=== PATIENT | female | born 1940 | race Caucasian/White ===

== ENCOUNTER 2017-07-14 18:50 | Inpatient (IN) | payer MEDICARE, OTHER, SELFPAY ==
[2017-07-14] MEDS ORDERED: Diphtheria,Pertussis(Acell),Tetanus Vaccine 0.5 ML SDV IM ONE (20:05)
[2017-07-14] MEDS ORDERED: cloNIDine 0.1 MG Tab PO ONE (20:05)
--- NOTE | 2017-07-14 22:38 | EDM.PDOC ---
ED HPI GENERAL MEDICAL PROBLEM - General Chief Complaint: General Stated Complaint: AYESHA LT ARM Time Seen by Provider: 07/14/17 18:55 Source of Information: Reports: Patient, Family History Limitations: Reports: No Limitations - History of Present Illness INITIAL COMMENTS - FREE TEXT/NARRATIVE: 76 y.o.w.f wit h/o CVA, HTN and H/O Sz came to the ed with "shaking of R arm", odynophagia and aphasis. Last time being nl s not known. However, she thinks it started at between 4-5. Lat time being observed being "nl" was yesterday. BP was 220/120 on arrival. Initial screening exam for CVSA was nl. No Gaze Nl FF and FN test. Tongue midline, Speach was nl. 220/120 HR 66 Pulse ox 97 Temp 36.8 Onset Date: 07/14/17 Onset Time: 16:00 (last seen nl yesterday) Duration: Hour(s): ((?)), Intermittent Location: Reports: Face Quality: Reports: Other (off and on r arm shaking, aphasia dysphagia) Improves with: Reports: None Worsens with: Reports: None Context: Reports: Other (H/O CVA) Associated Symptoms: Reports: No Other Symptoms - Related Data Allergies Allergy/AdvReac Type Severity Reaction Status Date / Time No Known Allergies Allergy Verified 08/11/15 19:05 Home Meds: Home Meds Levothyroxine 75 mcg PO DAILY 12/03/14 [History] carBAMazepine [carBAMazepine ER] 200 mg PO DAILY 12/03/14 [History] Metoprolol Tartrate 25 mg PO DAILY 07/14/17 [History] atorvaSTATin [Lipitor] 40 mg PO BEDTIME 07/14/17 [History] carBAMazepine [carBAMazepine ER] 400 mg PO BEDTIME 07/15/17 [History] Past Medical History HEENT History: Reports: Impaired Vision Other HEENT History: wears eyeglasses Cardiovascular History: Reports: High Cholesterol, Hypertension, Other (See Below) Other Cardiovascular History: old pacemaker scar, says it eas removed, can still feel it Neurological History: Reports: CVA, Seizure Other Neuro History: heat stroke, 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, hx seizure disorder, last one in [id number] Social & Family History - Family History Family Medical History: Noncontributory - Tobacco Use Smoking Status *Q: Never Smoker Second Hand Smoke Exposure: No - Caffeine Use Caffeine Use: Reports: None - Recreational Drug Use Recreational Drug Use: No ED ROS GENERAL - Review of Systems Review Of Systems: See Below Constitutional: Reports: No Symptoms HEENT: Reports: No Symptoms Respiratory: Reports: No Symptoms Cardiovascular: Reports: No Symptoms Endocrine: Reports: No Symptoms GI/Abdominal: Reports: No Symptoms : Reports: No Symptoms Musculoskeletal: Reports: No Symptoms Skin: Reports: No Symptoms Neurological: Reports: Tremors (off onn r arm, not since arrival) Psychiatric: Reports: No Symptoms Hematologic/Lymphatic: Reports: No Symptoms Immunologic: Reports: No Symptoms ED EXAM, GENERAL - Physical Exam Exam: See Below Exam Limited By: No Limitations General Appearance: Alert, WD/WN, No Apparent Distress Eye Exam: Bilateral Eye: Normal Inspection Ears: Normal External Exam Ear Exam: Bilateral Ear: Auricle Normal Nose: Normal Inspection, Normal Mucosa Throat/Mouth: Normal Inspection, Normal Lips Head: Atraumatic, Normocephalic Respiratory/Chest: No Respiratory Distress, Lungs Clear, Normal Breath Sounds, No Accessory Muscle Use Cardiovascular: Normal Peripheral Pulses, Regular Rate, Rhythm, No Edema, No Gallop, No Murmur, No Rub Peripheral Pulses: 1+: Carotid (R) GI/Abdominal: Normal Bowel Sounds, Soft, Non-Tender, No Organomegaly (Female) Exam: Deferred Rectal (Female) Exam: Deferred Back Exam: Normal Inspection, Full Range of Motion Extremities: Normal Inspection, Normal Range of Motion, Non-Tender, No Pedal Edema Neurological: Alert, Oriented, CN II-XII Intact, Normal Cognition, Normal Gait, Other (minor weakness right upper and right lower ext, not new.) Psychiatric: Normal Affect, Normal Mood Skin Exam: Warm, Dry, Intact, Normal Color, No Rash Lymphatic: No Adenopathy EKG INTERPRETATION EKG Date: 07/15/17 Time: 00:10 Rhythm: NSR Rate (Beats/Min): 57 [place]: Normal P-Wave: Present QRS: Normal ST-T: Normal QT: Normal Comparison: NA - No Prior EKG Course - Vital Signs Text/Narrative:: 76 y.o.w.f wit h/o CVA, HTN and H/O Sz came to the ed with "shaking of R arm", odynophagia and aphasis. Last time being nl s not known. However, she thinks it started at between 4-5. Lat time being observed being "nl" was yesterday. BP was 220/120 on arrival. Initial screening exam for CVSA was nl. No Gaze Nl FF and FN test. Tongue midline, Speach was nl. 220/120 HR 66 Pulse ox 97 Temp 36.8 , no urinary symptoms PE: WNWD WF with intermittent minor dysphagia and aphasia, minor r sided upper/ lower ext. weakness Imaging: CT head was NAD. Labs: CBC nl Na 141 K 4.1 BUN 17 Cr. 1.1 GFR 48 Impression: H/O CVA, CVA vs TIA vs Myasthenia gravis, HTN encephalopathy Tx: Clonidine 0.1 mg po. Reexam: Pt's BP impoved to 169/76 and she was feeling better. While she was observed in the ED a little longer, she C/O dysphagia abd aphasia, which subsided after 5-6 min. Pt was able to take her night meds. BP was 169/67 on admission 10.28 pm Consultation: Dr. Whaley, Neurologist, [place]: Transfer not indicated at this time, stoke unlikely, Stroke window passed, ASA OK Plan: Admit for obs with tele, MRI brain at 11 am. Last Recorded V/S: Last Vital Signs Temp 36.6 C 07/17/17 08:00 Pulse 61 07/17/17 09:04 Resp 16 07/17/17 08:00 BP 160/79 H 07/17/17 09:04 Pulse Ox 99 07/17/17 08:00 - Orders/Labs/Meds Orders: Medication Orders Aspirin (Ecotrin) 325 mg PO DAILY [facility] Last Admin: 07/17/17 09:05 Dose: 325 mg Admin: 07/16/17 08:20 Dose: 325 mg Admin: 07/15/17 13:15 Dose: 325 mg Atorvastatin Calcium (Lipitor) 40 mg PO BEDTIME [facility] Last Admin: 07/16/17 20:00 Dose: 40 mg Admin: 07/15/17 20:41 Dose: 40 mg Carbamazepine (Tegretol Er) 400 mg PO BEDTIME [facility] Last Admin: 07/16/17 20:00 Dose: 400 mg Admin: 07/15/17 20:42 Dose: 400 mg Carbamazepine (Tegretol Er) 200 mg PO DAILY [facility] Last Admin: 07/17/17 09:04 Dose: 200 mg Admin: 07/16/17 08:20 Dose: 200 mg Admin: 07/15/17 12:55 Dose: Dextrose/Lactated Ringer's (Dextrose 5%-Lactated Ringers) 1,000 mls @ 150 mls/ hr IV ASDIRECTED [facility] Last Admin: 07/16/17 01:27 Dose: 150 mls/hr Infusion: 07/16/17 01:27 Dose: 150 mls/hr Admin: 07/15/17 18:51 Dose: 150 mls/hr Infusion: 07/15/17 18:51 Dose: 150 mls/hr Admin: 07/15/17 12:17 Dose: 150 mls/hr Levothyroxine Sodium (Levothyroxine) 75 mcg PO DAILY [facility] Last Admin: 07/17/17 09:04 Dose: 75 mcg Admin: 07/16/17 08:19 Dose: 75 mcg Metoprolol Tartrate (Lopressor) 25 mg PO DAILY [facility] Last Admin: 07/17/17 09:04 Dose: 25 mg Admin: 07/16/17 08:20 Dose: 25 mg Admin: 07/15/17 12:56 Dose: Sodium Chloride (Saline Flush) 10 ml FLUSH ASDIRECTED PRN PRN Reason: Keep Vein Open Last Admin: 07/14/17 23:13 Dose: 10 ml Labs: Laboratory Tests 07/14/17 07/14/17 07/14/17 Range/Units 21:55 21:55 21:55 WBC 6.3 (4.5-12.0) X10-3/uL RBC 4.03 (3.23-5.20) x10(6)uL Hgb 13.1 (11.5-15.5) g/dL Hct 38.4 (30.0-51.3) % MCV 95.4 (80-96) fL MCH 32.4 (27.7-33.6) pg MCHC 34.0 (32.2-35.4) g/dL RDW 12.2 (11.5-15.5) % Plt Count 151 (125-369) X10(3)uL MPV 7.6 (7.4-10.4) fL Neut % (Auto) 75.8 (46-82) % Lymph % (Auto) 12.9 L (13-37) % [place] % (Auto) 6.3 (4-12) % Eos % (Auto) 3 (1.0-5.0) % Baso % (Auto) 2 (0-2) % Neut # (Auto) 4.8 (1.6-8.3) # Lymph # (Auto) 0.8 (0.6-5.0) # [place] # (Auto) 0.4 (0.0-1.3) # Eos # (Auto) 0.2 (0.0-0.8) # Baso # (Auto) 0.1 (0.0-0.2) # PT 11.4 H (8.7-11.1) INR 1.13 (0.89-1.13) Sodium 145 (135-145) mmol/L Potassium 4.1 (3.5-5.3) mmol/L Chloride 108 (100-110) mmol/L Carbon Dioxide 30 (21-32) mmol/L BUN 17 (7-18) mg/dL Creatinine 1.1 H (0.55-1.02) mg/dL Est Cr Clr Drug Dosing 33.34 mL/min Estimated GFR (MDRD) 48 L (>60) BUN/Creatinine Ratio 15.5 (9-20) Glucose 109 (80-116) mg/dL Calcium 8.7 (8.6-10.2) mg/dL Triglycerides (15-150) mg/dL Cholesterol (50-200) mg/dL LDL Cholesterol Direct (60-130) mg/dL HDL Cholesterol (40-75) mg/dL Cholesterol/HDL Ratio (0-5) Urine Color (YELLOW) Urine Appearance (CLEAR) Urine pH (5.0-6.5) Ur Specific [place] (1.010-1.025) Urine Protein (NEGATIVE) mg/dL Urine Glucose (UA) (NEGATIVE) mg/dL Urine Ketones (NEGATIVE) mg/dL Urine Occult Blood (NEGATIVE) Urine Nitrite (NEGATIVE) Urine Bilirubin (NEGATIVE) Urine Urobilinogen (NEGATIVE) mg/dL Ur Leukocyte Esterase (NEGATIVE) Urine RBC (0) Urine WBC (0) Ur Epithelial Cells Urine Bacteria (NS) Carbamazepine (4.0-12.0) ug/mL 07/14/17 07/15/17 07/15/17 Range/Units 22:35 09:35 09:35 WBC (4.5-12.0) X10-3/uL RBC (3.23-5.20) x10(6)uL Hgb (11.5-15.5) g/dL Hct (30.0-51.3) % MCV (80-96) fL MCH (27.7-33.6) pg MCHC (32.2-35.4) g/dL RDW (11.5-15.5) % Plt Count (125-369) X10(3)uL MPV (7.4-10.4) fL Neut % (Auto) (46-82) % Lymph % (Auto) (13-37) % [place] % (Auto) (4-12) % Eos % (Auto) (1.0-5.0) % Baso % (Auto) (0-2) % Neut # (Auto) (1.6-8.3) # Lymph # (Auto) (0.6-5.0) # [place] # (Auto) (0.0-1.3) # Eos # (Auto) (0.0-0.8) # Baso # (Auto) (0.0-0.2) # PT (8.7-11.1) INR (0.89-1.13) Sodium (135-145) mmol/L Potassium (3.5-5.3) mmol/L Chloride (100-110) mmol/L Carbon Dioxide (21-32) mmol/L BUN (7-18) mg/dL Creatinine (0.55-1.02) mg/dL Est Cr Clr Drug Dosing mL/min Estimated GFR (MDRD) (>60) BUN/Creatinine Ratio (9-20) Glucose (80-116) mg/dL Calcium (8.6-10.2) mg/dL Triglycerides 48 (15-150) mg/dL Cholesterol 156 (50-200) mg/dL LDL Cholesterol Direct 81 (60-130) mg/dL HDL Cholesterol 67 (40-75) mg/dL Cholesterol/HDL Ratio 2.3 (0-5) Urine Color Yellow (YELLOW) Urine Appearance Clear (CLEAR) Urine pH 8.0 H (5.0-6.5) Ur Specific [place] 1.010 (1.010-1.025) Urine Protein Negative (NEGATIVE) mg/dL Urine Glucose (UA) Normal (NEGATIVE) mg/dL Urine Ketones Negative (NEGATIVE) mg/dL Urine Occult Blood Negative (NEGATIVE) Urine Nitrite Negative (NEGATIVE) Urine Bilirubin Negative (NEGATIVE) Urine Urobilinogen Normal (NEGATIVE) mg/dL Ur Leukocyte Esterase Moderate H (NEGATIVE) Urine RBC 0-5 (0) Urine WBC 0-5 (0) Ur Epithelial Cells Occasional Urine Bacteria Rare H (NS) Carbamazepine 7.6 (4.0-12.0) ug/mL Meds: Medications Generic Name Dose Route Start Last Admin Trade Name Abby PRN Reason Stop Dose Admin Aspirin 325 mg 07/15/17 11:15 07/17/17 09:05 Ecotrin PO 325 mg DAILY RENE Administration Atorvastatin Calcium 40 mg 07/15/17 21:00 07/16/17 20:00 Lipitor PO 40 mg BEDTIME RENE Administration Carbamazepine 400 mg 07/15/17 21:00 07/16/17 20:00 Tegretol Er PO 400 mg BEDTIME RENE Administration Carbamazepine 200 mg 07/15/17 11:15 07/17/17 09:04 Tegretol Er PO 200 mg DAILY RENE Administration Dextrose/Lactated Ringer's 1,000 mls @ 150 mls/hr 07/15/17 11:15 07/16/17 01: 27 Dextrose 5%-Lactated Ringers IV 150 mls/hr ASDIRECTED RENE Administration Levothyroxine Sodium 75 mcg 07/16/17 09:00 07/17/17 09:04 Levothyroxine PO 75 mcg DAILY RENE Administration Metoprolol Tartrate 25 mg 07/15/17 11:15 07/17/17 09:04 Lopressor PO 25 mg DAILY RENE Administration Sodium Chloride 10 ml 07/14/17 23:12 07/14/17 23:13 Saline Flush FLUSH 10 ml ASDIRECTED PRN Administration Keep Vein Open Discontinued Medications Generic Name Dose Route Start Last Admin Trade Name Abby PRN Reason Stop Dose Admin Aspirin 324 mg 07/14/17 23:07 07/15/17 00:26 Aspirin PO 07/14/17 23:08 324 mg ONETIME ONE Administration Clonidine HCl 0.1 mg 07/14/17 20:05 07/14/17 20:27 Catapres PO 07/14/17 20:06 0.1 mg ONETIME ONE Administration Diphtheria/Tetanus/Acell Pertussis 0.5 ml 07/14/17 20:05 07/14/17 21:00 Adacel IM 07/14/17 20:06 0.5 ml .ONCE ONE Administration Labetalol HCl 20 mg 07/15/17 12:50 07/15/17 13:55 Normodyne IVPUSH 07/15/17 12:51 20 mg ONETIME ONE Administration Protocol Departure - Departure Time of Disposition: 18:00 Disposition: Refer to Observation Condition: Fair Clinical Impression: CVA (cerebral vascular accident) - Discharge Information
[2017-07-14] MEDS ORDERED: Aspirin 81 MG Tab.Chew PO ONE (23:07)
[2017-07-14] MEDS ORDERED: Sodium Chloride 0.9% 10 ML Syringe FLUSH PRN (23:12)
--- NOTE | 2017-07-15 10:54 | PCM.HP ---
H&P History of Present Illness - General Date of Service: 07/15/17 Admit Problem/Dx: Admission Diagnosis/Problem Admission Diagnosis/Problem CVA, Cerebrovascular accident Source of Information: Patient, Old Records - History of Present Illness Initial Comments - Free Text/Narative: 76-year-old female who came in because of possible stroke. She was knitting when she developed weakness and shaking clumsiness of the right upper extremity. In addition she complained of some difficulty swallowing and dysarthria. All these symptoms have improved in the last 12 hours since she was admitted. However she still lightheaded and dizzy on feet. She has no chest pain or shortness of breath. 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 Kenzie lives alone in an apartment. - Related Data Allergies/Adverse Reactions: Allergies Allergy/AdvReac Type Severity Reaction Status Date / Time No Known Allergies Allergy Verified 08/11/15 19:05 Home Medications: Home Meds Levothyroxine 75 mcg PO DAILY 12/03/14 [History] carBAMazepine [carBAMazepine ER] 200 mg PO DAILY 12/03/14 [History] Metoprolol Tartrate 25 mg PO DAILY 07/14/17 [History] atorvaSTATin [Lipitor] 40 mg PO BEDTIME 07/14/17 [History] carBAMazepine [Carbamazepine ER] 400 mg PO BEDTIME 07/15/17 [History] Past Medical History HEENT History: Reports: Impaired Vision Other HEENT History: wears eyeglasses Cardiovascular History: Reports: High Cholesterol, Hypertension, Other (See Below) Other Cardiovascular History: 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 Exam - Exam Exam: See Below - Vital Signs Vital Signs: Last Vital Signs Temp 97.9 F 07/15/17 08:00 Pulse 64 07/15/17 08:00 Resp 16 07/15/17 08:00 BP 182/79 H 07/15/17 08:00 Pulse Ox 98 07/15/17 08:00 Weight: 67.903 kg - Exam General: Alert, Oriented, 4 HEENT: PERRLA, Hearing Intact, Mucosa Moist & [place], Nares Patent, Normal Nasal Septum, Posterior Pharynx Clear, Conjunctiva Clear, EOMI, EACs Clear, TMs Clear Neck: Supple, Trachea Midline, 2 Lungs: Clear to Auscultation, Normal Respiratory Effort Cardiovascular: Regular Rate, Regular Rhythm GI/Abdominal Exam: Normal Bowel Sounds, Soft, Non-Tender, No Organomegaly, No Distention, No Abnormal Bruit, No Mass, Pelvis Stable (Female) Exam: Deferred Rectal (Female) Exam: Deferred Back Exam: Normal Inspection, Full Range of Motion, NT Extremities: Normal Inspection, Normal Range of Motion, Non-Tender, No Pedal Edema, Normal Capillary Refill Skin: Warm, Dry, Intact Neurological: Cranial Nerves Intact, Focal Deficit (Rt weakness 4+/5) Neuro Extensive - Mental Status: Oriented x3, Normal Cognition Neuro Extensive - Motor, Sensory, Reflexes: Dysarthria Psychiatric: Alert, Normal Affect, Normal Mood - Patient Data Lab Results Last 24 hrs: Laboratory Results - last 24 hr 07/15/17 Range/Units 09:35 Triglycerides 48 (15-150) mg/dL Cholesterol 156 (50-200) mg/dL LDL Cholesterol Direct 81 (60-130) mg/dL HDL Cholesterol 67 (40-75) mg/dL Cholesterol/HDL Ratio 2.3 (0-5) Result Diagrams: 07/14/17 21:55 07/14/17 21:55 EKG INTERPRETATION Rhythm: NSR *Q Meaningful Use (ADM) - VTE *Q VTE Criteria *Q: - Stroke *Q Stroke Criteria *Q: - AMI *Q AMI Criteria *Q: - Problem List (1) Cerebrovascular accident (CVA) determined by clinical assessment SNOMED Code(s): 405781238 ICD Code: I63.9 - CEREBRAL INFARCTION, UNSPECIFIED Status: Acute Current Visit: No (2) HTN (hypertension) SNOMED Code(s): 47860421 ICD Code: I10 - ESSENTIAL (PRIMARY) HYPERTENSION Status: Acute Current Visit: Yes Qualifiers: Hypertension type: essential hypertension Qualified Code(s): I10 - Essential (primary) hypertension (3) HLD (hyperlipidemia) SNOMED Code(s): 77706053 ICD Code: E78.5 - HYPERLIPIDEMIA, UNSPECIFIED Status: Acute Current Visit : Yes Qualifiers: Hyperlipidemia type: unspecified Qualified Code(s): E78.5 - Hyperlipidemia , unspecified (4) Seizure disorder SNOMED Code(s): 706856436 ICD Code: G40.909 - EPILEPSY, UNSP, NOT INTRACTABLE, WITHOUT STATUS EPILEPTICUS Status: Acute Current Visit: Yes Problem List Initiated/Reviewed/Updated: Yes Orders Last 24hrs: Active Orders 24 hr Category Date Time Status Nursing Bedside Swallow Screen [RC] ASDIRECTED Care 07/15/17 09:17 Active OT Evaluation and Treatment [CONS] Routine Cons 07/15/17 09:17 Active PT Evaluation and Treatment [CONS] Routine Cons 07/15/17 09:17 Active Nothing Per Oral Diet [DIET] Diet 07/15/17 Lunch Active CXR [Chest 1V Frontal] [CR] Routine Exams 07/15/17 09:16 Taken BASIC METABOLIC PANEL,BMP [CHEM] AM Lab 07/16/17 05:11 Ordered CBC WITH AUTO DIFF [HEME] AM Lab 07/16/17 05:11 Ordered KEPPRA [REF] Routine Lab 07/15/17 09:35 Received Sodium Chloride 0.9% [Saline Flush] Med 07/14/17 23:12 Active 10 ml FLUSH ASDIRECTED PRN Saline Lock Insert [OM.PC] Routine Oth 07/14/17 23:12 Ordered Medication Orders Sodium Chloride (Saline Flush) 10 ml FLUSH ASDIRECTED PRN PRN Reason: Keep Vein Open Last Admin: 07/14/17 23:13 Dose: 10 ml Assessment/Plan Comment:: I reviewed the [place] chart. I also reviewed the admission notes from 2016 , including an echocardiogram which was found to be normal and an ultrasound of the carotids was negative. I have recommended speech therapy and bedside nursing evaluation for swallowing, thereafter advance the diet. I've also recommended to continue aspirin, a statin, and antihypertensive she was previously taking. We will consult physical and occupational therapy.we are unable to obtain an MRI because of a previous pacemaker pot she has some the left upper chest area
[2017-07-15] MEDS ORDERED: CARBAMAZEPINE 200 MG PO SCH (11:15)
--- NOTE | 2017-07-15 11:26 | CR ---
INDICATION: Pacemaker/stroke. CHEST: AP portable upright view of the chest, 07/15/2017, was compared with . Poor inspiration is noted. Rotation of the chest to the left is noted. The heart did not appear grossly enlarged, but is prominent, compared with the previous study, at least partly due to change in positioning and poor inspiration. It may be within normal limits or somewhat enlarged. PA and lateral views of the chest may be helpful for further evaluation of the heart size, as felt to be clinically necessary. Pacemaker leads are noted, remaining in place, although the pacemaker has apparently been removed. Overlying EKG leads are noted. An active infiltrate or effusion was not seen. IMPRESSION: No acute process. MTDD
[2017-07-15] MEDS: Dextrose 5%-Lactated Ringers 1,000 ML IV SCH ×2 (12:17→18:51)
[2017-07-15] MEDS ORDERED: Labetalol 20 MG/4 ML Syringe IVPUSH ONE (12:50)
[2017-07-15] MEDS: carBAMazepine 200 MG TAB.ER PO SCH ×2 (12:55→20:42)
[2017-07-15] MEDS: Metoprolol Tartrate 25 MG Tab PO SCH (12:56)
[2017-07-15] MEDS: Aspirin 325 MG Tab.EC PO SCH (13:15)
[2017-07-15] MEDS: atorvaSTATin 40 MG Tab PO SCH (20:41)
[2017-07-16] MEDS: Dextrose 5%-Lactated Ringers 1,000 ML IV SCH (01:27)
[2017-07-16] MEDS: Levothyroxine 75 MCG Tab PO SCH (08:19)
[2017-07-16] MEDS: Metoprolol Tartrate 25 MG Tab PO SCH (08:20)
[2017-07-16] MEDS: carBAMazepine 200 MG TAB.ER PO SCH ×2 (08:20→20:00)
[2017-07-16] MEDS: Aspirin 325 MG Tab.EC PO SCH (08:20)
--- NOTE | 2017-07-16 10:21 | PCM.PN ---
- General Info Date of Service: 07/16/17 Subjective Update: Kenzie complains of clumsiness, weakness of the right arm. She still has speech disturbance and is unsteady on her feet.She has no chest pain or shortness of breath, slept well otherwise. Functional Status: Reports: Pain Controlled, Tolerating Diet - Review of Systems General: Reports: No Symptoms HEENT: Reports: No Symptoms Pulmonary: Reports: No Symptoms Cardiovascular: Reports: No Symptoms - Patient Data Vitals - Most Recent: Last Vital Signs Temp 98.0 F 07/16/17 08:00 Pulse 65 07/16/17 08:20 Resp 16 07/16/17 08:00 BP 168/88 H 07/16/17 08:20 Pulse Ox 98 07/16/17 08:00 Weight - Most Recent: 68.629 kg I&O - Last 24 Hours: Intake & Output 07/15/17 07/16/17 07/16/17 22:59 06:59 14:59 Intake Total 1536 1376 Output Total 500 Balance 1036 1376 Lab Results Last 24 Hours: Laboratory Results - last 24 hr 07/16/17 07/16/17 Range/Units 06:55 06:55 WBC 4.5 (4.5-12.0) X10-3/uL RBC 3.76 (3.23-5.20) x10(6)uL Hgb 12.3 (11.5-15.5) g/dL Hct 36.0 (30.0-51.3) % MCV 95.7 (80-96) fL MCH 32.7 (27.7-33.6) pg MCHC 34.2 (32.2-35.4) g/dL RDW 11.9 (11.5-15.5) % Plt Count 130 (125-369) X10(3)uL MPV 7.4 (7.4-10.4) fL Neut % (Auto) 73.9 (46-82) % Lymph % (Auto) 12.0 L (13-37) % [place] % (Auto) 10.2 (4-12) % Eos % (Auto) 3 (1.0-5.0) % Baso % (Auto) 1 (0-2) % Neut # (Auto) 3.4 (1.6-8.3) # Lymph # (Auto) 0.5 L (0.6-5.0) # [place] # (Auto) 0.5 (0.0-1.3) # Eos # (Auto) 0.1 (0.0-0.8) # Baso # (Auto) 0.0 (0.0-0.2) # Sodium 148 H (135-145) mmol/L Potassium 3.8 (3.5-5.3) mmol/L Chloride 110 (100-110) mmol/L Carbon Dioxide 31 (21-32) mmol/L BUN 7 D (7-18) mg/dL Creatinine 1.0 (0.55-1.02) mg/dL Est Cr Clr Drug Dosing 36.68 mL/min Estimated GFR (MDRD) 54 L (>60) BUN/Creatinine Ratio 7.0 L (9-20) Glucose 112 (80-116) mg/dL Calcium 8.9 (8.6-10.2) mg/dL Med Orders - Current: Current Medications Aspirin (Ecotrin) 325 mg PO DAILY [facility] Last Admin: 07/16/17 08:20 Dose: 325 mg Atorvastatin Calcium (Lipitor) 40 mg PO BEDTIME [facility] Last Admin: 07/15/17 20:41 Dose: 40 mg Carbamazepine (Tegretol Er) 400 mg PO BEDTIME [facility] Last Admin: 07/15/17 20:42 Dose: 400 mg Carbamazepine (Tegretol Er) 200 mg PO DAILY [facility] Last Admin: 07/16/17 08:20 Dose: 200 mg Dextrose/Lactated Ringer's (Dextrose 5%-Lactated Ringers) 1,000 mls @ 150 mls/ hr IV ASDIRECTED [facility] Last Admin: 07/16/17 01:27 Dose: 150 mls/hr Levothyroxine Sodium (Levothyroxine) 75 mcg PO DAILY [facility] Last Admin: 07/16/17 08:19 Dose: 75 mcg Metoprolol Tartrate (Lopressor) 25 mg PO DAILY [facility] Last Admin: 07/16/17 08:20 Dose: 25 mg Sodium Chloride (Saline Flush) 10 ml FLUSH ASDIRECTED PRN PRN Reason: Keep Vein Open Last Admin: 07/14/17 23:13 Dose: 10 ml Discontinued Medications Aspirin (Aspirin) 324 mg PO ONETIME ONE Stop: 07/14/17 23:08 Last Admin: 07/15/17 00:26 Dose: 324 mg Clonidine HCl (Catapres) 0.1 mg PO ONETIME ONE Stop: 07/14/17 20:06 Last Admin: 07/14/17 20:27 Dose: 0.1 mg Diphtheria/Tetanus/Acell Pertussis (Adacel) 0.5 ml IM .ONCE ONE Stop: 07/14/17 20:06 Last Admin: 07/14/17 21:00 Dose: 0.5 ml Labetalol HCl (Normodyne) 20 mg IVPUSH ONETIME ONE PRN Reason: Protocol Stop: 07/15/17 12:51 Last Admin: 07/15/17 13:55 Dose: 20 mg - Exam Quality Assessment: No: Supplemental Oxygen General: Alert, Oriented HEENT: Pupils Equal, Pupils Reactive, EOMI, Mucous Membr. Moist/[place] Neck: Supple Lungs: Clear to Auscultation, Normal Respiratory Effort Cardiovascular: Regular Rate, Regular Rhythm Psy/Mental Status: Alert, Normal Affect, Normal Mood - Problem List & Annotations (1) Cerebrovascular accident (CVA) determined by clinical assessment SNOMED Code(s): 206430555 Code(s): I63.9 - CEREBRAL INFARCTION, UNSPECIFIED Status: Acute Current Visit: No (2) HTN (hypertension) SNOMED Code(s): 02153055 Code(s): I10 - ESSENTIAL (PRIMARY) HYPERTENSION Status: Acute Current Visit: Yes Qualifiers: Hypertension type: essential hypertension Qualified Code(s): I10 - Essential (primary) hypertension (3) HLD (hyperlipidemia) SNOMED Code(s): 81753952 Code(s): E78.5 - HYPERLIPIDEMIA, UNSPECIFIED Status: Acute Current Visit : Yes Qualifiers: Hyperlipidemia type: unspecified Qualified Code(s): E78.5 - Hyperlipidemia , unspecified (4) Seizure disorder SNOMED Code(s): 820703509 Code(s): G40.909 - EPILEPSY, UNSP, NOT INTRACTABLE, WITHOUT STATUS EPILEPTICUS Status: Acute Current Visit: Yes - Problem List Review Problem List Initiated/Reviewed/Updated: Yes - My Orders Last 24 Hours: My Active Orders 07/15/17 11:15 carBAMazepine [TEGretol ER] 200 mg PO DAILY 07/15/17 Dinner Full Liquid Diet [DIET] 07/16/17 10:18 Discontinue Telemetry Monitoring [Cardiac Monitoring Discontinue] [RC] Click to Edit Peripheral IV Discontinue [OM.PC] Routine 07/17/17 05:11 BASIC METABOLIC PANEL,BMP [CHEM] AM - Plan Plan:: we'll resume her blood pressure medications this morning -metoprolol. I'll also continue the aspirin and antiplatelet therapy. I appreciate the consultations from physical & occupational therapy,which we'll continue. Speech therapy has appt for swalowing eval this evening. I have discontinued IV line and remote telemetry.I believe she probably go to swing bed for rehabilitation before discharge to home
[2017-07-16] MEDS: atorvaSTATin 40 MG Tab PO SCH (20:00)
[2017-07-17] MEDS: Metoprolol Tartrate 25 MG Tab PO SCH (09:04)
[2017-07-17] MEDS: Levothyroxine 75 MCG Tab PO SCH (09:04)
[2017-07-17] MEDS: carBAMazepine 200 MG TAB.ER PO SCH ×2 (09:04→20:33)
[2017-07-17] MEDS: Aspirin 325 MG Tab.EC PO SCH (09:05)
--- NOTE | 2017-07-17 10:36 | CR ---
INDICATION: Rule out aspiration, currently on nectar thickened liquids. SWALLOWING FUNCTION WITH VIDEO: 3 minutes 21 seconds videofluoroscopy time with DVD recording was obtained 07/16/2017, utilizing various barium-tinged meals. No evidence of penetration or aspiration occurred during the examination. There was retention in the valleculae which was resolved by additional swallows. One to two additional swallows were necessary. The study was otherwise unremarkable. [facility]
--- NOTE | 2017-07-17 14:57 | PN ---
DATE SEEN: 07/17/2017 HISTORY OF PRESENT ILLNESS: Kenzie Luna is a 76-year-old female admitted for possible stroke. Was knitting, developed weakness and shakiness of her right upper extremity, some difficulty swallowing and some difficulty with word finding. Was admitted for observation and treatment. CT scan revealed no evidence of an acute infarct, hemorrhage, or mass-like effect. PT was actively involved. Response was satisfactory, improvement in speech was noted. Swallowing study revealed no evidence of difficulties. Soft foods encouraged. LABORATORY STUDIES: Of significance; CBC is unremarkable. Electrolytes; mildly elevated sodium 145 and 148, GFR 54 and 48, and urine free of concerns. PHYSICAL EXAMINATION: VITAL SIGNS: Stable. Blood pressure 160/79, respirations 16, O2 saturation 99%, temperature 36.6. HEENT: Speech was fluent. NECK: Benign. Thyroid small. CHEST: Decreased breath sounds both lung bases. HEART: Regular without ectopy or murmur. Pacemaker, left upper chest wall. ABDOMEN: Benign. Strength was reduced to about 20%, right upper extremity. ASSESSMENT: Cerebrovascular accident, improving. PLAN: PT happy with outcome, swing bed under consideration, home services noted. [facility], cregivers of similar age available. /[id number] CHARLENE/DEVAN
[2017-07-17] MEDS ORDERED: cloNIDine 0.1 MG Tab PO ONE (18:02)
[2017-07-17] MEDS ORDERED: Labetalol 20 MG/4 ML Syringe IVPUSH ONE (19:55)
[2017-07-17] MEDS: atorvaSTATin 40 MG Tab PO SCH (20:33)
[2017-07-18] MEDS: Levothyroxine 75 MCG Tab PO SCH (08:16)
[2017-07-18] MEDS: Metoprolol Tartrate 25 MG Tab PO SCH (08:17)
[2017-07-18] MEDS: carBAMazepine 200 MG TAB.ER PO SCH ×2 (08:18→20:31)
[2017-07-18] MEDS: Aspirin 325 MG Tab.EC PO SCH (08:18)
[2017-07-18] MEDS: atorvaSTATin 40 MG Tab PO SCH (20:30)
--- NOTE | 2017-07-18 23:17 | PN ---
DATE SEEN: 07/18/2017 SUBJECTIVE: Kenzie Luna is a 76-year-old female, admitted with CVA. CT without contrast, normal. No MRI performed. Her right upper extremity strength is improved, writing with great success. Laboratory studies of significance, unremarkable; 07/17/2016, sodium 148, GFR 54. PHYSICAL EXAMINATION: VITAL SIGNS: 36.6, 59 is the pulse, 140/80, 18 are the respirations, 99%. GENERAL: Cooperative, conversant. NECK: Benign. Thyroid small. CHEST: Clear in all lung scott. HEART: Regular without ectopy, S3, or murmur. EXTREMITIES: Personal Caregiver strength about 10% reduced, compared to left. CVA, right upper extremity weakness improving. PLAN: Medications, care and treatment appropriate. Antiplatelet therapy, 325 mg aspirin on board. Complementary care and well being. Plan to discharge Thursday. /[id number] CHARLENE/DEVAN
[2017-07-19] MEDS: Aspirin 325 MG Tab.EC PO SCH (08:25)
[2017-07-19] MEDS: Levothyroxine 75 MCG Tab PO SCH (08:25)
[2017-07-19] MEDS: Metoprolol Tartrate 25 MG Tab PO SCH (08:25)
[2017-07-19] MEDS: carBAMazepine 200 MG TAB.ER PO SCH ×2 (08:25→20:27)
--- NOTE | 2017-07-19 10:19 | PN ---
DATE SEEN: 07/19/2017 SUBJECTIVE: Italia Luna is a 76-year-old female admitted with acute stroke symptoms, particular of right upper extremity. Progress has been made. PT's ongoing care revealed little need for swing bed care. Strength has improved markedly. LABORATORY STUDIES: None new. OBJECTIVE: VITAL SIGNS: Stable. 36.8, 56, 153/78, 18, and 95% on room air. GENERAL: Speech is fluent. Conduct appropriate. NECK: Benign. Thyroid small. No carotid bruits. CHEST: Clear in all lung scott. HEART: Regular without ectopy or murmur. ABDOMEN: Benign. 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 IMPRESSION: Cerebrovascular accident with right upper extremity weakness. PLAN: Antiplatelet therapy in place. Complementary care and well being. Plan discharge tomorrow. /[id number] CHARLENE/DEVAN
[2017-07-19] MEDS ORDERED: carBAMazepine 200 MG Cap.ER PO ONE (10:56)
[2017-07-19] MEDS: atorvaSTATin 40 MG Tab PO SCH (20:26)
[2017-07-20 08:54] VITALS: BP 153/78
[2017-07-20] MEDS: Aspirin 325 MG Tab.EC PO SCH (08:54)
[2017-07-20] MEDS: Levothyroxine 75 MCG Tab PO SCH (08:54)
[2017-07-20] MEDS: Metoprolol Tartrate 25 MG Tab PO SCH (08:54)
[2017-07-20] MEDS ORDERED: carBAMazepine 200 MG TAB.ER PO SCH (09:00)
--- NOTE | 2017-07-21 01:10 | DISCH ---
DISCHARGE DATE: 07/20/2017 HOSPITAL COURSE: Kenzie Luna is a 76-year-old female, admitted by Dr. Gorman. Presented with suspicion for stroke. Developed weakness, shakiness, and clumsiness, right upper extremity; difficulty swallowing and dysarthric speech. CT scan revealed nothing informative. She has had a previous left CVA with bladder consequences. In-hospital course was uncomplicated. Laboratory studies were performed. Diagnostic interventions, medications reviewed and appropriate, and response was satisfactory. At the time of discharge, PT had reported good gains in the right upper extremity strength, difficulty gait, station was appropriate, use of walker was limited. Discharged in good condition. DISCHARGE MEDICATIONS: Please see med recon list. SURGICAL PROCEDURES: None. CONSULTATION: None. ADDENDUM: A 30 minutes of visit time involved in discharge planning for this patient. /[id number] CHARLENE/DEVAN
[2017-07-21] MEDS ORDERED: carBAMazepine 200 MG Cap.ER PO SCH (09:00)
== END 2017-07-20 11:15 | disposition home or self-care (01) | DRG 66 ==
LOC: FB.ED 18:50 → FB.MS 22:57 → OBSVTOIN 07-15 11:11
PROVIDERS: ADMIT Family Medicine; ATTEND Family Medicine
DX: I63.9 Cerebral infarction, unspecified (principal); G83.21 Monoplegia of upper limb affecting right dominant side; I10 Essential (primary) hypertension; G40.909 Epilepsy, unspecified, not intractable, without status epilepticus; R13.10 Dysphagia, unspecified; R47.01 Aphasia; R53.1 Weakness; Z86.73 Personal history of transient ischemic attack (TIA), and cerebral infarction without residual deficits; E78.5 Hyperlipidemia, unspecified; H54.7 Unspecified visual loss; Z79.82 Long term (current) use of aspirin
CPT/HCPCS: 36415 ×2; 70450; 71045; 80048; 80061; 80156; 81001; 85025; 85610; 90715; 93005 ×2; 99285; A9270 ×2; J7050; 74230; 90471; 92610-GN; 92611-GN; 93010; 97110-GO; 97112-GP; 97116-GP; 97162-GP; 97166-GO; 97530-GO-KX; 97530-GP; 97535-GO; G0378; J7042

== ENCOUNTER 2017-12-09 16:27 | Observation (INO) | payer MEDICARE, OTHER, MEDICAID ==
--- NOTE | 2017-12-09 17:11 | EDM.PDOC ---
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 well last night, ate bfast and lunch, drove to [place] to visit a friend, as she was walking out the director staffing noticed that she took a step backwards, seemed disoriented, did not fall, no incontinence of B or B, no shaking was disoriented on arrival here, seemed postictal does not remember when she was last in hospital (07/09 for 5d for similar sxs) taking all meds, sets them up 2m in advance, on carbamazepin has had seizures since a heat stroke 1996, cannot describe a typical sxs to me, does not remember last szs (05/08 as per [employer]) PCP was Dr Macedo who is retiring, now is Dr Gorman does not know what happened today, no specific c/o now has h/o CVA no f/c/d, no sob, no n/v - Related Data Allergies Allergy/AdvReac Type Severity Reaction Status Date / Time No Known Allergies Allergy Verified 12/09/17 18:27 Home Meds: Home Meds . [Unable to Verify Home Med List] 12/09/17 [History] Past Medical History HEENT History: Reports: Impaired Vision Other HEENT History: wears eyeglasses Cardiovascular History: Reports: High Cholesterol, Hypertension, Other (See Below) Other Cardiovascular History: old pacemaker scar, says it was removed, can still feel it Neurological History: Reports: CVA, Seizure Other Neuro History: heat stroke, 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, hx seizure disorder, last one in mar-2017 Social & Family History - Family History Family Medical History: Noncontributory - Tobacco Use Smoking Status *Q: Never Smoker Second Hand Smoke Exposure: No - Caffeine Use Caffeine Use: Reports: Soda Caffeine Use Comment: 1 can per day. - Recreational Drug Use Recreational Drug Use: No ED ROS GENERAL - Review of Systems Review Of Systems: See Below Constitutional: Reports: Weakness. Denies: Fever, Chills, Diaphoresis, Decreased Appetite HEENT: Reports: No Symptoms Respiratory: Reports: No Symptoms. Denies: Shortness of Breath Cardiovascular: Reports: No Symptoms. Denies: Chest Pain Endocrine: Reports: No Symptoms GI/Abdominal: Reports: No Symptoms. Denies: Abdominal Pain, Nausea, Vomiting : Reports: No Symptoms Musculoskeletal: Reports: No Symptoms Skin: Reports: No Symptoms Neurological: Reports: Confusion, Difficulty Walking, Weakness, Gait Disturbance. Denies: Dizziness, Headache, Numbness Psychiatric: Reports: No Symptoms Hematologic/Lymphatic: Reports: No Symptoms Immunologic: Reports: No Symptoms ED EXAM, NEURO - Physical Exam Exam: See Below Exam Limited By: Altered Mental Status General Appearance: Alert, WD/WN, Other (pleasant, very vague re sxs, poor memory c/w postictal) Eye Exam: Bilateral Eye: Normal Inspection Ears: Normal External Exam, Hearing Grossly Normal Nose: Normal Inspection, Normal Mucosa, No Blood Throat/Mouth: Normal Inspection, Normal Lips, Normal Teeth, Normal Gums, Normal Oropharynx, Normal Voice, No Airway Compromise Head Exam: Atraumatic, Normocephalic Neck: Normal Inspection, Supple, Non-Tender, Full Range of Motion Respiratory/Chest: No Respiratory Distress, Lungs Clear, Normal Breath Sounds, No Accessory Muscle Use, Chest Non-Tender Cardiovascular: Regular Rate, Rhythm, No Edema, No Gallop, No JVD, No Rub, Systolic Murmur GI/Abdominal: Soft, Non-Tender, No Distention Neurological: Alert, CN II-XII Intact, Normal Reflexes, No Motor/Sensory Deficits, Other (DTRs 2+ x 8, somewhat flat affect, vague manner, poor memory, says "that is a good question" often without answering the quesiton) Back Exam: Normal Inspection, Full Range of Motion. No: CVA Tenderness (R), CVA Tenderness (L) Extremities: Normal Inspection, Normal Range of Motion Psychiatric: Depressed Mood, Flat Affect Skin Exam: Warm Course - Vital Signs Last Recorded V/S: Last Vital Signs Temp 36.5 C 12/09/17 16:30 Pulse 65 12/09/17 16:30 Resp 16 12/09/17 16:30 BP 160/81 H 12/09/17 16:30 Pulse Ox 100 12/09/17 16:30 Orthostatic Blood Pressure [ 165/91 Standing] Orthostatic Blood Pressure [ 185/84 Sitting] Orthostatic Blood Pressure [ 176/88 Supine] - Orders/Labs/Meds Orders: Active Orders 24 hr Category Date Time Status Admission Status [Patient Status] [ADT] Routine ADT 12/09/17 18:35 Ordered EKG Documentation Completion [RC] ASDIRECTED Care 12/09/17 17:02 Active Orthostatic Vital Signs [RC] ASDIRECTED Care 12/09/17 17:02 Active Chest 2V [CR] Stat Exams 12/09/17 17:02 Taken Head wo Cont [CT] Stat Exams 12/09/17 17:08 Taken UA W/MICROSCOPIC [URIN] Stat Lab 12/09/17 18:30 Ordered Sodium Chloride 0.9% [Normal Saline] 1,000 ml Med 12/09/17 17:15 Active IV ASDIRECTED EKG 12 Lead [EK] Routine Ther 12/09/17 17:01 Ordered Medication Orders Sodium Chloride (Normal Saline) 1,000 mls @ 999 mls/hr IV ASDIRECTED [facility] Labs: Laboratory Tests 12/09/17 12/09/17 12/09/17 Range/Units 17:10 17:10 17:10 WBC 5.1 (4.5-12.0) X10-3/uL RBC 4.19 (3.23-5.20) x10(6)uL Hgb 14.0 (11.5-15.5) g/dL Hct 40.2 (30.0-51.3) % MCV 95.8 (80-96) fL MCH 33.4 (27.7-33.6) pg MCHC 34.9 (32.2-35.4) g/dL RDW 12.3 (11.5-15.5) % Plt Count 203 (125-369) X10(3)uL MPV 7.1 L (7.4-10.4) fL Neut % (Auto) 70.9 (46-82) % Lymph % (Auto) 15.5 (13-37) % [place] % (Auto) 8.3 (4-12) % Eos % (Auto) 3 (1.0-5.0) % Baso % (Auto) 2 (0-2) % Neut # (Auto) 3.6 (1.6-8.3) # Lymph # (Auto) 0.8 (0.6-5.0) # [place] # (Auto) 0.4 (0.0-1.3) # Eos # (Auto) 0.2 (0.0-0.8) # Baso # (Auto) 0.1 (0.0-0.2) # Sodium 133 L D (135-145) mmol/L Potassium 4.2 (3.5-5.3) mmol/L Chloride 96 L D (100-110) mmol/L Carbon Dioxide 31 (21-32) mmol/L BUN 23 H D (7-18) mg/dL Creatinine 1.2 H (0.55-1.02) mg/dL Est Cr Clr Drug Dosing 34.98 mL/min Estimated GFR (MDRD) 44 L (>60) BUN/Creatinine Ratio 19.2 (9-20) Glucose 106 (80-116) mg/dL Calcium 8.9 (8.6-10.2) mg/dL Total Bilirubin 0.3 (0.1-1.3) mg/dL AST 30 H (5-25) IU/L ALT 20 (12-36) U/L Alkaline Phosphatase 129 H (56-112) IU/L Troponin I < 0.017 L (<0.017-0.056) ng/mL C-Reactive Protein < 0.2 L (0.5-0.9) mg/dL NT-Pro-B Natriuret Pep 334 (<=450) pg/mL Total Protein 7.4 (6.0-8.0) g/dL Albumin 3.9 (3.2-4.6) g/dL Globulin 3.5 g/dL Albumin/Globulin Ratio 1.1 Urine Color (YELLOW) Urine Appearance (CLEAR) Urine pH (5.0-6.5) Ur Specific [place] (1.010-1.025) Urine Protein (NEGATIVE) mg/dL Urine Glucose (UA) (NEGATIVE) mg/dL Urine Ketones (NEGATIVE) mg/dL Urine Occult Blood (NEGATIVE) Urine Nitrite (NEGATIVE) Urine Bilirubin (NEGATIVE) Urine Urobilinogen (NEGATIVE) mg/dL Ur Leukocyte Esterase (NEGATIVE) Urine RBC (0) Urine WBC (0) Ur Squamous Epith Cells (NS,R,O) Urine Bacteria (NS) Carbamazepine 11.0 (4.0-12.0) ug/mL 12/09/17 Range/Units 18:30 WBC (4.5-12.0) X10-3/uL RBC (3.23-5.20) x10(6)uL Hgb (11.5-15.5) g/dL Hct (30.0-51.3) % MCV (80-96) fL MCH (27.7-33.6) pg MCHC (32.2-35.4) g/dL RDW (11.5-15.5) % Plt Count (125-369) X10(3)uL MPV (7.4-10.4) fL Neut % (Auto) (46-82) % Lymph % (Auto) (13-37) % [place] % (Auto) (4-12) % Eos % (Auto) (1.0-5.0) % Baso % (Auto) (0-2) % Neut # (Auto) (1.6-8.3) # Lymph # (Auto) (0.6-5.0) # [place] # (Auto) (0.0-1.3) # Eos # (Auto) (0.0-0.8) # Baso # (Auto) (0.0-0.2) # Sodium (135-145) mmol/L Potassium (3.5-5.3) mmol/L Chloride (100-110) mmol/L Carbon Dioxide (21-32) mmol/L BUN (7-18) mg/dL Creatinine (0.55-1.02) mg/dL Est Cr Clr Drug Dosing mL/min Estimated GFR (MDRD) (>60) BUN/Creatinine Ratio (9-20) Glucose (80-116) mg/dL Calcium (8.6-10.2) mg/dL Total Bilirubin (0.1-1.3) mg/dL AST (5-25) IU/L ALT (12-36) U/L Alkaline Phosphatase (56-112) IU/L Troponin I (<0.017-0.056) ng/mL C-Reactive Protein (0.5-0.9) mg/dL NT-Pro-B Natriuret Pep (<=450) pg/mL Total Protein (6.0-8.0) g/dL Albumin (3.2-4.6) g/dL Globulin g/dL Albumin/Globulin Ratio Urine Color Yellow (YELLOW) Urine Appearance Clear (CLEAR) Urine pH 6.0 (5.0-6.5) Ur Specific [place] 1.015 (1.010-1.025) Urine Protein Negative (NEGATIVE) mg/dL Urine Glucose (UA) Normal (NEGATIVE) mg/dL Urine Ketones Negative (NEGATIVE) mg/dL Urine Occult Blood Negative (NEGATIVE) Urine Nitrite Negative (NEGATIVE) Urine Bilirubin Negative (NEGATIVE) Urine Urobilinogen Normal (NEGATIVE) mg/dL Ur Leukocyte Esterase Large H (NEGATIVE) Urine RBC 0-5 (0) Urine WBC 30-40 H (0) Ur Squamous Epith Cells Few H (NS,R,O) Urine Bacteria Moderate H (NS) Carbamazepine (4.0-12.0) ug/mL Meds: Medications Generic Name Dose Route Start Last Admin Trade Name Freq PRN Reason Stop Dose Admin Sodium Chloride 1,000 mls @ 999 mls/hr 12/09/17 17:15 Normal Saline IV ASDIRECTED RENE - Re-Assessments/Exams Free Text/Narrative Re-Assessment/Exam: 12/09/17 18:[address] without shows a new 1.1 cm hypodense L occipital lesion age indeterminate as per neuroradiologist, no visual changes, on reexamination of eyes: PERRLA, EOMI, nl vessels and disc on L, nl vessels and disc not seen on L pt continues to very vague and appears to have chronic neuro deficiencies altho is O x 3, however she has serious short and detention impaired memory, she may be postictal as one consideration pt refused IV altho has had little to drink, no urine for u/a yet BUN/creat elevated neuroradiologist recommended MRI rather than CTA, will schedule for AM pt very reluctant to be admitted altho ultimately agreed to do so may need formal neuropsych testing alk phos elevated, new, may need bone scan Departure - Departure Time of Disposition: 18:45 Disposition: Refer to Observation Condition: Good Clinical Impression: Near syncope, Confusion, Postictal state, Poor short term memory, Poor long- term memory, Acute prerenal azotemia, Moderate dehydration, Insufficient intake of food and water due to self neglect, Occipital stroke, Elevated serum alkaline phosphatase level - Discharge Information Referrals: Shantanu Gorman MD [Primary Care Provider] - Forms: ED Department Discharge - My Orders Last 24 Hours: My Active Orders 12/09/17 17:01 EKG 12 Lead [EK] Routine 12/09/17 17:02 EKG Documentation Completion [RC] ASDIRECTED Orthostatic Vital Signs [RC] ASDIRECTED Chest 2V [CR] Stat 12/09/17 17:08 Head wo Cont [CT] Stat 12/09/17 17:15 Sodium Chloride 0.9% [Normal Saline] 1,000 ml IV ASDIRECTED 12/09/17 18:30 UA W/MICROSCOPIC [URIN] Stat 12/09/17 18:35 Admission Status [Patient Status] [ADT] Routine - Assessment/Plan Last 24 Hours: My Active Orders 12/09/17 17:01 EKG 12 Lead [EK] Routine 12/09/17 17:02 EKG Documentation Completion [RC] ASDIRECTED Orthostatic Vital Signs [RC] ASDIRECTED Chest 2V [CR] Stat 12/09/17 17:08 Head wo Cont [CT] Stat 12/09/17 17:15 Sodium Chloride 0.9% [Normal Saline] 1,000 ml IV ASDIRECTED 12/09/17 18:30 UA W/MICROSCOPIC [URIN] Stat 12/09/17 18:35 Admission Status [Patient Status] [ADT] Routine
[2017-12-09] MEDS ORDERED: Sodium Chloride 0.9% 1,000 ML IV SCH ×2 (17:15→19:00)
[2017-12-09] MEDS ORDERED: Magnesium Hydroxide 400 MG/5 ML Susp 30 ML Cup PO PRN (18:58)
[2017-12-09] MEDS ORDERED: Zolpidem 5 MG Tab PO PRN (18:58)
[2017-12-09] MEDS ORDERED: Ondansetron 4 MG/2 ML SDV IV PRN (18:58)
[2017-12-09] MEDS ORDERED: Acetaminophen 325 MG Tab PO PRN (18:58)
[2017-12-09] MEDS ORDERED: Enoxaparin 40 MG/0.4 ML Syringe SUBCUT SCH (19:00)
[2017-12-09] MEDS ORDERED: cefTRIAXone 1,000 MG in Sodium Chloride 0.9% 50 ML IV SCH (19:00)
[2017-12-09] MEDS ORDERED: cefTRIAXone 1,000 MG VIAL IV SCH (20:00)
[2017-12-09] MEDS ORDERED: CARBAMAZEPINE 200 MG PO ONE (21:00)
[2017-12-10 08:01] VITALS: BP 138/82
--- NOTE | 2017-12-10 09:00 | PCM.HP ---
H&P History of Present Illness - General Date of Service: 12/10/17 Admit Problem/Dx: Admission Diagnosis/Problem Admission Diagnosis/Problem Occipital cerebral infarction Source of Information: Patient History Limitations: Reports: No Limitations - History of Present Illness Initial Comments - Free Text/Narative: 76-year-old female that was admitted because of a possible seizure or CVA. She was visiting a friend in shelter, where leaving she was noted to almost ' blackout'. She is said to have took a step back and was going to fall. No seizure was witnessed.She has a history of seizures, but has not had one for several years. She also has a history of a stroke, occipital/parietal 2 years ago,and another one this year at the beginning, but she has no resultant deficits from either events. She has hypertension and hypothyroidism previously stable. Kenzie lives alone denies when asked Pain Score (Numeric/FACES): 0 - Related Data Allergies/Adverse Reactions: Allergies Allergy/AdvReac Type Severity Reaction Status Date / Time No Known Allergies Allergy Verified 12/09/17 19:08 Home Medications: Home Meds Levothyroxine 75 mcg PO DAILY 12/09/17 [History] Lisinopril/Hydrochlorothiazide [Lisinopril-Hctz 10-12.5 mg Tab] 1 tab PO DAILY 12/09/17 [History] atorvaSTATin [Lipitor] 40 mg PO DAILY 12/09/17 [History] carBAMazepine [carBAMazepine ER] 200 mg PO Q48H 12/09/17 [History] carBAMazepine [carBAMazepine ER] 400 mg PO BEDTIME 12/09/17 [History] carBAMazepine [carBAMazepine ER] 400 mg PO Q48H 12/09/17 [History] Past Medical History HEENT History: Reports: Impaired Vision Other HEENT History: wears eyeglasses Cardiovascular History: Reports: High Cholesterol, Hypertension, Other (See Below) Other Cardiovascular History: 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 - Recreational Drug Use Recreational Drug Use: No H&P Review of Systems - Review of Systems: Review Of Systems: ROS reveals no pertinent complaints other than HPI. Exam - Exam Exam: See Below - Vital Signs Vital Signs: Last Vital Signs Temp 98.4 F 12/10/17 07:15 Pulse 65 12/10/17 07:15 Resp 18 12/10/17 07:15 BP 138/82 12/10/17 07:15 Pulse Ox 96 12/10/17 07:15 Orthostatic Blood Pressure [ 127/81 Standing] Orthostatic Blood Pressure [ 185/84 Sitting] Orthostatic Blood Pressure [ 118/80 Supine] Weight: 70.42 kg - Exam General: Alert, Oriented, 4 HEENT: PERRLA, Hearing Intact, Mucosa Moist & Hoyt, Nares Patent, Normal Nasal Septum, Posterior Pharynx Clear, Conjunctiva Clear, EOMI, EACs Clear, TMs Clear Neck: Supple, Trachea Midline, 2 Lungs: Clear to Auscultation, Normal Respiratory Effort Cardiovascular: Regular Rate, Regular Rhythm GI/Abdominal Exam: Normal Bowel Sounds, Soft, Non-Tender, No Organomegaly, No Distention, No Abnormal Bruit, No Mass, Pelvis Stable (Female) Exam: Deferred Rectal (Female) Exam: Deferred Back Exam: Normal Inspection, Full Range of Motion, NT Extremities: Normal Inspection, Normal Range of Motion, Non-Tender, No Pedal Edema, Normal Capillary Refill Skin: Warm, Dry, Intact Neurological: Cranial Nerves Intact, Reflexes Equal Bilateral Neuro Extensive - Mental Status: Alert, Oriented x3, Normal Mood/Affect, Normal Cognition Neuro Extensive - Motor, Sensory, Reflexes: CN II-XII Intact, Normal Gait, Normal Reflexes Psychiatric: Alert, Normal Affect, Normal Mood - Patient Data Lab Results Last 24 hrs: Laboratory Results - last 24 hr 12/09/17 12/09/17 12/09/17 Range/Units 17:10 17:10 17:10 WBC 5.1 (4.5-12.0) X10-3/uL RBC 4.19 (3.23-5.20) x10(6)uL Hgb 14.0 (11.5-15.5) g/dL Hct 40.2 (30.0-51.3) % MCV 95.8 (80-96) fL MCH 33.4 (27.7-33.6) pg MCHC 34.9 (32.2-35.4) g/dL RDW 12.3 (11.5-15.5) % Plt Count 203 (125-369) X10(3)uL MPV 7.1 L (7.4-10.4) fL Neut % (Auto) 70.9 (46-82) % Lymph % (Auto) 15.5 (13-37) % Benzie % (Auto) 8.3 (4-12) % Eos % (Auto) 3 (1.0-5.0) % Baso % (Auto) 2 (0-2) % Neut # (Auto) 3.6 (1.6-8.3) # Lymph # (Auto) 0.8 (0.6-5.0) # Benzie # (Auto) 0.4 (0.0-1.3) # Eos # (Auto) 0.2 (0.0-0.8) # Baso # (Auto) 0.1 (0.0-0.2) # Sodium 133 L D (135-145) mmol/L Potassium 4.2 (3.5-5.3) mmol/L Chloride 96 L D (100-110) mmol/L Carbon Dioxide 31 (21-32) mmol/L BUN 23 H D (7-18) mg/dL Creatinine 1.2 H (0.55-1.02) mg/dL Est Cr Clr Drug Dosing 34.98 mL/min Estimated GFR (MDRD) 44 L (>60) BUN/Creatinine Ratio 19.2 (9-20) Glucose 106 (80-116) mg/dL Calcium 8.9 (8.6-10.2) mg/dL Total Bilirubin 0.3 (0.1-1.3) mg/dL AST 30 H (5-25) IU/L ALT 20 (12-36) U/L Alkaline Phosphatase 129 H (56-112) IU/L Troponin I < 0.017 L (<0.017-0.056) ng/mL C-Reactive Protein < 0.2 L (0.5-0.9) mg/dL NT-Pro-B Natriuret Pep 334 (<=450) pg/mL Total Protein 7.4 (6.0-8.0) g/dL Albumin 3.9 (3.2-4.6) g/dL Globulin 3.5 g/dL Albumin/Globulin Ratio 1.1 Urine Color (YELLOW) Urine Appearance (CLEAR) Urine pH (5.0-6.5) Ur Specific [place] (1.010-1.025) Urine Protein (NEGATIVE) mg/dL Urine Glucose (UA) (NEGATIVE) mg/dL Urine Ketones (NEGATIVE) mg/dL Urine Occult Blood (NEGATIVE) Urine Nitrite (NEGATIVE) Urine Bilirubin (NEGATIVE) Urine Urobilinogen (NEGATIVE) mg/dL Ur Leukocyte Esterase (NEGATIVE) Urine RBC (0) Urine WBC (0) Ur Squamous Epith Cells (NS,R,O) Urine Bacteria (NS) Carbamazepine 11.0 (4.0-12.0) ug/mL 12/09/17 12/10/17 12/10/17 Range/Units 18:30 06:10 06:10 WBC 4.4 L (4.5-12.0) X10-3/uL RBC 3.73 (3.23-5.20) x10(6)uL Hgb 12.5 (11.5-15.5) g/dL Hct 35.6 (30.0-51.3) % MCV 95.3 (80-96) fL MCH 33.5 (27.7-33.6) pg MCHC 35.2 (32.2-35.4) g/dL RDW 12.1 (11.5-15.5) % Plt Count 160 (125-369) X10(3)uL MPV 7.0 L (7.4-10.4) fL Neut % (Auto) 68.3 (46-82) % Lymph % (Auto) 18.7 (13-37) % Benzie % (Auto) 8.2 (4-12) % Eos % (Auto) 4 (1.0-5.0) % Baso % (Auto) 1 (0-2) % Neut # (Auto) 3.0 (1.6-8.3) # Lymph # (Auto) 0.8 (0.6-5.0) # Benzie # (Auto) 0.4 (0.0-1.3) # Eos # (Auto) 0.2 (0.0-0.8) # Baso # (Auto) 0.0 (0.0-0.2) # Sodium 135 (135-145) mmol/L Potassium 4.7 (3.5-5.3) mmol/L Chloride 100 (100-110) mmol/L Carbon Dioxide 30 (21-32) mmol/L BUN 18 (7-18) mg/dL Creatinine 1.1 H (0.55-1.02) mg/dL Est Cr Clr Drug Dosing 38.16 mL/min Estimated GFR (MDRD) 48 L (>60) BUN/Creatinine Ratio 16.4 (9-20) Glucose 91 (80-116) mg/dL Calcium 8.1 L (8.6-10.2) mg/dL Total Bilirubin (0.1-1.3) mg/dL AST (5-25) IU/L ALT (12-36) U/L Alkaline Phosphatase (56-112) IU/L Troponin I (<0.017-0.056) ng/mL C-Reactive Protein (0.5-0.9) mg/dL NT-Pro-B Natriuret Pep (<=450) pg/mL Total Protein (6.0-8.0) g/dL Albumin (3.2-4.6) g/dL Globulin g/dL Albumin/Globulin Ratio Urine Color Yellow (YELLOW) Urine Appearance Clear (CLEAR) Urine pH 6.0 (5.0-6.5) Ur Specific [place] 1.015 (1.010-1.025) Urine Protein Negative (NEGATIVE) mg/dL Urine Glucose (UA) Normal (NEGATIVE) mg/dL Urine Ketones Negative (NEGATIVE) mg/dL Urine Occult Blood Negative (NEGATIVE) Urine Nitrite Negative (NEGATIVE) Urine Bilirubin Negative (NEGATIVE) Urine Urobilinogen Normal (NEGATIVE) mg/dL Ur Leukocyte Esterase Large H (NEGATIVE) Urine RBC 0-5 (0) Urine WBC 30-40 H (0) Ur Squamous Epith Cells Few H (NS,R,O) Urine Bacteria Moderate H (NS) Carbamazepine (4.0-12.0) ug/mL Result Diagrams: 12/10/17 06:10 12/10/17 06:10 EKG INTERPRETATION Rhythm: NSR - Problem List (1) Near syncope SNOMED Code(s): 390196483 ICD Code: R55 - SYNCOPE AND COLLAPSE Status: Acute Current Visit: Yes (2) H/O stroke within last year SNOMED Code(s): 173035063 ICD Code: Z86.73 - PRSNL HX OF TIA (TIA), AND CEREB INFRC W/O RESID DEFICITS Status: Chronic Current Visit: Yes (3) Seizure disorder SNOMED Code(s): 579953392 ICD Code: G40.909 - EPILEPSY, UNSP, NOT INTRACTABLE, WITHOUT STATUS EPILEPTICUS Status: Chronic Current Visit: Yes (4) HTN (hypertension) SNOMED Code(s): 79374100 ICD Code: I10 - ESSENTIAL (PRIMARY) HYPERTENSION Status: Chronic Current Visit: Yes Qualifiers: Hypertension type: essential hypertension Qualified Code(s): I10 - Essential (primary) hypertension (5) Hypothyroid SNOMED Code(s): 52563974 ICD Code: E03.9 - HYPOTHYROIDISM, UNSPECIFIED Status: Chronic Current Visit: Yes Qualifiers: Hypothyroidism type: unspecified Qualified Code(s): E03.9 - Hypothyroidism , unspecified Problem List Initiated/Reviewed/Updated: Yes Orders Last 24hrs: Active Orders 24 hr Category Date Time Status Admission Status [Patient Status] [ADT] Routine ADT 12/09/17 18:35 Active Orthostatic Vital Signs [RC] ASDIRECTED Care 12/09/17 17:02 Active Oxygen Therapy [RC] PRN Care 12/09/17 18:58 Active Vital Signs [RC] 08,12,16,20,00,04 Care 12/09/17 18:58 Active Heart Healthy Diet [DIET] Diet 12/10/17 Breakfast Active Chest 2V [CR] Stat Exams 12/09/17 17:02 Taken Head wo Cont [CT] Stat Exams 12/09/17 17:08 Taken BASIC METABOLIC PANEL,BMP [CHEM] DAILY Lab 12/11/17 19:00 Ordered BASIC METABOLIC PANEL,BMP [CHEM] DAILY Lab 12/12/17 19:00 Ordered CBC WITH AUTO DIFF [HEME] AM Lab 12/11/17 05:11 Ordered CBC WITH AUTO DIFF [HEME] AM Lab 12/12/17 05:11 Ordered CULTURE URINE [RM] Routine Lab 12/09/17 18:30 Ordered UA W/MICROSCOPIC [URIN] Stat Lab 12/09/17 18:30 Ordered Acetaminophen [Tylenol] Med 12/09/17 18:58 Active 650 mg PO Q4H PRN Enoxaparin [Lovenox] Med 12/09/17 19:00 Active 40 mg SUBCUT Q24H Magnesium Hydroxide [Milk of Magnesia] Med 12/09/17 18:58 Active 30 ml PO Q12H PRN Ondansetron [Zofran] Med 12/09/17 18:58 Active 4 mg IV Q4H PRN Sodium Chloride 0.9% [Normal Saline] 1,000 ml Med 12/09/17 19:00 Active IV ASDIRECTED Zolpidem [Ambien] Med 12/09/17 18:58 Active 5 mg PO BEDTIME PRN cefTRIAXone [Rocephin] Med 12/09/17 20:00 Active 1,000 mg IV Q24H Resuscitation Status Routine Resus Stat 12/09/17 18:58 Ordered EKG 12 Lead [EK] Routine Ther 12/09/17 17:01 Ordered Medication Orders Acetaminophen (Tylenol) 650 mg PO Q4H PRN PRN Reason: Pain (Mild 1-3)/fever Ceftriaxone Sodium (Rocephin) 1,000 mg IV Q24H [facility] Last Admin: 12/09/17 20:37 Dose: 1,000 mg Enoxaparin Sodium (Lovenox) 40 mg SUBCUT Q24H [facility] Last Admin: 12/09/17 20:37 Dose: 40 mg Sodium Chloride (Normal Saline) 1,000 mls @ 75 mls/hr IV ASDIRECTED [facility] Last Admin: 12/09/17 20:15 Dose: 75 mls/hr Magnesium Hydroxide (Milk Of Magnesia) 30 ml PO Q12H PRN PRN Reason: Constipation Ondansetron HCl (Zofran) 4 mg IV Q4H PRN PRN Reason: Nausea/Vomiting Zolpidem Tartrate (Ambien) 5 mg PO BEDTIME PRN PRN Reason: Sleep Assessment/Plan Comment:: Christian feels fine this morning. She's got fluids, her vital signs have remained stable and she has no new deficits. I feel that she is ready to go back home on a regular medications. Carbamazepine level was normal him a and she'll go home on the same dose.
--- NOTE | 2017-12-10 11:50 | CR ---
INDICATION: Near syncope. CHEST: PA and two lateral views of the chest were obtained 12/09/2017 and compared with 07/15/2017 and 05/04/2010. The heart appeared normal in size and shape with a unipolar pacemaker lead in place. It is unchanged in position. An active infiltrate or effusion was not identified. A moderate dextroconvex scoliosis of the thoracic spine is again noted. The aorta is somewhat tortuous with calcification in the arch. A compression fracture is again noted in the upper middle thoracic spine and appears unchanged from 2009. IMPRESSION: No acute process. MTDD
== END 2017-12-10 10:40 | disposition home or self-care (01) ==
LOC: FB.ED 16:27 → FB.MS 18:35
PROVIDERS: ADMIT Emergency Medicine; ATTEND Family Medicine
DX: R55 Syncope and collapse (principal); I10 Essential (primary) hypertension; E03.9 Hypothyroidism, unspecified; G40.909 Epilepsy, unspecified, not intractable, without status epilepticus; Z79.899 Other long term (current) drug therapy; Z86.73 Personal history of transient ischemic attack (TIA), and cerebral infarction without residual deficits
CPT/HCPCS: 36415; 70450; 71046; 80048; 80053; 80156; 81001; 83880; 84484; 85025; 86140; 87086; 93005; 93010; 96372; 96374; 99284; 99285; A9270; G0378; J0696; J1650; J7030

== ENCOUNTER → 2018-08-17 | Day surgery (SDC) | payer MEDICARE, OTHER ==
[~2018-08-17] MED LIST: Lidocaine 1% 20 ML MDV INJECT ONE; Midazolam 1 MG/ML 2 ML SDV IV ONE; Sodium Chloride 0.9% 10 ML Syringe FLUSH PRN
[2018-08-17 11:11] VITALS: BP 127/79
--- NOTE | 2018-08-18 08:24 | OR ---
DATE OF OPERATION: 08/17/2018 SURGEON: My Barney MD PREOPERATIVE DIAGNOSIS: Visually significant cataract, left eye. POSTOPERATIVE DIAGNOSIS: Visually significant cataract, left eye. PROCEDURES PERFORMED: Phacoemulsification with intraocular lens placement, left eye. ASSISTANTS: None. ANESTHESIA: Local with sedation. COMPLICATIONS: None. BLOOD LOSS: None. IMPLANTS: An Abe [id number] 20.5 diopter lens implanted. CDE: 7.03. DESCRIPTION OF PROCEDURE: After risks and benefits were reviewed with the patient, consent was obtained in the preoperative area, and the left eye was marked with a surgical pen. The patient received dilating drops and moxifloxacin, along with ketorolac in the preoperative area. The patient was taken to the operating room, where a time-out was performed, and the patient was placed under monitored anesthesia care. Topical tetracaine was used for anesthesia. The left eye was prepped and draped for ophthalmic surgery, and the microscope was brought into position and focussed. A paracentesis incision was made, followed by injection of preservative-free 1% lidocaine into the anterior chamber, followed by injection of Viscoat into the anterior chamber. A microkeratome blade was used to make a corneal limbal incision temporarily. A cystotome was used to make the beginning of the capsulorrhexis, which was carried around 360 degrees in a curvilinear fashion using Utrata forceps. A Milian cannula with BSS was used to hydrodissect and hydrodelineate the nucleus. The nucleus was removed in a divide and conquer manner using phacoemulsification. Irrigation and aspiration were used to remove the remaining cortical material. Provisc was used to inflate the capsular bag, and a pre-loaded Abe [id number] 20.5 diopter lens, serial number [id number] was injected into the capsular bag. A Sinskey hook was used to position and center the lens. Next, irrigation and aspiration was used to remove any remaining viscoelastic and cortical material from the anterior chamber. BSS on a cannula was used to inflate the anterior chamber and hydrate the wound. The wound was checked and found to be watertight. 1 mg of vancomycin was injected into the anterior chamber. Drapes were removed and the eye was cleaned. A drop of brimonidine 0.15% and a drop of TobraDex was placed. The eye was shielded, and the patient was taken to the recovery room in stable condition. /[id number] JOSELYN/DEVAN CC: MARCELINO Pepper MD MTDD
== END ==
LOC: FB.SDS 07:42
PROVIDERS: ATTEND Ophthalmology
DX: H25.9 Unspecified age-related cataract (principal); I10 Essential (primary) hypertension; E03.9 Hypothyroidism, unspecified; Z79.899 Other long term (current) drug therapy; Z79.82 Long term (current) use of aspirin; Z79.890 Hormone replacement therapy
CPT/HCPCS: 00142-QZ; J2001; J2250

== ENCOUNTER 2018-09-14 08:08 | Day surgery (SDC) | payer MEDICARE, OTHER ==
[2018-09-14] MEDS ORDERED: Midazolam 1 MG/ML 2 ML SDV IV ONE (08:09)
[2018-09-14] MEDS ORDERED: fentaNYL 100 MCG/2 ML SDV IV ONE (08:09)
[2018-09-14 13:55] VITALS: BP 126/76
--- NOTE | 2018-09-15 12:21 | OR ---
DATE OF OPERATION: 09/14/2018 SURGEON: My Barney MD PREOPERATIVE DIAGNOSIS: Visually significant cataract, right eye. POSTOPERATIVE DIAGNOSIS: Visually significant cataract, right eye. PROCEDURES PERFORMED: Phacoemulsification with intraocular lens placement, right eye. ASSISTANTS: None. ANESTHESIA: Local with sedation. COMPLICATIONS: None. BLOOD LOSS: None. IMPLANTS: Abe [id number], 20.5 diopter lens implanted. CDE: 4.41. DESCRIPTION OF PROCEDURE: After risks and benefits were reviewed with the patient, consent was obtained in the preoperative area, and the operative eye was marked with a surgical pen. The patient received dilating drops and moxifloxacin, along with ketorolac in the preoperative area. The patient was taken to the operating room, where a time-out was performed, and the patient was placed under monitored anesthesia care. Topical tetracaine was used for anesthesia. The operative eye was prepped and draped for ophthalmic surgery, and the microscope was brought into position and focussed. A paracentesis incision was made, followed by injection of preservative-free 1% lidocaine into the anterior chamber, followed by injection of Viscoat into the anterior chamber. A microkeratome blade was used to make a corneal limbal incision temporarily. A cystotome was used to make the beginning of the capsulorrhexis, which was carried around 360 degrees in a curvilinear fashion using Utrata forceps. A Milian cannula with BSS was used to hydrodissect and hydrodelineate the nucleus. The nucleus was removed in a divide and conquer manner using phacoemulsification. Irrigation and aspiration were used to remove the remaining cortical material. Provisc was used to inflate the capsular bag, and a pre-loaded Abe [id number], 20.5 diopter lens, serial number [id number] was injected into the capsular bag. A Sinskey hook was used to position and center the lens. Next, irrigation and aspiration was used to remove any remaining viscoelastic and cortical material from the anterior chamber. BSS on a cannula was used to inflate the anterior chamber and hydrate the wound. The wound was checked and found to be watertight. Drapes were removed and the eye was cleaned. A drop of brimonidine 0.15% and a drop of TobraDex was placed. The eye was shielded, and the patient was taken to the recovery room in stable condition. /[id number] JOSELYN/DEVAN CC: MARCELINO KING MD MTDD
== END 2018-09-14 11:25 | disposition home or self-care (01) ==
LOC: FB.SDS 08:08
PROVIDERS: ATTEND Ophthalmology
DX: H25.9 Unspecified age-related cataract (principal); I10 Essential (primary) hypertension; E03.9 Hypothyroidism, unspecified; Z86.73 Personal history of transient ischemic attack (TIA), and cerebral infarction without residual deficits; Z79.899 Other long term (current) drug therapy; Z79.890 Hormone replacement therapy
CPT/HCPCS: 00142; 66984; J2250; J3010; V2632

== ENCOUNTER 2018-12-10 11:47 | Observation (INO) | payer MEDICARE, OTHER ==
[2018-12-10] MEDS ORDERED: Sodium Chloride 0.9% 10 ML Syringe FLUSH PRN (14:19)
[2018-12-10] MEDS ORDERED: Enoxaparin 80 MG/0.8 ML Syringe SUBCUT ONE (15:25)
--- NOTE | 2018-12-10 15:33 | EDM.PDOC ---
ED HPI GENERAL MEDICAL PROBLEM - General Chief Complaint: General Stated Complaint: SENT FROM CLINIC Time Seen by Provider: 12/10/18 12:40 Source of Information: Reports: Patient, Provider History Limitations: Reports: No Limitations - History of Present Illness INITIAL COMMENTS - FREE TEXT/NARRATIVE: 77-year-old female who had onset of right-sided chest and back pain that she reports was a sharp pain on 12/05/2018. It was worse with deep breath and somewhat with movement. She rates pain as a 5/10. She has no shortness of breath. She has no nausea or vomiting. The pain has been fairly constant and just not going away. She was seen by her primary provider yesterday and her labs came back with elevated d-dimer. A CT scan of her chest was performed today which showed right lower lobe segmental and subsegmental pulmonary embolism with a right lower lobe pulmonary infarct and a small right pleural effusion. She was told by her doctor to come to the hospital for further evaluation. She has no shortness of breath with activity. She noticed no leg swelling or pain. She has had no hemoptysis. There was no antecedent cough, fever or nasal congestion. There are no other associated signs or symptoms. There are no other modifying factors. 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: Other (see below) (Nothing) - Related Data Allergies Allergy/AdvReac Type Severity Reaction Status Date / Time No Known Allergies Allergy Verified 12/10/18 09:40 Home Meds: Home Meds Levothyroxine 75 mcg PO DAILY 12/09/17 [History] Lisinopril/Hydrochlorothiazide [Lisinopril-Hctz 10-12.5 mg Tab] 1 tab PO DAILY 12/09/17 [History] Aspirin 81 mg PO BEDTIME 08/16/18 [History] Simvastatin 20 mg PO DAILY 12/10/18 [History] carBAMazepine [Carbamazepine ER] 100 mg PO BID 12/10/18 [History] Past Medical History HEENT History: Reports: Cataract, Impaired Vision Other HEENT History: BILATERAL CATARACT, POSTERIOR AVIETREUOUS DETACHMENT: SIDE? 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 it was removed, can still feel it Musculoskeletal History: Reports: Other (See Below) Other Musculoskeletal History: chronic joint/shoulder pain Neurological History: Reports: CVA, Seizure Other Neuro History: HX HEAT STROKE, APHASIA R/T CVA Endocrine/Metabolic History: Reports: Hypothyroidism - Infectious Disease History Infectious Disease History: Reports: Chicken Pox, Measles, Mumps - Past Surgical History HEENT Surgical History: Reports: Cataract Surgery Social & Family History - Tobacco Use Smoking Status *Q: Never Smoker - Caffeine Use Caffeine Use: Reports: Coffee Caffeine Use Comment: 1 can per day. - Alcohol Use Alcohol Use History: No - Recreational Drug Use Recreational Drug Use: No - Living Situation & Occupation Occupation: Retired Social History Comment: Lives alone. ED ROS GENERAL - Review of Systems Review Of Systems: See Below Constitutional: Reports: No Symptoms HEENT: Reports: No Symptoms Respiratory: Reports: Pleuritic Chest Pain. Denies: Shortness of Breath, Hemoptysis Cardiovascular: Reports: Chest Pain (Right-sided) Endocrine: Reports: No Symptoms GI/Abdominal: Reports: No Symptoms : Reports: No Symptoms Musculoskeletal: Reports: No Symptoms Skin: Reports: No Symptoms Neurological: Reports: No Symptoms Hematologic/Lymphatic: Reports: No Symptoms Immunologic: Reports: No Symptoms ED EXAM, GENERAL - Physical Exam Exam: See Below Exam Limited By: No Limitations General Appearance: Alert, WD/WN, No Apparent Distress Eye Exam: Bilateral Eye: EOMI, Normal Inspection Throat/Mouth: Normal Inspection, Normal Lips, Normal Oropharynx, No Airway Compromise Head: Atraumatic, Normocephalic Neck: Normal Inspection, Supple, Non-Tender, Full Range of Motion Respiratory/Chest: No Respiratory Distress, Lungs Clear, Normal Breath Sounds, No Accessory Muscle Use, Chest Non-Tender Cardiovascular: Normal Peripheral Pulses, Regular Rate, Rhythm, No JVD, No Rub Peripheral Pulses: 2+: Radial (L), Radial (R), Dorsalis Pedis (L), Dorsalis Pedis (R) GI/Abdominal: Normal Bowel Sounds, Soft, Non-Tender, No Mass, Pelvis Stable Back Exam: Normal Inspection Extremities: Normal Inspection, Normal Range of Motion, Normal Capillary Refill Neurological: Alert, Oriented, CN II-XII Intact, No Motor/Sensory Deficits Psychiatric: Normal Affect, Normal Mood Skin Exam: Warm, Dry, Intact, Normal Color, No Rash EKG INTERPRETATION EKG Date: 12/10/18 Time: 13:36 Rhythm: NSR Rate (Beats/Min): 64 Juliette: Normal P-Wave: Present QRS: Other (Inferior Q's suggesting old inferior IL.) ST-T: Normal QT: Normal Comparison: No Change (From EKG performed on 12/09/2017.) Course - Vital Signs Last Recorded V/S: Last Vital Signs Temp 36.8 C 12/10/18 14:02 Pulse 72 12/10/18 14:02 Resp 18 12/10/18 14:02 BP 107/64 12/10/18 14:02 Pulse Ox 99 12/10/18 14:02 - Orders/Labs/Meds Orders: Active Orders 24 hr Category Date Time Status EKG Documentation Completion [RC] ASDIRECTED Care 12/10/18 13:05 Active Weight [Height and Weight] [RC] ASDIRECTED Care 12/10/18 14:19 Active Enoxaparin [Lovenox] Med 12/10/18 15:25 Once 70 mg SUBCUT ONETIME ONE Sodium Chloride 0.9% [Saline Flush] Med 12/10/18 14:19 Active 10 ml FLUSH ASDIRECTED PRN Saline Lock Insert [OM.PC] Routine Oth 12/10/18 14:19 Ordered EKG 12 Lead [EK] Routine Ther 12/10/18 13:05 Ordered Medication Orders Enoxaparin Sodium (Lovenox) 70 mg SUBCUT ONETIME ONE Stop: 12/10/18 15:26 Sodium Chloride (Saline Flush) 10 ml FLUSH ASDIRECTED PRN PRN Reason: Keep Vein Open Labs: Laboratory Tests 12/10/18 Range/Units 09:28 Troponin I < 0.017 L (<0.017-0.056) ng/mL Meds: Medications Generic Name Dose Route Start Last Admin Trade Name Freq PRN Reason Stop Dose Admin Enoxaparin Sodium 70 mg 12/10/18 15:25 Lovenox SUBCUT 12/10/18 15:26 ONETIME ONE Sodium Chloride 10 ml 12/10/18 14:19 Saline Flush FLUSH ASDIRECTED PRN Keep Vein Open - Re-Assessments/Exams Free Text/Narrative Re-Assessment/Exam: 12/10/18 15:15: Patient with right-sided pulmonary embolus with associated pulmonary infarction. She is vitally stable. I discussed the patient's case with the [place] emergency department doctor and his recommendation was that the patient be admitted. He did not feel the patient would be acceptable for outpatient management. Therefore, I discussed this with the patient and she is agreeable to admission. I discussed this with Dr. Thayer and he will admit the patient this hospital. The patient will be treated with Lovenox one milligram per kilogram subcutaneous twice daily at this point. She is on carbamazepine and there is an interaction with Xarelto that would reduce Xarelto's effectiveness. Departure - Departure Time of Disposition: 15:30 Disposition: Admitted As Inpatient 67 Condition: Fair Clinical Impression: PE, Pulmonary embolism - Discharge Information Referrals: Shantanu Gorman MD [Primary Care Provider] - - My Orders Last 24 Hours: My Active Orders 12/10/18 13:05 EKG Documentation Completion [RC] ASDIRECTED EKG 12 Lead [EK] Routine 12/10/18 14:19 Weight [Height and Weight] [RC] ASDIRECTED Sodium Chloride 0.9% [Saline Flush] 10 ml FLUSH ASDIRECTED PRN Saline Lock Insert [OM.PC] Routine 12/10/18 15:25 Enoxaparin [Lovenox] 70 mg SUBCUT ONETIME ONE - Assessment/Plan Last 24 Hours: My Active Orders 12/10/18 13:05 EKG Documentation Completion [RC] ASDIRECTED EKG 12 Lead [EK] Routine 12/10/18 14:19 Weight [Height and Weight] [RC] ASDIRECTED Sodium Chloride 0.9% [Saline Flush] 10 ml FLUSH ASDIRECTED PRN Saline Lock Insert [OM.PC] Routine 12/10/18 15:25 Enoxaparin [Lovenox] 70 mg SUBCUT ONETIME ONE
[2018-12-10] MEDS ORDERED: Warfarin 5 MG Tab PO ONE (17:21)
--- NOTE | 2018-12-10 17:28 | PCM.HP ---
H&P History of Present Illness - General Date of Service: 12/10/18 Admit Problem/Dx: Admission Diagnosis/Problem Admission Diagnosis/Problem Pulmonary embolism with infarction Source of Information: Patient History Limitations: Reports: No Limitations - History of Present Illness Initial Comments - Free Text/Narative: This is a 77-year-old female patient from having a right thoracic pain both anterior and posterior for about 21 days. It got worse so she saw Dr. Gorman after she was driving her car. He did a CAT scan today showed a PE a pulmonary infarct. Patient denies any shortness of breath, wheezing, coughing, leg swelling, recent travel or surgeries. She has no family or personal history of blood clots - Related Data Allergies/Adverse Reactions: Allergies Allergy/AdvReac Type Severity Reaction Status Date / Time No Known Allergies Allergy Verified 12/10/18 09:40 Home Medications: Home Meds Levothyroxine 75 mcg PO DAILY 12/09/17 [History] Lisinopril/Hydrochlorothiazide [Lisinopril-Hctz 10-12.5 mg Tab] 1 tab PO DAILY 12/09/17 [History] Aspirin 81 mg PO BEDTIME 08/16/18 [History] Simvastatin 20 mg PO DAILY 12/10/18 [History] carBAMazepine [Carbamazepine ER] 100 mg PO BID 12/10/18 [History] Past Medical History HEENT History: Reports: Cataract, Impaired Vision Other HEENT History: BILATERAL CATARACT, POSTERIOR AVIETREUOUS DETACHMENT: SIDE? 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 Musculoskeletal History: Reports: Other (See Below) Other Musculoskeletal History: chronic joint/shoulder pain Neurological History: Reports: CVA, Seizure Other Neuro History: HX HEAT STROKE, APHASIA R/T CVA Endocrine/Metabolic History: Reports: Hypothyroidism Hematologic History: Reports: None Immunologic History: Reports: None Oncologic (Cancer) History: Reports: None - Infectious Disease History Infectious Disease History: Reports: Chicken Pox, Measles, Mumps - Past Surgical History HEENT Surgical History: Reports: Cataract Surgery Social & Family History - Family History Family Medical History: Noncontributory - Tobacco Use Smoking Status *Q: Never Smoker Second Hand Smoke Exposure: No - Caffeine Use Caffeine Use: Reports: None Caffeine Use Comment: 1 can per day. - Recreational Drug Use Recreational Drug Use: No - Living Situation & Occupation Occupation: Retired H&P Review of Systems - Review of Systems: Review Of Systems: See Below General: Reports: No Symptoms HEENT: Reports: No Symptoms Pulmonary: Reports: No Symptoms Cardiovascular: Reports: Chest Pain Gastrointestinal: Reports: No Symptoms Genitourinary: Reports: No Symptoms Musculoskeletal: Reports: No Symptoms Skin: Reports: No Symptoms Psychiatric: Reports: No Symptoms Neurological: Reports: No Symptoms Hematologic/Lymphatic: Reports: No Symptoms Immunologic: Reports: No Symptoms Exam - Exam Exam: See Below - Vital Signs Vital Signs: Last Vital Signs Temp 98.0 F 12/10/18 16:38 Pulse 81 12/10/18 16:38 Resp 18 12/10/18 16:38 BP 125/68 12/10/18 16:38 Pulse Ox 100 12/10/18 16:38 Weight: 146 lb 8 oz - Exam General: Alert HEENT: EACs Clear, EOMI, Hearing Intact, Mucosa Moist & [place], Posterior Pharynx Clear, TMs Clear Neck: Supple, Trachea Midline. No: Lymphadenopathy Lungs: Normal Respiratory Effort, Other (Lungs sounds clear bilaterally. The left side is louder than the right) Cardiovascular: Regular Rate, Regular Rhythm. No: Systolic Murmur GI/Abdominal Exam: Normal Bowel Sounds, Soft, Non-Tender, No Organomegaly, No Distention, No Abnormal Bruit, No Mass Back Exam: Normal Inspection, Full Range of Motion Extremities: Normal Inspection, Non-Tender, No Pedal Edema Neurological: Normal Speech, Normal Tone Neuro Extensive - Mental Status: Alert, Oriented x3, Normal Mood/Affect, Normal Cognition Psychiatric: Alert, Normal Affect, Normal Mood - Patient Data Lab Results Last 24 hrs: Laboratory Results - last 24 hr 12/10/18 Range/Units 09:28 Troponin I < 0.017 L (<0.017-0.056) ng/mL - Problem List (1) Pulmonary infarct SNOMED Code(s): 67107005 ICD Code: I26.99 - OTHER PULMONARY EMBOLISM WITHOUT ACUTE COR PULMONALE Status: Acute Current Visit: Yes (2) Palliative care status SNOMED Code(s): 260694295 ICD Code: Z51.5 - ENCOUNTER FOR PALLIATIVE CARE Status: Acute Current Visit: Yes (3) PE, Pulmonary embolism SNOMED Code(s): 66974280 ICD Code: I26.99 - OTHER PULMONARY EMBOLISM WITHOUT ACUTE COR PULMONALE Status: Acute Current Visit: Yes Problem List Initiated/Reviewed/Updated: Yes Orders Last 24hrs: Active Orders 24 hr Category Date Time Status Admission Status [Patient Status] [ADT] Routine ADT 12/10/18 15:50 Active Cardiac Monitoring [RC] .As Directed Care 12/10/18 15:50 Active EKG Documentation Completion [RC] ASDIRECTED Care 12/10/18 13:05 Active Up ad Crystal [RC] ASDIRECTED Care 12/10/18 17:21 Ordered Vital Signs [RC] Q4H Care 12/10/18 17:24 Ordered Weight [Height and Weight] [RC] ASDIRECTED Care 12/10/18 14:19 Active Regular Diet [DIET] Diet 12/11/18 Breakfast Ordered CBC WITH AUTO DIFF [HEME] Routine Lab 12/10/18 17:23 Ordered COMPREHENSIVE METABOLIC PN,CMP [CHEM] Routine Lab 12/10/18 17:22 Ordered INR,PT,PROTHROMBIN TIME [COAG] DAILY Lab 12/10/18 17:30 Ordered INR,PT,PROTHROMBIN TIME [COAG] DAILY Lab 12/11/18 17:30 Ordered INR,PT,PROTHROMBIN TIME [COAG] DAILY Lab 12/12/18 17:30 Ordered INR,PT,PROTHROMBIN TIME [COAG] DAILY Lab 12/13/18 17:30 Ordered INR,PT,PROTHROMBIN TIME [COAG] DAILY Lab 12/14/18 17:30 Ordered Hydrochlorothiazide/Lisinopril [Lisinopril/HCTZ 10-12.5 Med 12/11/18 09:00 Ordered MG] 1 tab PO DAILY Levothyroxine Med 12/11/18 09:00 Ordered 75 mcg PO DAILY Simvastatin [Zocor] Med 12/11/18 09:00 Ordered 20 mg PO DAILY Sodium Chloride 0.9% [Saline Flush] Med 12/10/18 14:19 Active 10 ml FLUSH ASDIRECTED PRN Warfarin [Coumadin] Med 12/10/18 17:21 Once 5 mg PO ONETIME ONE carBAMazepine [Carbamazepine ER] Med 12/10/18 21:00 Ordered 100 mg PO BID Saline Lock Insert [OM.PC] Routine Oth 12/10/18 14:19 Ordered EKG 12 Lead [EK] Routine Ther 12/10/18 13:05 Ordered Medication Orders Lisinopril/HCTZ (Lisinopril/Hctz 10-12.5 Mg) 1 tab PO DAILY RENE Levothyroxine Sodium (Levothyroxine) 75 mcg PO DAILY RENE Non-Formulary Medication (Carbamazepine [Carbamazepine Er]) 100 mg PO BID RENE Simvastatin (Zocor) 20 mg PO DAILY RENE Sodium Chloride (Saline Flush) 10 ml FLUSH ASDIRECTED PRN PRN Reason: Keep Vein Open Warfarin Sodium (Coumadin) 5 mg PO ONETIME ONE Stop: 12/10/18 17:22 Assessment/Plan Comment:: 1. Admit for observation. 2. The patient wants to be a full code. 3. Vidhi has interaction with her antiseizure medicine so she'll be on Lovenox 1 mg/kg twice a day subcutaneous. 4. Start Coumadin 5 mg a day and daily INRs. 5. Regular diet 6. Up ad crystal. 7. CBC, Chem-12 8. Continue regular medicines and hold aspirin.
[2018-12-10] MEDS ORDERED: Acetaminophen 325 MG Tab PO PRN (22:15)
[2018-12-11] MEDS ORDERED: Levothyroxine 75 MCG Tab***OWN MED PO SCH (06:00)
[2018-12-11 08:48] VITALS: BP 124/62
[2018-12-11] MEDS ORDERED: SIMVASTATIN 20 MG PO SCH (09:00)
[2018-12-11] MEDS ORDERED: Levothyroxine 75 MCG Tab PO SCH (09:00)
[2018-12-11] MEDS ORDERED: Enoxaparin 80 MG/0.8 ML Syringe SUBCUT SCH (09:00)
[2018-12-11] MEDS ORDERED: LISINOPRIL PO SCH (09:00)
[2018-12-11] MEDS ORDERED: HYDROCHLOROTHIAZIDE PO SCH (09:00)
--- NOTE | 2018-12-11 09:36 | PCM.PN ---
- General Info Date of Service: 12/11/18 Admission Dx/Problem (Free Text): Patient says she is doing well. She denies any shortness of breath, wheezing or cough. The pain in her right chest is almost gone now. - Patient Data Vitals - Most Recent: Last Vital Signs Temp 98.1 F 12/11/18 04:56 Pulse 68 12/11/18 04:56 Resp 18 12/11/18 04:56 BP 124/62 12/11/18 08:46 Pulse Ox 97 12/11/18 04:56 Weight - Most Recent: 146 lb 8 oz Lab Results Last 24 Hours: Laboratory Results - last 24 hr 12/10/18 12/10/18 12/10/18 Range/Units 09:28 17:34 17:34 WBC 6.4 (4.5-12.0) X10-3/uL RBC 3.46 (3.23-5.20) x10(6)uL Hgb 11.6 (11.5-15.5) g/dL Hct 33.3 (30.0-51.3) % MCV 96.1 H (80-96) fL MCH 33.6 (27.7-33.6) pg MCHC 34.9 (32.2-35.4) g/dL RDW 12.0 (11.5-15.5) % Plt Count 210 (125-369) X10(3)uL MPV 7.2 L (7.4-10.4) fL Neut % (Auto) 77.6 (46-82) % Lymph % (Auto) 9.7 L (13-37) % [place] % (Auto) 9.0 (4-12) % Eos % (Auto) 3 (1.0-5.0) % Baso % (Auto) 0 (0-2) % Neut # (Auto) 5.0 (1.6-8.3) # Lymph # (Auto) 0.6 (0.6-5.0) # [place] # (Auto) 0.6 (0.0-1.3) # Eos # (Auto) 0.2 (0.0-0.8) # Baso # (Auto) 0.0 (0.0-0.2) # PT (8.7-11.1) INR (0.89-1.13) Sodium 143 (135-145) mmol/L Potassium 3.7 D (3.5-5.3) mmol/L Chloride 105 D (100-110) mmol/L Carbon Dioxide 30 (21-32) mmol/L BUN 36 H D (7-18) mg/dL Creatinine 1.5 H (0.55-1.02) mg/dL Est Cr Clr Drug Dosing 24.08 mL/min Estimated GFR (MDRD) 34 L (>60) BUN/Creatinine Ratio 24.0 H (9-20) Glucose 111 (80-116) mg/dL Calcium 8.7 (8.6-10.2) mg/dL Total Bilirubin 0.4 (0.1-1.3) mg/dL AST 42 H D (5-25) IU/L ALT 21 (12-36) U/L Alkaline Phosphatase 96 (56-112) IU/L Troponin I < 0.017 L (<0.017-0.056) ng/mL Total Protein 6.7 (6.0-8.0) g/dL Albumin 2.9 L (3.2-4.6) g/dL Globulin 3.8 g/dL Albumin/Globulin Ratio 0.8 12/10/08 12/ Range/Units 17:34 06:15 WBC (4.5-12.0) X10-3/uL RBC (3.23-5.20) x10(6)uL Hgb (11.5-15.5) g/dL Hct (30.0-51.3) % MCV (80-96) fL MCH (27.7-33.6) pg MCHC (32.2-35.4) g/dL RDW (11.5-15.5) % Plt Count (125-369) X10(3)uL MPV (7.4-10.4) fL Neut % (Auto) (46-82) % Lymph % (Auto) (13-37) % [place] % (Auto) (4-12) % Eos % (Auto) (1.0-5.0) % Baso % (Auto) (0-2) % Neut # (Auto) (1.6-8.3) # Lymph # (Auto) (0.6-5.0) # [place] # (Auto) (0.0-1.3) # Eos # (Auto) (0.0-0.8) # Baso # (Auto) (0.0-0.2) # PT 10.3 10.2 (8.7-11.1) INR 1.06 1.05 (0.89-1.13) Sodium (135-145) mmol/L Potassium (3.5-5.3) mmol/L Chloride (100-110) mmol/L Carbon Dioxide (21-32) mmol/L BUN (7-18) mg/dL Creatinine (0.55-1.02) mg/dL Est Cr Clr Drug Dosing mL/min Estimated GFR (MDRD) (>60) BUN/Creatinine Ratio (9-20) Glucose (80-116) mg/dL Calcium (8.6-10.2) mg/dL Total Bilirubin (0.1-1.3) mg/dL AST (5-25) IU/L ALT (12-36) U/L Alkaline Phosphatase (56-112) IU/L Troponin I (<0.017-0.056) ng/mL Total Protein (6.0-8.0) g/dL Albumin (3.2-4.6) g/dL Globulin g/dL Albumin/Globulin Ratio Med Orders - Current: Current Medications Acetaminophen (Tylenol) 650 mg PO Q4H PRN PRN Reason: Pain Enoxaparin Sodium (Lovenox) 70 mg SUBCUT BID [facility] Last Admin: 12/11/18 08:46 Dose: 70 mg Lisinopril/HCTZ (Lisinopril/Hctz 10-12.5 Mg) 1 tab PO DAILY [facility] Last Admin: 12/11/18 08:46 Dose: 1 tab Levothyroxine Sodium (Levothyroxine) 75 mcg PO 0600 [facility] Last Admin: 12/11/18 06:24 Dose: 75 mcg [Carbamazepine Er] (100 Mg)Own Med) 100 mg PO BID [facility] Last Admin: 12/11/18 08:46 Dose: 100 mg Simvastatin (Zocor) 20 mg PO DAILY [facility] Last Admin: 12/11/18 08:47 Dose: 20 mg Sodium Chloride (Saline Flush) 10 ml FLUSH ASDIRECTED PRN PRN Reason: Keep Vein Open Discontinued Medications Enoxaparin Sodium (Lovenox) 70 mg SUBCUT ONETIME ONE Stop: 12/10/18 15:26 Last Admin: 12/10/18 17:03 Dose: 70 mg Levothyroxine Sodium (Levothyroxine) 75 mcg PO DAILY RENE Warfarin Sodium (Coumadin) 5 mg PO ONETIME ONE Stop: 12/10/18 17:22 Last Admin: 12/10/18 19:00 Dose: 5 mg - Exam General: Alert, Oriented, Cooperative Lungs: Normal Respiratory Effort, Decreased Breath Sounds (Right compared to left. Both lungs are clear.) Cardiovascular: Regular Rate, Regular Rhythm, No Murmurs. No: Bradycardia, Tachycardia Extremities: Normal Inspection, No Pedal Edema - Problem List & Annotations (1) Pulmonary infarct SNOMED Code(s): 95905796 Code(s): I26.99 - OTHER PULMONARY EMBOLISM WITHOUT ACUTE COR PULMONALE Status: Acute Current Visit: Yes (2) Palliative care status SNOMED Code(s): 278117864 Code(s): Z51.5 - ENCOUNTER FOR PALLIATIVE CARE Status: Acute Current Visit: Yes (3) PE, Pulmonary embolism SNOMED Code(s): 22871564 Code(s): I26.99 - OTHER PULMONARY EMBOLISM WITHOUT ACUTE COR PULMONALE Status: Acute Current Visit: Yes - Problem List Review Problem List Initiated/Reviewed/Updated: Yes - My Orders Last 24 Hours: My Active Orders 12/10/18 17:21 Up ad Crystal [RC] ASDIRECTED 12/10/18 17:24 Vital Signs [RC] Q4H 12/10/18 21:00 carBAMazepine [Carbamazepine ER] 100 mg PO BID 12/10/18 22:15 Acetaminophen [Tylenol] 650 mg PO Q4H PRN 12/11/18 00:16 Code Status [Resuscitation Status] Routine 12/11/18 06:00 Levothyroxine 75 mcg PO 0600 12/11/18 09:00 Enoxaparin [Lovenox] 70 mg SUBCUT BID Hydrochlorothiazide/Lisinopril [Lisinopril/HCTZ 10-12.5 MG] 1 tab PO DAILY Simvastatin [Zocor] 20 mg PO DAILY 12/11/18 Breakfast Regular Diet [DIET] 12/12/18 17:30 INR,PT,PROTHROMBIN TIME [COAG] DAILY 12/13/18 17:30 INR,PT,PROTHROMBIN TIME [COAG] DAILY 12/14/18 17:30 INR,PT,PROTHROMBIN TIME [COAG] DAILY - Plan Plan:: 1. Continue Lovenox and Coumadin. 2. Teach patient how to give Lovenox shots. 3. If the patient can give her some Lovenox shots. Consider discharge later today. Patient has had these symptoms for 3 weeks and she is hemodynamically stable. According to up-to-date most sequelae from PE happens within the first week.
--- NOTE | 2018-12-11 11:17 | PCM.DCSUM1 ---
Discharge Summary - Hospital Course Free Text/Narrative:: Hospital course-patient was monitored overnight and her vital signs are stable afebrile and oxygen was in the high 90s. She was started on Lovenox 70 units twice a day with Coumadin 5 mg a day. For his INR of course was within normal limits. Her pain in her right thorax stopped after the first night. Patient was educated on how to give Lovenox shots that she was able to do. Pharmacy suggested we give her 2 units of Lovenox once a day because of her creatinine clearance that was changed. We'll discharge the patient home on Lovenox 60 units a day with Coumadin 5 mg a day. I discussed home health and she defers. She'll follow-up with her primary care physician in 3 days with a INR. Brief History: This is a 77-year-old female patient from having a right thoracic pain both anterior and posterior for about 21 days. It got worse so she saw Dr. Gorman after she was driving her car. He did a CAT scan today showed a PE a pulmonary infarct. Patient denies any shortness of breath, wheezing, coughing, leg swelling, recent travel or surgeries. She has no family or personal history of blood clots Diagnosis: Stroke: No - Discharge Data Discharge Date: 12/11/18 Discharge Disposition: Home, Self-Care 01 Condition: Stable - Discharge Diagnosis/Problem(s) (1) Pulmonary infarct SNOMED Code(s): 98189282 ICD Code: I26.99 - OTHER PULMONARY EMBOLISM WITHOUT ACUTE COR PULMONALE Status: Acute Current Visit: Yes (2) Palliative care status SNOMED Code(s): 589441399 ICD Code: Z51.5 - ENCOUNTER FOR PALLIATIVE CARE Status: Acute Current Visit: Yes (3) PE, Pulmonary embolism SNOMED Code(s): 80547403 ICD Code: I26.99 - OTHER PULMONARY EMBOLISM WITHOUT ACUTE COR PULMONALE Status: Acute Current Visit: Yes - Patient Instructions Diet, Other: Low leaned vegetable Activity: As Tolerated Driving: May Drive Today Showering/Bathing: May Shower Other/Special Instructions: 1. Recheck with Dr. Gorman in 3 days with an INR. - Discharge Plan Prescriptions/Med Rec: Enoxaparin [Lovenox] 60 mg SUBCUT DAILY #5 syringe Warfarin [Coumadin] 5 mg PO DAILY #30 tab Home Medications: Home Meds Levothyroxine 75 mcg PO DAILY 12/09/17 [History] Lisinopril/Hydrochlorothiazide [Lisinopril-Hctz 10-12.5 mg Tab] 1 tab PO DAILY 12/09/17 [History] Aspirin 81 mg PO BEDTIME 08/16/18 [History] Simvastatin 20 mg PO DAILY 12/10/18 [History] carBAMazepine [Carbamazepine ER] 100 mg PO BID 12/10/18 [History] Enoxaparin [Lovenox] 60 mg SUBCUT DAILY #5 syringe 12/11/18 [Rx] Warfarin [Coumadin] 5 mg PO DAILY #30 tab 12/11/18 [Rx] Forms: ED Department Discharge Referrals: Shantanu Gorman MD [Primary Care Provider] - - Discharge Summary/Plan Comment DC Time >30 min.: No - Patient Data Vitals - Most Recent: Last Vital Signs Temp 98.1 F 12/11/18 04:56 Pulse 68 12/11/18 04:56 Resp 18 12/11/18 04:56 BP 124/62 12/11/18 08:46 Pulse Ox 97 12/11/18 04:56 Weight - Most Recent: 146 lb 8 oz Lab Results - Last 24 hrs: Laboratory Results - last 24 hr 12/10/18 12/10/18 12/10/18 Range/Units 09:28 17:34 17:34 WBC 6.4 (4.5-12.0) X10-3/uL RBC 3.46 (3.23-5.20) x10(6)uL Hgb 11.6 (11.5-15.5) g/dL Hct 33.3 (30.0-51.3) % MCV 96.1 H (80-96) fL MCH 33.6 (27.7-33.6) pg MCHC 34.9 (32.2-35.4) g/dL RDW 12.0 (11.5-15.5) % Plt Count 210 (125-369) X10(3)uL MPV 7.2 L (7.4-10.4) fL Neut % (Auto) 77.6 (46-82) % Lymph % (Auto) 9.7 L (13-37) % Webb % (Auto) 9.0 (4-12) % Eos % (Auto) 3 (1.0-5.0) % Baso % (Auto) 0 (0-2) % Neut # (Auto) 5.0 (1.6-8.3) # Lymph # (Auto) 0.6 (0.6-5.0) # Webb # (Auto) 0.6 (0.0-1.3) # Eos # (Auto) 0.2 (0.0-0.8) # Baso # (Auto) 0.0 (0.0-0.2) # PT (8.7-11.1) INR (0.89-1.13) Sodium 143 (135-145) mmol/L Potassium 3.7 D (3.5-5.3) mmol/L Chloride 105 D (100-110) mmol/L Carbon Dioxide 30 (21-32) mmol/L BUN 36 H D (7-18) mg/dL Creatinine 1.5 H (0.55-1.02) mg/dL Est Cr Clr Drug Dosing 24.08 mL/min Estimated GFR (MDRD) 34 L (>60) BUN/Creatinine Ratio 24.0 H (9-20) Glucose 111 (80-116) mg/dL Calcium 8.7 (8.6-10.2) mg/dL Total Bilirubin 0.4 (0.1-1.3) mg/dL AST 42 H D (5-25) IU/L ALT 21 (12-36) U/L Alkaline Phosphatase 96 (56-112) IU/L Troponin I < 0.017 L (<0.017-0.056) ng/mL Total Protein 6.7 (6.0-8.0) g/dL Albumin 2.9 L (3.2-4.6) g/dL Globulin 3.8 g/dL Albumin/Globulin Ratio 0.8 12/10/18 12/11/18 Range/Units 17:34 06:15 WBC (4.5-12.0) X10-3/uL RBC (3.23-5.20) x10(6)uL Hgb (11.5-15.5) g/dL Hct (30.0-51.3) % MCV (80-96) fL MCH (27.7-33.6) pg MCHC (32.2-35.4) g/dL RDW (11.5-15.5) % Plt Count (125-369) X10(3)uL MPV (7.4-10.4) fL Neut % (Auto) (46-82) % Lymph % (Auto) (13-37) % [place] % (Auto) (4-12) % Eos % (Auto) (1.0-5.0) % Baso % (Auto) (0-2) % Neut # (Auto) (1.6-8.3) # Lymph # (Auto) (0.6-5.0) # Webb # (Auto) (0.0-1.3) # Eos # (Auto) (0.0-0.8) # Baso # (Auto) (0.0-0.2) # PT 10.3 10.2 (8.7-11.1) INR 1.06 1.05 (0.89-1.13) Sodium (135-145) mmol/L Potassium (3.5-5.3) mmol/L Chloride (100-110) mmol/L Carbon Dioxide (21-32) mmol/L BUN (7-18) mg/dL Creatinine (0.55-1.02) mg/dL Est Cr Clr Drug Dosing mL/min Estimated GFR (MDRD) (>60) BUN/Creatinine Ratio (9-20) Glucose (80-116) mg/dL Calcium (8.6-10.2) mg/dL Total Bilirubin (0.1-1.3) mg/dL AST (5-25) IU/L ALT (12-36) U/L Alkaline Phosphatase (56-112) IU/L Troponin I (<0.017-0.056) ng/mL Total Protein (6.0-8.0) g/dL Albumin (3.2-4.6) g/dL Globulin g/dL Albumin/Globulin Ratio Med Orders - Current: Current Medications Acetaminophen (Tylenol) 650 mg PO Q4H PRN PRN Reason: Pain Enoxaparin Sodium (Lovenox) 70 mg SUBCUT BID [facility] Last Admin: 12/11/18 08:46 Dose: 70 mg Lisinopril/HCTZ (Lisinopril/Hctz 10-12.5 Mg) 1 tab PO DAILY [facility] Last Admin: 12/11/18 08:46 Dose: 1 tab Levothyroxine Sodium (Levothyroxine) 75 mcg PO 0600 [facility] Last Admin: 12/11/18 06:24 Dose: 75 mcg [Carbamazepine Er] (100 Mg)Own Med) 100 mg PO BID [facility] Last Admin: 12/11/18 08:46 Dose: 100 mg Simvastatin (Zocor) 20 mg PO DAILY [facility] Last Admin: 12/11/18 08:47 Dose: 20 mg Sodium Chloride (Saline Flush) 10 ml FLUSH ASDIRECTED PRN PRN Reason: Keep Vein Open Discontinued Medications Enoxaparin Sodium (Lovenox) 70 mg SUBCUT ONETIME ONE Stop: 12/10/18 15:26 Last Admin: 12/10/18 17:03 Dose: 70 mg Levothyroxine Sodium (Levothyroxine) 75 mcg PO DAILY [facility] Warfarin Sodium (Coumadin) 5 mg PO ONETIME ONE Stop: 12/10/18 17:22 Last Admin: 12/10/18 19:00 Dose: 5 mg
== END 2018-12-11 13:00 | disposition home or self-care (01) ==
LOC: FB.ED 11:47 → FB.MS 15:50
PROVIDERS: ADMIT Family Medicine; ATTEND Family Medicine
DX: I26.99 Other pulmonary embolism without acute cor pulmonale (principal); I10 Essential (primary) hypertension; E78.00 Pure hypercholesterolemia, unspecified; E03.9 Hypothyroidism, unspecified; Z86.73 Personal history of transient ischemic attack (TIA), and cerebral infarction without residual deficits; Z79.82 Long term (current) use of aspirin; Z79.01 Long term (current) use of anticoagulants; Z79.899 Other long term (current) drug therapy; Z95.0 Presence of cardiac pacemaker
CPT/HCPCS: 36415; 80053; 84484; 85025; 85610; 93005; 96372; 99283; A9270-GY; G0378; J1650

== ENCOUNTER 2020-01-17 18:38 | Emergency (ER) | payer MEDICARE, OTHER, MEDICAID ==
[2020-01-17] MEDS ORDERED: Sodium Chloride 0.9% 10 ML Syringe FLUSH PRN (18:50)
--- NOTE | 2020-01-17 19:43 | CT ---
INDICATION: Slurred speech. Confusion. History of CVA. CT HEAD WITHOUT CONTRAST: Spiral 3.75 mm axial sections were obtained through the brain without contrast with sagittal and coronal reconstructions and axial reconstructions 01/17/20 and compared with 12/09/17 and 07/14/17. Total exam DLP was 1373.85 mGy-cm. There are again noted calcifications in the internal carotid arteries. Areas encephalomalacia are noted in the left occipital and temporal lobes extending minimally into the posterior parietal area on the left. White matter changes are also noted, compatible with moderate microvascular disease. The white matter changes appear to be slightly increased. Lacunar infarct is noted in the right basal ganglia anteriorly as previously. There is some cortical atrophy with prominence of sulci noted, overall similar to the previous study, but appearing somewhat increased in the left sylvian fissure area - temporal lobe. A definite acute intracranial abnormality such as bleeding site or hematoma was not identified. Although with new areas of low-density abnormality in the white matter, there may be evolving subcortical changes that may be acute. No shift of midline structures was noted. Ventricles are prominent, compatible with central atrophy. The paranasal sinuses and mastoid air cells appear to be fairly well aerated. Orbits appear to be grossly intact. No definite cranial abnormality was seen. IMPRESSION: 1. Encephalomalacia most prominent in the left occipital area extending into the temporal and posterior parietal areas on the left. 2. Central and cortical atrophy is noted. 3. Moderate microvascular disease-type changes are noted in the white matter with some appearing new compared with the previous study. The possibility of acute change in those areas and even in the areas of previous encephalomalacia - previous thrombotic stroke, cannot be excluded. 4. Calcifications noted in the internal carotid arteries. Report was called to Dr. Calderon at 1904 hours. [facility]
--- NOTE | 2020-01-17 19:46 | CR ---
INDICATION: CVA. CHEST, ONE VIEW: A single portable AP upright view of the chest 01/17/20 was compared with 12/09/17 and 07/15/17. Unipolar pacemaker is unchanged in position. The heart is normal in size and shape. The aorta is tortuous with calcification in the arch, as previously. An active infiltrate or effusion was not identified with a minimal density at the left costophrenic angle, unchanged from the previous study of 12/09/17, likely fibrotic in nature. IMPRESSION: No acute process. MTDD
--- NOTE | 2020-01-17 19:58 | EDM.PDOC ---
ED HPI GENERAL MEDICAL PROBLEM - General Stated Complaint: slurred speech Time Seen by Provider: 01/17/20 18:45 Source of Information: Reports: Patient History Limitations: Reports: No Limitations - History of Present Illness INITIAL COMMENTS - FREE TEXT/NARRATIVE: Patient presented to the ED because of slurred speech which occurred at 5:30 pm and lasted for 30 minutes. Patient's friend also noticed that Kenzie has some shaking of the UE and later on she was confused and disoriented. Upon her arrival in the ED she is AAO x3 with a GCS of 15 and her slurred speech has resolved. - Related Data Allergies Allergy/AdvReac Type Severity Reaction Status Date / Time No Known Allergies Allergy Verified 12/10/18 09:40 Home Meds: Home Meds Levothyroxine 75 mcg PO DAILY 12/09/17 [History] Lisinopril/Hydrochlorothiazide [Lisinopril-Hctz 10-12.5 mg Tab] 1 tab PO DAILY 12/09/17 [History] Aspirin 81 mg PO BEDTIME 08/16/18 [History] Simvastatin 20 mg PO DAILY 12/10/18 [History] carBAMazepine [Carbamazepine ER] 100 mg PO BID 12/10/18 [History] Enoxaparin [Lovenox] 60 mg SUBCUT DAILY #5 syringe 12/11/18 [Rx] Warfarin [Coumadin] 5 mg PO DAILY #30 tab 12/11/18 [Rx] Past Medical History HEENT History: Reports: Cataract, Impaired Vision Other HEENT History: BILATERAL CATARACT, POSTERIOR AVIETREUOUS DETACHMENT: SIDE? 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 it was removed, can still feel it Respiratory History: Reports: None, PE Gastrointestinal History: Reports: None Genitourinary History: Reports: None BULK LOADER History: Reports: None Musculoskeletal History: Reports: Other (See Below) Other Musculoskeletal History: chronic joint/shoulder pain Neurological History: Reports: CVA, Seizure Other Neuro History: HX HEAT STROKE, APHASIA R/T CVA Endocrine/Metabolic History: Reports: Hypothyroidism Hematologic History: Reports: None Immunologic History: Reports: None Oncologic (Cancer) History: Reports: None - Infectious Disease History Infectious Disease History: Reports: Chicken Pox, Measles, Mumps - Past Surgical History HEENT Surgical History: Reports: Cataract Surgery Social & Family History - Family History Family Medical History: Noncontributory - Caffeine Use Caffeine Use: Reports: None Caffeine Use Comment: 1 can per day. - Living Situation & Occupation Occupation: Retired ED ROS GENERAL - Review of Systems Review Of Systems: See Below Constitutional: Reports: No Symptoms HEENT: Reports: No Symptoms Respiratory: Reports: No Symptoms Cardiovascular: Reports: No Symptoms Endocrine: Reports: No Symptoms GI/Abdominal: Reports: No Symptoms : Reports: No Symptoms Musculoskeletal: Reports: No Symptoms Skin: Reports: No Symptoms Neurological: Reports: No Symptoms Psychiatric: Reports: No Symptoms Hematologic/Lymphatic: Reports: No Symptoms ED EXAM, NEURO - Physical Exam Exam: See Below Exam Limited By: No Limitations General Appearance: Alert, No Apparent Distress Eye Exam: Bilateral Eye: PERRL Ears: Normal External Exam, Normal Canal, Hearing Grossly Normal Nose: Normal Inspection, Normal Mucosa, No Blood Throat/Mouth: Normal Inspection, Normal Lips, Normal Teeth, Normal Gums Head Exam: Atraumatic, Normocephalic Neck: Normal Inspection, Supple, Non-Tender, Full Range of Motion Respiratory/Chest: No Respiratory Distress, Lungs Clear, Normal Breath Sounds Cardiovascular: Normal Peripheral Pulses, Regular Rate, Rhythm, No Edema, No Gallop, No JVD, No Murmur, No Rub GI/Abdominal: Normal Bowel Sounds, Soft, Non-Tender, No Organomegaly Neurological: Alert, Normal Mood/Affect, Normal Dorsiflexion, CN II-XII Intact, Normal Plantar Flexion, Normal Gait, Normal Reflexes, No Motor/Sensory Deficits, Oriented x 3 Course - Vital Signs Text/Narrative:: Labs/EKG/Head CT was discussed with patient and verbalized full understanding Last Recorded V/S: Last Vital Signs Temp 36.8 C 01/17/20 18:40 Pulse 81 01/17/20 18:40 Resp 16 01/17/20 18:40 BP 156/75 H 01/17/20 18:40 Pulse Ox 100 01/17/20 18:40 - Orders/Labs/Meds Orders: Active Orders 24 hr Category Date Time Status EKG Documentation Completion [RC] ASDIRECTED Care 01/17/20 18:51 Active Saline Lock Insert [OM.PC] Routine Oth 01/17/20 18:50 Ordered EKG 12 Lead [EK] Routine Ther 01/17/20 18:50 Ordered Labs: Laboratory Tests 01/17/20 01/17/20 01/17/20 Range/Units 19:00 19:00 19:00 WBC 6.3 (4.5-12.0) X10-3/uL RBC 4.26 (3.23-5.20) x10(6)uL Hgb 13.8 (11.5-15.5) g/dL Hct 40.3 (30.0-51.3) % MCV 94.7 (80-96) fL MCH 32.3 (27.7-33.6) pg MCHC 34.1 (32.2-35.4) g/dL RDW 12.3 (11.5-15.5) % Plt Count 187 (125-369) X10(3)uL MPV 6.8 L (7.4-10.4) fL Neut % (Auto) 68.9 (46-82) % Lymph % (Auto) 18.7 (13-37) % [place] % (Auto) 8.1 (4-12) % Eos % (Auto) 4 (1.0-5.0) % Baso % (Auto) 1 (0-2) % Neut # (Auto) 4.4 (1.6-8.3) # Lymph # (Auto) 1.2 (0.6-5.0) # [place] # (Auto) 0.5 (0.0-1.3) # Eos # (Auto) 0.2 (0.0-0.8) # Baso # (Auto) 0.0 (0.0-0.2) # PT 10.5 (9.0-11.1) sec INR 0.97 L (1.00-1.24) APTT 23.4 L (24.4-33.2) SECONDS Sodium 141 (135-145) mmol/L Potassium 4.8 D (3.5-5.3) mmol/L Chloride 105 (100-110) mmol/L Carbon Dioxide 29 (21-32) mmol/L BUN 31 H (7-18) mg/dL Creatinine 1.9 H (0.55-1.02) mg/dL Est Cr Clr Drug Dosing TNP Estimated GFR (MDRD) 26 L (>60) BUN/Creatinine Ratio 16.3 (9-20) Glucose 110 (80-116) mg/dL Calcium 9.4 (8.6-10.2) mg/dL Total Bilirubin 0.4 (0.1-1.3) mg/dL AST 26 H D (5-25) IU/L ALT 16 D (12-36) U/L Alkaline Phosphatase 114 H (56-112) IU/L Troponin I (4.0-60.3) pg/mL Total Protein 7.4 (6.0-8.0) g/dL Albumin 4.0 (3.2-4.6) g/dL Globulin 3.4 g/dL Albumin/Globulin Ratio 1.2 Carbamazepine (<0.5) ug/mL 01/17/20 01/17/20 Range/Units 19:00 19:00 WBC (4.5-12.0) X10-3/uL RBC (3.23-5.20) x10(6)uL Hgb (11.5-15.5) g/dL Hct (30.0-51.3) % MCV (80-96) fL MCH (27.7-33.6) pg MCHC (32.2-35.4) g/dL RDW (11.5-15.5) % Plt Count (125-369) X10(3)uL MPV (7.4-10.4) fL Neut % (Auto) (46-82) % Lymph % (Auto) (13-37) % [place] % (Auto) (4-12) % Eos % (Auto) (1.0-5.0) % Baso % (Auto) (0-2) % Neut # (Auto) (1.6-8.3) # Lymph # (Auto) (0.6-5.0) # [place] # (Auto) (0.0-1.3) # Eos # (Auto) (0.0-0.8) # Baso # (Auto) (0.0-0.2) # PT (9.0-11.1) sec INR (1.00-1.24) APTT (24.4-33.2) SECONDS Sodium (135-145) mmol/L Potassium (3.5-5.3) mmol/L Chloride (100-110) mmol/L Carbon Dioxide (21-32) mmol/L BUN (7-18) mg/dL Creatinine (0.55-1.02) mg/dL Est Cr Clr Drug Dosing Estimated GFR (MDRD) (>60) BUN/Creatinine Ratio (9-20) Glucose (80-116) mg/dL Calcium (8.6-10.2) mg/dL Total Bilirubin (0.1-1.3) mg/dL AST (5-25) IU/L ALT (12-36) U/L Alkaline Phosphatase (56-112) IU/L Troponin I 24.7 (4.0-60.3) pg/mL Total Protein (6.0-8.0) g/dL Albumin (3.2-4.6) g/dL Globulin g/dL Albumin/Globulin Ratio Carbamazepine 5.1 (<0.5) ug/mL Meds: Medications Discontinued Medications Generic Name Dose Route Start Last Admin Trade Name Freq PRN Reason Stop Dose Admin Sodium Chloride 10 ml 01/17/20 18:50 Saline Flush FLUSH ASDIRECTED PRN Keep Vein Open Departure - Departure Time of Disposition: 20:30 Disposition: Home, Self-Care 01 Condition: Good Clinical Impression: Seizure, TIA (transient ischemic attack) - Discharge Information Instructions: Transient Ischemic Attack, [id number], Seizure, Adult, [id number] Referrals: Shantanu Gorman MD [Primary Care Provider] - Forms: ED Department Discharge Additional Instructions: Please read discharge instructions on seizure and TIA(mini stroke) Continue your carbamazepine Follow up with your doctor this week - My Orders Last 24 Hours: My Active Orders 01/17/20 18:50 Saline Lock Insert [OM.PC] Routine EKG 12 Lead [EK] Routine 01/17/20 18:51 EKG Documentation Completion [RC] ASDIRECTED - Assessment/Plan Last 24 Hours: My Active Orders 01/17/20 18:50 Saline Lock Insert [OM.PC] Routine EKG 12 Lead [EK] Routine 01/17/20 18:51 EKG Documentation Completion [RC] ASDIRECTED
[2020-01-17 22:25] VITALS: BP 156/75; PULSE 81
== END 2020-01-17 20:35 | disposition home or self-care (01) ==
LOC: FB.ED 18:38
DX: G45.9 Transient cerebral ischemic attack, unspecified (principal); R56.9 Unspecified convulsions; E78.00 Pure hypercholesterolemia, unspecified; I10 Essential (primary) hypertension; E03.9 Hypothyroidism, unspecified; Z79.82 Long term (current) use of aspirin; Z79.01 Long term (current) use of anticoagulants; Z79.899 Other long term (current) drug therapy; Z86.73 Personal history of transient ischemic attack (TIA), and cerebral infarction without residual deficits; Z86.718 Personal history of other venous thrombosis and embolism; Z86.711 Personal history of pulmonary embolism
CPT/HCPCS: 36415; 70450; 71045; 80053; 80156; 84484; 85025; 85610; 85730; 93005; 99285-25

== ENCOUNTER 2020-04-19 11:27 | Emergency (ER) | payer MEDICARE, OTHER ==
[2020-04-19] MEDS ORDERED: Ketorolac 30 MG/ML SDV IVPUSH ONE (12:15)
[2020-04-19] MEDS ORDERED: Sodium Chloride 0.9% 10 ML Syringe FLUSH PRN (12:16)
[2020-04-19] MEDS ORDERED: Iopamidol 755 Mg/ML 100 ML Bottle IV ONE (12:46)
--- NOTE | 2020-04-19 13:47 | CT ---
INDICATION: Chest pain. History of PE. Pain is under ribs on the left. COMPUTERIZED TOMOGRAPHY ANGIOGRAPHY OF THE CHEST WITH CONTRAST: Spiral 1.25 mm axial sections were obtained through the chest with 60 mL [id number] at 3 mL/s with sagittal and coronal reconstructions and axial reconstructions 04/19/20 and compared with 12/10/18. Total exam DLP was 488.85 mGy-cm. Calcifications noted in the arch of the aorta. Tracheal and bronchial cartilages are calcified. Coronary artery calcification is noted. No pericardial effusion was seen. The heart appears to be near the upper limits of normal in size and does appear increased in size compared with the previous examination. There appears to some prominence of the pyelocaliceal system at the left kidney, etiology indeterminate. Follow-up images delayed by CT may be helpful in that regard, but should be correlated clinically. Pulmonary emboli seen on the previous examination in segmental and subsegmental right lower lobe pulmonary arteries on axial images [id number], are now absent, apparently having resolved completely. The area of consolidated lung distal to the emboli also appears to have largely resolved. There are some minimal fibrotic changes at both lung bases, which may be slightly more prominent on the left than previously. No evidence of pulmonary emboli could be identified at this time. A definite active infiltrate or effusion was not identified with some minimal scarring noted at the lung bases. IMPRESSION: 1. No evidence of PE. 2. Resolution of previous PE in right lower lobe arteries. 3. Somewhat dilated-appearing collecting system left kidney could represent obstructive uropathy, but should be correlated clinically. A delayed CT scan could be helpful for confirmation. Report was called to Dr Calderon at 1326 hours. [facility]
--- NOTE | 2020-04-19 13:52 | EDM.PDOC ---
ED HPI GENERAL MEDICAL PROBLEM - General Chief Complaint: Respiratory Problem Stated Complaint: lower left chest discomfort Time Seen by Provider: 04/19/20 11:35 Source of Information: Reports: Patient History Limitations: Reports: No Limitations - History of Present Illness INITIAL COMMENTS - FREE TEXT/NARRATIVE: Patient presented to the ED because of left sided chest pain. The pain is sharp 6/10, and pleuritic type. There is no nausea/vomiting/dyspnea. No recent cough/cold, fever or chills. left rib/chest Pain Score (Numeric/FACES): 4 - Related Data Allergies Allergy/AdvReac Type Severity Reaction Status Date / Time No Known Allergies Allergy Verified 04/19/20 11:32 Home Meds: Home Meds Levothyroxine 75 mcg PO DAILY 12/09/17 [History] Lisinopril/Hydrochlorothiazide [Lisinopril-Hctz 10-12.5 mg Tab] 1 tab PO DAILY 12/09/17 [History] Aspirin 81 mg PO DAILY 08/16/18 [History] Simvastatin 20 mg PO BEDTIME 12/10/18 [History] carBAMazepine [Carbamazepine ER] 100 mg PO DAILY 12/10/18 [History] Naproxen 500 mg PO BID #15 tablet 04/19/20 [Rx] Sulfamethoxazole/Trimethoprim [Bactrim Ds Tablet] 1 each PO BID #6 tablet 04/19/20 [Rx] carBAMazepine [Carbamazepine ER] 200 mg PO BEDTIME 04/19/20 [History] Past Medical History HEENT History: Reports: Cataract, Impaired Vision Other HEENT History: BILATERAL CATARACT, POSTERIOR AVIETREUOUS DETACHMENT: SIDE? 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 Musculoskeletal History: Reports: Other (See Below) Other Musculoskeletal History: chronic joint/shoulder pain Neurological History: Reports: CVA, Seizure Other Neuro History: HX HEAT STROKE, APHASIA R/T CVA Endocrine/Metabolic History: Reports: Hypothyroidism Hematologic History: Reports: None Immunologic History: Reports: None Oncologic (Cancer) History: Reports: None - Infectious Disease History Infectious Disease History: Reports: Chicken Pox, Measles, Mumps - Past Surgical History HEENT Surgical History: Reports: Cataract Surgery Social & Family History - Family History Family Medical History: Noncontributory - Tobacco Use Tobacco Use Status *Q: Never Tobacco User - Caffeine Use Caffeine Use: Reports: None Caffeine Use Comment: 1 can per day. - Recreational Drug Use Recreational Drug Use: No - Living Situation & Occupation Occupation: Retired ED ROS GENERAL - Review of Systems Review Of Systems: See Below Constitutional: Reports: No Symptoms HEENT: Reports: No Symptoms Respiratory: Reports: Cough Cardiovascular: Reports: Chest Pain Endocrine: Reports: No Symptoms GI/Abdominal: Reports: No Symptoms : Reports: No Symptoms Musculoskeletal: Reports: No Symptoms Skin: Reports: No Symptoms Neurological: Reports: No Symptoms Psychiatric: Reports: No Symptoms Hematologic/Lymphatic: Reports: No Symptoms ED EXAM, GENERAL - Physical Exam Exam: See Below Exam Limited By: No Limitations General Appearance: Alert, No Apparent Distress Ears: Normal External Exam Nose: Normal Inspection, Normal Mucosa Throat/Mouth: Normal Inspection, Normal Lips, Normal Teeth Head: Atraumatic, Normocephalic Respiratory/Chest: No Respiratory Distress, Lungs Clear, Normal Breath Sounds Cardiovascular: Normal Peripheral Pulses, Regular Rate, Rhythm, No Edema, No Gallop GI/Abdominal: Normal Bowel Sounds, Soft, Non-Tender, No Organomegaly Back Exam: Normal Inspection, Full Range of Motion Extremities: Normal Inspection, Normal Range of Motion Neurological: Alert, Oriented, CN II-XII Intact, Normal Cognition Course - Vital Signs Text/Narrative:: Labs/Chest and abd CT result was discussed with patient Refused to have EKG Last Recorded V/S: Last Vital Signs Temp 36.4 C 04/19/20 11:30 Pulse 81 04/19/20 11:30 Resp 18 04/19/20 11:30 BP 139/70 04/19/20 11:30 Pulse Ox 99 04/19/20 11:30 - Orders/Labs/Meds Orders: Active Orders 24 hr Category Date Time Status EKG Documentation Completion [RC] ASDIRECTED Care 04/19/20 12:16 Active Abdomen Pelvis wo Cont [CT] Stat Exams 04/19/20 13:32 Taken CULTURE URINE [RM] Stat Lab 04/19/20 12:33 Ordered Sodium Chloride 0.9% [Saline Flush] Med 04/19/20 12:16 Active 10 ml FLUSH ASDIRECTED PRN Saline Lock Insert [OM.PC] Routine Oth 04/19/20 12:16 Ordered EKG 12 Lead [EK] Routine Ther 04/19/20 12:16 Ordered Medication Orders Sodium Chloride (Saline Flush) 10 ml FLUSH ASDIRECTED PRN PRN Reason: Keep Vein Open Labs: Laboratory Tests 04/19/20 04/19/20 04/19/20 Range/Units 12:15 12:20 12:20 WBC 8.2 (4.5-12.0) X10-3/uL RBC 4.47 (3.23-5.20) x10(6)uL Hgb 14.4 (11.5-15.5) g/dL Hct 42.5 (30.0-51.3) % MCV 95.2 (80-96) fL MCH 32.3 (27.7-33.6) pg MCHC 34.0 (32.2-35.4) g/dL RDW 11.9 (11.5-15.5) % Plt Count 256 (125-369) X10(3)uL MPV 6.6 L (7.4-10.4) fL Neut % (Auto) 79.2 (46-82) % Lymph % (Auto) 13.6 (13-37) % [place] % (Auto) 5.0 (4-12) % Eos % (Auto) 2 (1.0-5.0) % Baso % (Auto) 0 (0-2) % Neut # (Auto) 6.5 (1.6-8.3) # Lymph # (Auto) 1.1 (0.6-5.0) # [place] # (Auto) 0.4 (0.0-1.3) # Eos # (Auto) 0.2 (0.0-0.8) # Baso # (Auto) 0.0 (0.0-0.2) # PT 10.4 (9.0-11.1) sec INR 0.96 L (1.00-1.24) APTT 23.7 L (24.4-33.2) SECONDS Sodium (135-145) mmol/L Potassium (3.5-5.3) mmol/L Chloride (100-110) mmol/L Carbon Dioxide (21-32) mmol/L BUN (7-18) mg/dL Creatinine (0.55-1.02) mg/dL Est Cr Clr Drug Dosing mL/min Estimated GFR (MDRD) (>60) BUN/Creatinine Ratio (9-20) Glucose (80-116) mg/dL Calcium (8.6-10.2) mg/dL Total Bilirubin (0.1-1.3) mg/dL AST (5-25) IU/L ALT (12-36) U/L Alkaline Phosphatase (56-112) IU/L Troponin I (4.0-60.3) pg/mL Total Protein (6.0-8.0) g/dL Albumin (3.2-4.6) g/dL Globulin g/dL Albumin/Globulin Ratio Urine Color Yellow (YELLOW) Urine Appearance Clear (CLEAR) Urine pH 5.0 (5.0-6.5) Ur Specific [place] 1.020 (1.010-1.025) Urine Protein Negative (NEGATIVE) mg/dL Urine Glucose (UA) Normal (NORMAL) mg/dL Urine Ketones Negative (NEGATIVE) mg/dL Urine Occult Blood Negative (NEGATIVE) Urine Nitrite Negative (NEGATIVE) Urine Bilirubin Negative (NEGATIVE) Urine Urobilinogen Normal (NEGATIVE) mg/dL Ur Leukocyte Esterase Large H (NEGATIVE) Urine RBC 0-5 (0-5) Urine WBC 20-30 H (0-5) Ur Squamous Epith Cells Few H (NS,R,O) Urine Bacteria Moderate H (NS) 04/19/20 04/19/20 Range/Units 12:20 12:20 WBC (4.5-12.0) X10-3/uL RBC (3.23-5.20) x10(6)uL Hgb (11.5-15.5) g/dL Hct (30.0-51.3) % MCV (80-96) fL MCH (27.7-33.6) pg MCHC (32.2-35.4) g/dL RDW (11.5-15.5) % Plt Count (125-369) X10(3)uL MPV (7.4-10.4) fL Neut % (Auto) (46-82) % Lymph % (Auto) (13-37) % [place] % (Auto) (4-12) % Eos % (Auto) (1.0-5.0) % Baso % (Auto) (0-2) % Neut # (Auto) (1.6-8.3) # Lymph # (Auto) (0.6-5.0) # [place] # (Auto) (0.0-1.3) # Eos # (Auto) (0.0-0.8) # Baso # (Auto) (0.0-0.2) # PT (9.0-11.1) sec INR (1.00-1.24) APTT (24.4-33.2) SECONDS Sodium 145 (135-145) mmol/L Potassium 4.0 (3.5-5.3) mmol/L Chloride 105 (100-110) mmol/L Carbon Dioxide 31 (21-32) mmol/L BUN 36 H (7-18) mg/dL Creatinine 1.4 H (0.55-1.02) mg/dL Est Cr Clr Drug Dosing 24.99 mL/min Estimated GFR (MDRD) 36 L (>60) BUN/Creatinine Ratio 25.7 H (9-20) Glucose 98 (80-116) mg/dL Calcium 9.8 (8.6-10.2) mg/dL Total Bilirubin 0.4 (0.1-1.3) mg/dL AST 28 H (5-25) IU/L ALT 18 D (12-36) U/L Alkaline Phosphatase 126 H (56-112) IU/L Troponin I 10.7 (4.0-60.3) pg/mL Total Protein 8.2 H (6.0-8.0) g/dL Albumin 4.4 (3.2-4.6) g/dL Globulin 3.8 g/dL Albumin/Globulin Ratio 1.2 Urine Color (YELLOW) Urine Appearance (CLEAR) Urine pH (5.0-6.5) Ur Specific [place] (1.010-1.025) Urine Protein (NEGATIVE) mg/dL Urine Glucose (UA) (NORMAL) mg/dL Urine Ketones (NEGATIVE) mg/dL Urine Occult Blood (NEGATIVE) Urine Nitrite (NEGATIVE) Urine Bilirubin (NEGATIVE) Urine Urobilinogen (NEGATIVE) mg/dL Ur Leukocyte Esterase (NEGATIVE) Urine RBC (0-5) Urine WBC (0-5) Ur Squamous Epith Cells (NS,R,O) Urine Bacteria (NS) Meds: Medications Generic Name Dose Route Start Last Admin Trade Name Freq PRN Reason Stop Dose Admin Sodium Chloride 10 ml 04/19/20 12:16 Saline Flush FLUSH ASDIRECTED PRN Keep Vein Open Discontinued Medications Generic Name Dose Route Start Last Admin Trade Name Freq PRN Reason Stop Dose Admin Iopamidol 100 ml 04/19/20 12:46 04/19/20 13:04 Isovue-370 (76%) IV 04/19/20 12:47 60 ml . DIRECTED ONE Administration Ketorolac Tromethamine 15 mg 04/19/20 12:15 Toradol IVPUSH 04/19/20 12:16 ONETIME ONE Departure - Departure Time of Disposition: 13:50 Disposition: Home, Self-Care 01 Condition: Good Clinical Impression: Pleuritic pain, UTI (urinary tract infection) - Discharge Information Prescriptions: Sulfamethoxazole/Trimethoprim [Bactrim Ds Tablet] 1 each PO BID #6 tablet Naproxen 500 mg PO BID #15 tablet Instructions: Chest Wall Pain, [id number], Urinary Tract Infection, Adult Referrals: Shantanu Gorman MD [Primary Care Provider] - Forms: ED Department Discharge Additional Instructions: Please read discharge istructions on chest wall pain and UTI Increase ral fluids Take naproxen 500 mg twice daily for 7 days Bactrim DS twice daily for 3 days Follow up as needed Sepsis Event Note (ED) - Evaluation Sepsis Screening Result: No Definite Risk - Focused Exam Vital Signs: Vital Signs Temp Pulse Resp BP Pulse Ox 04/19/20 11:30 36.4 C 81 18 139/70 99 - My Orders Last 24 Hours: My Active Orders 04/19/20 12:16 EKG Documentation Completion [RC] ASDIRECTED Sodium Chloride 0.9% [Saline Flush] 10 ml FLUSH ASDIRECTED PRN Saline Lock Insert [OM.PC] Routine EKG 12 Lead [EK] Routine 04/19/20 12:33 CULTURE URINE [RM] Stat 04/19/20 13:32 Abdomen Pelvis wo Cont [CT] Stat - Assessment/Plan Last 24 Hours: My Active Orders 04/19/20 12:16 EKG Documentation Completion [RC] ASDIRECTED Sodium Chloride 0.9% [Saline Flush] 10 ml FLUSH ASDIRECTED PRN Saline Lock Insert [OM.PC] Routine EKG 12 Lead [EK] Routine 04/19/20 12:33 CULTURE URINE [RM] Stat 04/19/20 13:32 Abdomen Pelvis wo Cont [CT] Stat
[2020-04-19 14:33] VITALS: BP 135/68; PULSE 59
== END 2020-04-19 14:15 | disposition home or self-care (01) ==
LOC: FB.ED 11:27
DX: R07.81 Pleurodynia (principal); N39.0 Urinary tract infection, site not specified; E78.00 Pure hypercholesterolemia, unspecified; I10 Essential (primary) hypertension; E03.9 Hypothyroidism, unspecified; R56.9 Unspecified convulsions; Z79.82 Long term (current) use of aspirin; Z79.899 Other long term (current) drug therapy; Z86.73 Personal history of transient ischemic attack (TIA), and cerebral infarction without residual deficits
CPT/HCPCS: 36415; 71275; 74176; 80053; 81001; 84484; 85025; 85610; 85730; 87086; 99285; Q9967

== ENCOUNTER 2020-07-21 11:21 | Emergency (ER) | payer MEDICARE, OTHER ==
--- NOTE | 2020-07-21 11:57 | EDM.PDOC ---
ED HPI GENERAL MEDICAL PROBLEM - General Chief Complaint: Neuro Symptoms/Deficits Stated Complaint: ??? Numbness and tingling in the left arm Time Seen by Provider: 07/21/20 11:40 Source of Information: Reports: Patient History Limitations: Reports: No Limitations - History of Present Illness INITIAL COMMENTS - FREE TEXT/NARRATIVE: Was sitting in recliner this am when she noted sudden onset of tingling in the left arm , then she noted in the left leg. Got up and started walking around her apartment and still the numbness was still there Call her friend to bring her in . By the time she got to the ER , symptoms had resolved pt has history of stroke and seizures and is on medications for them Onset: Today Onset Date: 07/21/20 Duration: Resolved Prior to Arrival Location: Reports: Head, Upper Extremity, Left, Lower Extremity, Left Quality: Reports: Burning, Pressure Severity: Mild Improves with: Reports: None Worsens with: Reports: None Associated Symptoms: Reports: No Other Symptoms - Related Data Allergies Allergy/AdvReac Type Severity Reaction Status Date / Time No Known Allergies Allergy Verified 04/19/20 11:32 Home Meds: Home Meds Levothyroxine 75 mcg PO DAILY 12/09/17 [History] Lisinopril/Hydrochlorothiazide [Lisinopril-Hctz 10-12.5 mg Tab] 1 tab PO DAILY 12/09/17 [History] Aspirin 81 mg PO DAILY 08/16/18 [History] Simvastatin 20 mg PO BEDTIME 12/10/18 [History] carBAMazepine [Carbamazepine ER] 100 mg PO DAILY 12/10/18 [History] Naproxen 500 mg PO BID #15 tablet 04/19/20 [Rx] Sulfamethoxazole/Trimethoprim [Bactrim Ds Tablet] 1 each PO BID #6 tablet 04/19/20 [Rx] carBAMazepine [Carbamazepine ER] 200 mg PO BEDTIME 04/19/20 [History] Past Medical History HEENT History: Reports: Cataract, Impaired Vision Other HEENT History: BILATERAL CATARACT, POSTERIOR AVIETREUOUS DETACHMENT: SIDE? 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 Musculoskeletal History: Reports: Other (See Below) Other Musculoskeletal History: chronic joint/shoulder pain Neurological History: Reports: CVA, Seizure Other Neuro History: HX HEAT STROKE, APHASIA R/T CVA Endocrine/Metabolic History: Reports: Hypothyroidism Hematologic History: Reports: None Immunologic History: Reports: None Oncologic (Cancer) History: Reports: None - Infectious Disease History Infectious Disease History: Reports: Chicken Pox, Measles, Mumps - Past Surgical History HEENT Surgical History: Reports: Cataract Surgery Social & Family History - Family History Family Medical History: No Pertinent Family History - Caffeine Use Caffeine Use: Reports: None Caffeine Use Comment: 1 can per day. - Living Situation & Occupation Occupation: Retired ED ROS GENERAL - Review of Systems Review Of Systems: Comprehensive ROS is negative, except as noted in HPI. ED EXAM, NEURO - Physical Exam Exam: See Below Exam Limited By: No Limitations General Appearance: Alert, WD/WN, No Apparent Distress Eye Exam: Bilateral Eye: EOMI Ears: Normal TMs Nose: Normal Inspection Throat/Mouth: Normal Oropharynx Head Exam: Atraumatic, Normocephalic Neck: Supple, Non-Tender Respiratory/Chest: No Respiratory Distress, Lungs Clear, No Accessory Muscle Use, Decreased Breath Sounds Cardiovascular: Regular Rate, Rhythm, No Edema GI/Abdominal: Soft, Non-Tender Neurological: Alert, Normal Mood/Affect, CN II-XII Intact, No Motor/Sensory Deficits, Oriented x 3 Back Exam: Full Range of Motion, CVA Tenderness (R), CVA Tenderness (L) Extremities: Normal Range of Motion, No Pedal Edema Psychiatric: Normal Affect Skin Exam: Warm, Intact, Normal Color Course - Vital Signs Last Recorded V/S: Last Vital Signs Temp 36.8 C 07/21/20 11:35 Pulse 82 07/21/20 11:35 Resp 17 07/21/20 11:35 BP 140/101 H 07/21/20 11:35 Pulse Ox 100 07/21/20 11:35 - Orders/Labs/Meds Orders: Active Orders 24 hr Category Date Time Status Head wo Cont [CT] Stat Exams 07/21/20 11:36 Taken Meds: Medications Discontinued Medications Generic Name Dose Route Start Last Admin Trade Name Freq PRN Reason Stop Dose Admin Aspirin 324 mg 07/21/20 12:08 07/21/20 12:12 Aspirin PO 07/21/20 12:09 324 mg ONETIME ONE Administration - Re-Assessments/Exams Free Text/Narrative Re-Assessment/Exam: 07/21/20 13:[address] done that was negative Symptoms resolved and have no returned pt is feeliing well Departure - Departure Time of Disposition: 01:15 Disposition: Home, Self-Care 01 Condition: Fair Clinical Impression: Muscle spasms of neck, Neck muscle strain - Discharge Information *PRESCRIPTION DRUG MONITORING PROGRAM REVIEWED*: Not Applicable *COPY OF PRESCRIPTION DRUG MONITORING REPORT IN PATIENT NATHANAEL: Not Applicable Instructions: Neck Exercises, Muscle Strain, [id number] Referrals: Shantanu Gorman MD [Primary Care Provider] - Forms: ED Department Discharge Additional Instructions: 1) Do neck exercises as discussed 2) If symptoms occur again : you will need to return to the ER for CT of the neck 3) make appointment to Follow up with your provider Sepsis Event Note (ED) - Evaluation Sepsis Screening Result: No Definite Risk - Focused Exam Vital Signs: Vital Signs Temp Pulse Resp BP Pulse Ox 07/21/20 11:35 36.8 C 82 17 140/101 H 100 - My Orders Last 24 Hours: My Active Orders 07/21/20 11:36 Head wo Cont [CT] Stat - Assessment/Plan Last 24 Hours: My Active Orders 07/21/20 11:36 Head wo Cont [CT] Stat
[2020-07-21] MEDS ORDERED: Aspirin 81 MG Tab.Chew PO ONE (12:08)
[2020-07-21 15:40] VITALS: BP 125/71; PULSE 62
== END 2020-07-21 13:30 | disposition home or self-care (01) ==
LOC: FB.ED 11:21
DX: S16.1XXA Strain of muscle, fascia and tendon at neck level, initial encounter (principal); E78.00 Pure hypercholesterolemia, unspecified; I10 Essential (primary) hypertension; R56.9 Unspecified convulsions; E03.9 Hypothyroidism, unspecified; Z79.82 Long term (current) use of aspirin; Z79.899 Other long term (current) drug therapy; Z86.73 Personal history of transient ischemic attack (TIA), and cerebral infarction without residual deficits; X50.9XXA Other and unspecified overexertion or strenuous movements or postures, initial encounter
CPT/HCPCS: 70450; 99282; 99284-25; A9270-GY

== ENCOUNTER 2022-02-14 12:22 | Emergency (ER) | payer MEDICARE, OTHER ==
[2022-02-14 13:58] VITALS: BP 136/86; PULSE 81
== END 2022-02-14 12:45 | disposition home or self-care (01) ==
LOC: FB.ED 12:22
DX: S01.81XA Laceration without foreign body of other part of head, initial encounter (principal); I10 Essential (primary) hypertension; Z79.899 Other long term (current) drug therapy; W01.0XXA Fall on same level from slipping, tripping and stumbling without subsequent striking against object, initial encounter
CPT/HCPCS: 12011; 99282

== ENCOUNTER 2023-02-12 14:13 | Inpatient (IN) | payer MEDICARE, OTHER ==
[2023-02-12] MEDS ORDERED: Sodium Chloride 0.9% 10 ML Syringe FLUSH PRN (14:15)
[2023-02-12 14:46] LABS: BASOPHILS PERCENT AUTO 0.4 % (0.2-1.5); EOSINOPHILS ABSOLUTE AUTO 0.1 x10-3/uL (0.0-0.8); EOSINOPHILS PERCENT AUTO 1.3 % (0.6-8.1); HEMATOCRIT 37.3 % (34.2-48.2); HEMOGLOBIN 12.6 g/dL (11.4-15.5); LYMPHOCYTES ABSOLUTE AUTO 1.5 x10-3/uL (1.0-4.4); LYMPHOCYTES PERCENT AUTO 15.5 % (18.4-52.1); MEAN CORPUSCULAR HEMOGLOBIN 32.4 pg (23.9-33.9); MEAN CORPUSCULAR HGB CONC 33.8 g/dL (31.9-34.8); MEAN CORPUSCULAR VOLUME 95.8 fL (76.7-100.5); MEAN PLATELET VOLUME 7.1 fL (7.1-12.4); MONOCYTES ABSOLUTE AUTO 0.7 x10-3/uL (0.3-1.0); MONOCYTES PERCENT AUTO 7.8 % (4.4-15.7); NEUTROPHILS ABSOLUTE AUTO 7.2 x10-3/uL (1.5-6.3); PLATELET COUNT,PLT 266 x10(3)uL (151-488); RED BLOOD CELL COUNT 3.89 x10(6)uL (3.60-5.20); RED CELL DISTRIBUTION WIDTH 12.8 % (12.3-16.5); WHITE BLOOD CELL COUNT,WBC 9.6 x10-3/uL (3.0-10.3)
[2023-02-12 15:06] LABS: A/G RATIO 1.2; ALANINE AMINOTRANSFERASE,ALT 11 U/L (12-36); ALBUMIN 4.1 g/dL (3.2-4.6); ALKALINE PHOSPHATASE 161 IU/L (56-112); ASPARTATE AMNIOTRANSFERASE,AST 22 IU/L (5-25); BILIRUBIN TOTAL 0.5 mg/dL (0.1-1.3); BLOOD UREA NITROGEN,BUN 42 mg/dL (7-18); CALCIUM 9.6 mg/dL (8.6-10.2); CARBON DIOXIDE,CO2 25 mmol/L (21-32); CHLORIDE,CL 104 mmol/L (100-110); EST CRCL DRUG DOSING (CG) 17.45 mL/min; ESTIMATED GFR 25 mL/min (>60); GLUCOSE RANDOM 145 mg/dL (80-116); POTASSIUM,K 4.3 mmol/L (3.5-5.3); PROTEIN TOTAL,TP 7.4 g/dL (6.0-8.0); SODIUM,NA 142 mmol/L (135-145)
[2023-02-12 15:12] LABS: LACTIC ACID 2.7 mmol/L (0.4-2.0)
[2023-02-12] MEDS ORDERED: Sodium Chloride 3% 500 ML IV SCH (15:15)
[2023-02-12] MEDS: Sodium Chloride 0.9% 1,000 ML IV SCH ×3 (15:21→16:52)
[2023-02-12 15:24] LABS: BILIRUBIN,URINE NEGATIVE (NEGATIVE); GLUCOSE,URINE NORMAL (NORMAL); KETONES,URINE NEGATIVE (NEGATIVE); LEUKOCYTE ESTERASE,URINE NEGATIVE (NEGATIVE); NITRITE,URINE POSITIVE (NEGATIVE); OCCULT BLOOD,URINE NEGATIVE (NEGATIVE); PROTEIN,URINE NEGATIVE (NEGATIVE); UROBILINOGEN,URINE NORMAL (NEGATIVE)
[2023-02-12 15:27] LABS: APPEARANCE,URINE SLIGHTLY CLOUDY (CLEAR); BACTERIA,URINE MODERATE (NS); COLOR,URINE YELLOW (YELLOW); RBC,URINE 0-5 (0-5); SQUAMOUS EPITHELIAL CELLS,UR MODERATE (NS,R,O); WBC,URINE 0-5 (0-5)
[2023-02-12] MEDS ORDERED: cefTRIAXone 1 GM Vial IVPUSH STA (16:26)
[2023-02-12] MEDS ORDERED: Lactulose Soln 10 GM/15 ML 30 ML UD Cup PO STA (17:39)
[2023-02-12] MEDS ORDERED: Sennosides/Docusate Sodium 50-8.6 MG Tab PO ONE (17:39)
[2023-02-12] MEDS ORDERED: Bisacodyl 5 MG Tab PO ONE (17:39)
[2023-02-12] MEDS ORDERED: Sennosides/Docusate Sodium 50-8.6 MG Tab PO PRN ×2 (17:56→18:08)
[2023-02-12] MEDS ORDERED: Ondansetron 4 MG/2 ML SDV IV PRN ×2 (17:56→18:08)
[2023-02-12] MEDS ORDERED: Acetaminophen 325 MG Tab PO PRN (17:56)
[2023-02-12] MEDS ORDERED: Enoxaparin 30 MG/0.3 ML Syringe SUBCUT SCH (18:00)
[2023-02-12] MEDS: Acetaminophen 325 MG Tab PO PRN (18:19)
[2023-02-12] MEDS ORDERED: Lactulose Soln 10 GM/15 ML 15 ML UD Cup PO ONE ×2 (18:24→18:28)
[2023-02-12] MEDS ORDERED: Lactulose Soln 10 GM/15 ML 15 ML UD Cup PO STA (18:29)
[2023-02-12] MEDS ORDERED: Simvastatin 20 MG Tab PO SCH (21:00)
[2023-02-12] MEDS ORDERED: carBAMazepine 200 MG TAB.ER PO SCH (21:00)
[2023-02-12] MEDS ORDERED: SIMVASTATIN 20 MG PO SCH (21:00)
[2023-02-12] MEDS ORDERED: Aspirin 81 MG Tab.Chew PO SCH (21:00)
[2023-02-12] MEDS: Aspirin 81 MG Tab.Chew PO SCH (21:19)
[2023-02-12] MEDS: CARBAMAZEPINE 100 MG PO SCH (21:20)
[2023-02-12] MEDS: traMADol 50 MG Tab PO PRN (21:21)
[2023-02-12 22:19] LABS: LACTIC ACID 1.9 mmol/L (0.4-2.0)
[2023-02-13] MEDS: Sodium Chloride 0.9% 1,000 ML IV SCH ×3 (00:54→18:20)
[2023-02-13] MEDS: Acetaminophen 325 MG Tab PO PRN ×2 (06:34→14:52)
[2023-02-13 06:47] LABS: BASOPHILS PERCENT AUTO 0.3 % (0.2-1.5); EOSINOPHILS ABSOLUTE AUTO 0.1 x10-3/uL (0.0-0.8); EOSINOPHILS PERCENT AUTO 0.8 % (0.6-8.1); HEMATOCRIT 34.5 % (34.2-48.2); HEMOGLOBIN 11.9 g/dL (11.4-15.5); LYMPHOCYTES ABSOLUTE AUTO 0.8 x10-3/uL (1.0-4.4); LYMPHOCYTES PERCENT AUTO 8.1 % (18.4-52.1); MEAN CORPUSCULAR HEMOGLOBIN 33.1 pg (23.9-33.9); MEAN CORPUSCULAR HGB CONC 34.3 g/dL (31.9-34.8); MEAN CORPUSCULAR VOLUME 96.3 fL (76.7-100.5); MEAN PLATELET VOLUME 6.9 fL (7.1-12.4); MONOCYTES ABSOLUTE AUTO 0.8 x10-3/uL (0.3-1.0); MONOCYTES PERCENT AUTO 8.2 % (4.4-15.7); NEUTROPHILS ABSOLUTE AUTO 8.3 x10-3/uL (1.5-6.3); NEUTROPHILS PERCENT AUTO 82.6 % (30.8-76.2); PLATELET COUNT,PLT 199 x10(3)uL (151-488); RED BLOOD CELL COUNT 3.59 x10(6)uL (3.60-5.20); RED CELL DISTRIBUTION WIDTH 12.6 % (12.3-16.5)
[2023-02-13 07:21] LABS: A/G RATIO 1.2; ALANINE AMINOTRANSFERASE,ALT 11 U/L (12-36); ALBUMIN 3.4 g/dL (3.2-4.6); ALKALINE PHOSPHATASE 158 IU/L (56-112); ASPARTATE AMNIOTRANSFERASE,AST 21 IU/L (5-25); BILIRUBIN TOTAL 0.4 mg/dL (0.1-1.3); BLOOD UREA NITROGEN,BUN 37 mg/dL (7-18); BUN/CREATININE RATIO 20.6 (9-20); CALCIUM 8.3 mg/dL (8.6-10.2); CARBON DIOXIDE,CO2 26 mmol/L (21-32); CHLORIDE,CL 109 mmol/L (100-110); CREATININE 1.8 mg/dL (0.55-1.02); EST CRCL DRUG DOSING (CG) 19.39 mL/min; ESTIMATED GFR 28 mL/min (>60); GLUCOSE RANDOM 114 mg/dL (80-116); POTASSIUM,K 4.1 mmol/L (3.5-5.3); PROTEIN TOTAL,TP 6.3 g/dL (6.0-8.0); SODIUM,NA 144 mmol/L (135-145)
[2023-02-13] MEDS: CARBAMAZEPINE 100 MG PO SCH (08:47)
[2023-02-13] MEDS: Aspirin 81 MG Tab.Chew PO SCH ×2 (08:59→21:01)
[2023-02-13] MEDS ORDERED: Levothyroxine 75 MCG Tab PO SCH (09:00)
[2023-02-13] MEDS: Amoxicillin/Clavulanate K 500-125 MG Tab PO SCH ×2 (09:03→21:00)
[2023-02-13] MEDS: Pantoprazole 40 MG Tab.CR PO SCH (10:45)
[2023-02-13] MEDS ORDERED: cefTRIAXone 1 GM Vial IVPUSH SCH (17:00)
[2023-02-13] MEDS: Enoxaparin 30 MG/0.3 ML Syringe SUBCUT SCH (17:20)
[2023-02-13] MEDS: Sennosides/Docusate Sodium 50-8.6 MG Tab PO SCH (21:00)
[2023-02-13] MEDS: Simvastatin 20 MG Tab PO SCH (21:01)
[2023-02-13] MEDS: carBAMazepine 200 MG TAB.ER PO SCH (21:27)
[2023-02-14] MEDS: Sodium Chloride 0.9% 1,000 ML IV SCH (02:42)
[2023-02-14] MEDS: Pantoprazole 40 MG Tab.CR PO SCH (05:24)
[2023-02-14] MEDS: Levothyroxine 75 MCG Tab PO SCH (05:24)
[2023-02-14 06:43] LABS: BLOOD UREA NITROGEN,BUN 19 mg/dL (7-18); BUN/CREATININE RATIO 14.6 (9-20); CALCIUM 7.9 mg/dL (8.6-10.2); CARBON DIOXIDE,CO2 24 mmol/L (21-32); CHLORIDE,CL 110 mmol/L (100-110); CREATININE 1.3 mg/dL (0.55-1.02); EST CRCL DRUG DOSING (CG) 26.84 mL/min; ESTIMATED GFR 41 mL/min (>60); GLUCOSE RANDOM 88 mg/dL (80-116); POTASSIUM,K 3.7 mmol/L (3.5-5.3); SODIUM,NA 142 mmol/L (135-145)
[2023-02-14 06:44] LABS: BASOPHILS PERCENT AUTO 0.2 % (0.2-1.5); EOSINOPHILS ABSOLUTE AUTO 0.2 x10-3/uL (0.0-0.8); EOSINOPHILS PERCENT AUTO 2.5 % (0.6-8.1); HEMATOCRIT 28.1 % (34.2-48.2); HEMOGLOBIN 9.8 g/dL (11.4-15.5); LYMPHOCYTES ABSOLUTE AUTO 0.7 x10-3/uL (1.0-4.4); LYMPHOCYTES PERCENT AUTO 9.2 % (18.4-52.1); MEAN CORPUSCULAR HEMOGLOBIN 33.3 pg (23.9-33.9); MEAN CORPUSCULAR VOLUME 95.3 fL (76.7-100.5); MEAN PLATELET VOLUME 7.4 fL (7.1-12.4); MONOCYTES ABSOLUTE AUTO 0.5 x10-3/uL (0.3-1.0); MONOCYTES PERCENT AUTO 7.5 % (4.4-15.7); NEUTROPHILS ABSOLUTE AUTO 5.8 x10-3/uL (1.5-6.3); NEUTROPHILS PERCENT AUTO 80.6 % (30.8-76.2); PLATELET COUNT,PLT 152 x10(3)uL (151-488); RED BLOOD CELL COUNT 2.95 x10(6)uL (3.60-5.20); RED CELL DISTRIBUTION WIDTH 12.8 % (12.3-16.5); WHITE BLOOD CELL COUNT,WBC 7.2 x10-3/uL (3.0-10.3)
[2023-02-14] MEDS: Amoxicillin/Clavulanate K 500-125 MG Tab PO SCH ×2 (09:21→21:01)
[2023-02-14] MEDS: Aspirin 81 MG Tab.Chew PO SCH ×2 (09:21→21:00)
[2023-02-14] MEDS: carBAMazepine 200 MG TAB.ER PO SCH ×2 (10:25→21:02)
[2023-02-14] MEDS: Hydrochlorothiazide/Lisinopril 12.5-10 MG Tab PO SCH (10:32)
[2023-02-14] MEDS: Enoxaparin 30 MG/0.3 ML Syringe SUBCUT SCH (18:47)
[2023-02-14] MEDS: Simvastatin 20 MG Tab PO SCH (21:01)
[2023-02-14] MEDS: Sennosides/Docusate Sodium 50-8.6 MG Tab PO SCH (21:02)
[2023-02-14] MEDS: traMADol 50 MG Tab PO PRN (23:19)
[2023-02-15] MEDS: traMADol 50 MG Tab PO PRN (05:22)
[2023-02-15] MEDS: Pantoprazole 40 MG Tab.CR PO SCH (05:23)
[2023-02-15] MEDS: Levothyroxine 75 MCG Tab PO SCH (05:23)
[2023-02-15 06:57] LABS: BASOPHILS PERCENT AUTO 0.3 % (0.2-1.5); EOSINOPHILS ABSOLUTE AUTO 0.2 x10-3/uL (0.0-0.8); EOSINOPHILS PERCENT AUTO 3.6 % (0.6-8.1); HEMATOCRIT 28.3 % (34.2-48.2); LYMPHOCYTES ABSOLUTE AUTO 0.7 x10-3/uL (1.0-4.4); LYMPHOCYTES PERCENT AUTO 15.2 % (18.4-52.1); MEAN CORPUSCULAR HEMOGLOBIN 33.4 pg (23.9-33.9); MEAN CORPUSCULAR HGB CONC 35.1 g/dL (31.9-34.8); MEAN CORPUSCULAR VOLUME 95.1 fL (76.7-100.5); MEAN PLATELET VOLUME 7.2 fL (7.1-12.4); MONOCYTES ABSOLUTE AUTO 0.3 x10-3/uL (0.3-1.0); MONOCYTES PERCENT AUTO 6.9 % (4.4-15.7); NEUTROPHILS ABSOLUTE AUTO 3.5 x10-3/uL (1.5-6.3); PLATELET COUNT,PLT 153 x10(3)uL (151-488); RED BLOOD CELL COUNT 2.98 x10(6)uL (3.60-5.20); RED CELL DISTRIBUTION WIDTH 12.6 % (12.3-16.5); WHITE BLOOD CELL COUNT,WBC 4.7 x10-3/uL (3.0-10.3)
[2023-02-15 07:02] LABS: BLOOD UREA NITROGEN,BUN 20 mg/dL (7-18); BUN/CREATININE RATIO 15.4 (9-20); CALCIUM 8.2 mg/dL (8.6-10.2); CARBON DIOXIDE,CO2 25 mmol/L (21-32); CHLORIDE,CL 109 mmol/L (100-110); CREATININE 1.3 mg/dL (0.55-1.02); EST CRCL DRUG DOSING (CG) 26.84 mL/min; ESTIMATED GFR 41 mL/min (>60); GLUCOSE RANDOM 90 mg/dL (80-116); POTASSIUM,K 4.1 mmol/L (3.5-5.3); SODIUM,NA 140 mmol/L (135-145)
[2023-02-15] MEDS: Amoxicillin/Clavulanate K 500-125 MG Tab PO SCH ×2 (08:06→20:11)
[2023-02-15] MEDS: Aspirin 81 MG Tab.Chew PO SCH ×2 (08:06→20:11)
[2023-02-15] MEDS: carBAMazepine 200 MG TAB.ER PO SCH ×2 (08:07→20:12)
[2023-02-15] MEDS: Hydrochlorothiazide/Lisinopril 12.5-10 MG Tab PO SCH (08:13)
[2023-02-15] MEDS: Enoxaparin 30 MG/0.3 ML Syringe SUBCUT SCH (18:51)
[2023-02-15] MEDS: Sennosides/Docusate Sodium 50-8.6 MG Tab PO SCH (20:11)
[2023-02-15] MEDS: Simvastatin 20 MG Tab PO SCH (20:12)
[2023-02-16] MEDS: traMADol 50 MG Tab PO PRN (02:13)
[2023-02-16] MEDS: Levothyroxine 75 MCG Tab PO SCH (05:49)
[2023-02-16] MEDS: Pantoprazole 40 MG Tab.CR PO SCH (05:49)
[2023-02-16 07:10] LABS: BASOPHILS PERCENT AUTO 0.4 % (0.2-1.5); EOSINOPHILS ABSOLUTE AUTO 0.2 x10-3/uL (0.0-0.8); EOSINOPHILS PERCENT AUTO 4.1 % (0.6-8.1); HEMATOCRIT 30.1 % (34.2-48.2); HEMOGLOBIN 10.5 g/dL (11.4-15.5); LYMPHOCYTES ABSOLUTE AUTO 0.7 x10-3/uL (1.0-4.4); LYMPHOCYTES PERCENT AUTO 14.2 % (18.4-52.1); MEAN CORPUSCULAR HEMOGLOBIN 33.3 pg (23.9-33.9); MEAN CORPUSCULAR VOLUME 95.1 fL (76.7-100.5); MEAN PLATELET VOLUME 7.4 fL (7.1-12.4); MONOCYTES ABSOLUTE AUTO 0.4 x10-3/uL (0.3-1.0); MONOCYTES PERCENT AUTO 8.8 % (4.4-15.7); NEUTROPHILS ABSOLUTE AUTO 3.5 x10-3/uL (1.5-6.3); NEUTROPHILS PERCENT AUTO 72.5 % (30.8-76.2); PLATELET COUNT,PLT 183 x10(3)uL (151-488); RED BLOOD CELL COUNT 3.16 x10(6)uL (3.60-5.20); RED CELL DISTRIBUTION WIDTH 12.7 % (12.3-16.5); WHITE BLOOD CELL COUNT,WBC 4.8 x10-3/uL (3.0-10.3)
[2023-02-16 07:20] LABS: BLOOD UREA NITROGEN,BUN 22 mg/dL (7-18); BUN/CREATININE RATIO 16.9 (9-20); CALCIUM 8.4 mg/dL (8.6-10.2); CARBON DIOXIDE,CO2 28 mmol/L (21-32); CHLORIDE,CL 108 mmol/L (100-110); CREATININE 1.3 mg/dL (0.55-1.02); EST CRCL DRUG DOSING (CG) 26.84 mL/min; ESTIMATED GFR 41 mL/min (>60); GLUCOSE RANDOM 91 mg/dL (80-116); POTASSIUM,K 4.3 mmol/L (3.5-5.3); SODIUM,NA 140 mmol/L (135-145)
[2023-02-16 08:16] VITALS: BP 119/69; PULSE 69
[2023-02-16] MEDS: Aspirin 81 MG Tab.Chew PO SCH (08:20)
[2023-02-16] MEDS: Amoxicillin/Clavulanate K 500-125 MG Tab PO SCH (08:20)
[2023-02-16] MEDS: Hydrochlorothiazide/Lisinopril 12.5-10 MG Tab PO SCH (08:26)
[2023-02-16] MEDS ORDERED: carBAMazepine 200 MG TAB.ER PO SCH (09:00)
== END 2023-02-16 11:40 | disposition home health service (06) | DRG 689 ==
LOC: FB.ED 14:13 → FB.MS 17:56 → OBSVTOIN 02-13 08:30
PROVIDERS: ADMIT Student in an Organized Health Care Education/Training Program; ATTEND Student in an Organized Health Care Education/Training Program
DX: N30.00 Acute cystitis without hematuria (principal); G93.41 Metabolic encephalopathy; N17.9 Acute kidney failure, unspecified; K52.9 Noninfective gastroenteritis and colitis, unspecified; F03.90 Unspecified dementia, unspecified severity, without behavioral disturbance, psychotic disturbance, mood disturbance, and anxiety; B96.20 Unspecified Escherichia coli [E. coli] as the cause of diseases classified elsewhere; I69.320 Aphasia following cerebral infarction; E86.0 Dehydration; E78.5 Hyperlipidemia, unspecified; Z95.0 Presence of cardiac pacemaker; I10 Essential (primary) hypertension; E78.00 Pure hypercholesterolemia, unspecified; K59.00 Constipation, unspecified; G89.29 Other chronic pain; E03.9 Hypothyroidism, unspecified; Z98.49 Cataract extraction status, unspecified eye; Z79.899 Other long term (current) drug therapy; Z86.73 Personal history of transient ischemic attack (TIA), and cerebral infarction without residual deficits; Z79.82 Long term (current) use of aspirin; Z86.718 Personal history of other venous thrombosis and embolism
CPT/HCPCS: 36415; 70450; 71045; 74176; 80048; 80053; 81001; 82150; 83605; 83690; 84443; 84484; 85025; 86140; 87040; 87086; 87088; 87186; 93005; 93010; 96361; 96374; 96375; 97165-GO; 99223; 99232; 99238; 99284; 99285; A9270-GY; G0378; J0696; J1650; J2405; J3490; J7030

== ENCOUNTER 2023-02-21 14:47 | Emergency (ER) | payer MEDICARE, OTHER ==
[2023-02-21] MEDS ORDERED: Polyethylene Glycol 3350 Powder 238 GM Bot PO ONE (14:48)
[2023-02-21] MEDS ORDERED: Bisacodyl 5 MG Tab PO ONE (15:34)
[2023-02-21] MEDS ORDERED: Ondansetron 4 MG Tab.DIS PO PRN (15:35)
[2023-02-21] MEDS ORDERED: Polyethylene Glycol 3350 Powder 17 GM Packet PO ONE (15:36)
[2023-02-21] MEDS ORDERED: Lactulose Soln 10 GM/15 ML 30 ML UD Cup PO ONE (15:38)
[2023-02-21 16:47] VITALS: BP 139/69; PULSE 69
== END 2023-02-21 16:30 | disposition home or self-care (01) ==
LOC: FB.ED 14:47
DX: K59.00 Constipation, unspecified (principal); Z95.0 Presence of cardiac pacemaker; Z79.82 Long term (current) use of aspirin; Z79.899 Other long term (current) drug therapy; Z86.711 Personal history of pulmonary embolism
CPT/HCPCS: 74018; 99284; A9270; Q0162

== ENCOUNTER 2023-03-25 16:52 | Emergency (ER) | payer MEDICARE, OTHER ==
[2023-03-25 18:49] VITALS: BP 140/79; PULSE 82
== END 2023-03-25 19:00 | disposition home or self-care (01) ==
LOC: FB.ED 16:52
DX: K59.00 Constipation, unspecified (principal); I10 Essential (primary) hypertension; E78.00 Pure hypercholesterolemia, unspecified; E03.9 Hypothyroidism, unspecified; Z79.899 Other long term (current) drug therapy; Z79.82 Long term (current) use of aspirin
CPT/HCPCS: 74018; 99283

== ENCOUNTER 2023-04-04 16:31 | Emergency (ER) | payer MEDICARE, OTHER ==
[2023-04-04] MEDS ORDERED: Sodium Chloride 0.9% 10 ML Syringe FLUSH PRN ×2 (16:33→17:01)
[2023-04-04] MEDS ORDERED: Meclizine 25 MG Tab PO ONE (17:01)
[2023-04-04] MEDS ORDERED: Ondansetron 4 MG/2 ML SDV IVPUSH ONE (17:01)
[2023-04-04] MEDS ORDERED: Sodium Chloride 0.9% 1,000 ML IV SCH (17:15)
[2023-04-04 17:17] LABS: BASOPHILS PERCENT AUTO 0.4 % (0.2-1.5); EOSINOPHILS ABSOLUTE AUTO 0.1 x10-3/uL (0.0-0.8); EOSINOPHILS PERCENT AUTO 1.1 % (0.6-8.1); HEMATOCRIT 33.9 % (34.2-48.2); HEMOGLOBIN 11.9 g/dL (11.4-15.5); LYMPHOCYTES ABSOLUTE AUTO 0.7 x10-3/uL (1.0-4.4); LYMPHOCYTES PERCENT AUTO 12.2 % (18.4-52.1); MEAN CORPUSCULAR HEMOGLOBIN 33.1 pg (23.9-33.9); MEAN CORPUSCULAR HGB CONC 35.2 g/dL (31.9-34.8); MEAN PLATELET VOLUME 6.5 fL (7.1-12.4); MONOCYTES ABSOLUTE AUTO 0.5 x10-3/uL (0.3-1.0); MONOCYTES PERCENT AUTO 8.2 % (4.4-15.7); NEUTROPHILS ABSOLUTE AUTO 4.6 x10-3/uL (1.5-6.3); NEUTROPHILS PERCENT AUTO 78.1 % (30.8-76.2); PLATELET COUNT,PLT 194 x10(3)uL (151-488); RED CELL DISTRIBUTION WIDTH 12.8 % (12.3-16.5); WHITE BLOOD CELL COUNT,WBC 5.8 x10-3/uL (3.0-10.3)
[2023-04-04 17:22] LABS: BLOOD UREA NITROGEN,BUN 23 mg/dL (7-18); BUN/CREATININE RATIO 12.8 (9-20); CALCIUM 9.1 mg/dL (8.6-10.2); CARBON DIOXIDE,CO2 27 mmol/L (21-32); CHLORIDE,CL 94 mmol/L (100-110); CREATININE 1.8 mg/dL (0.55-1.02); ESTIMATED GFR 28 mL/min (>60); GLUCOSE RANDOM 114 mg/dL (80-116); POTASSIUM,K 4.6 mmol/L (3.5-5.3); SODIUM,NA 130 mmol/L (135-145)
[2023-04-04 17:28] LABS: A/G RATIO 1.1; ALANINE AMINOTRANSFERASE,ALT 11 U/L (12-36); ALBUMIN 3.8 g/dL (3.2-4.6); ALKALINE PHOSPHATASE 107 IU/L (56-112); ASPARTATE AMNIOTRANSFERASE,AST 19 IU/L (5-25); BILIRUBIN TOTAL 0.3 mg/dL (0.1-1.3); PROTEIN TOTAL,TP 7.3 g/dL (6.0-8.0)
[2023-04-04 20:49] VITALS: BP 146/71; PULSE 66
== END 2023-04-04 19:38 | disposition home or self-care (01) ==
LOC: FB.ED 16:31
DX: N17.9 Acute kidney failure, unspecified (principal); K52.9 Noninfective gastroenteritis and colitis, unspecified; E87.1 Hypo-osmolality and hyponatremia; E86.0 Dehydration; I10 Essential (primary) hypertension; E78.00 Pure hypercholesterolemia, unspecified; Z86.718 Personal history of other venous thrombosis and embolism; Z86.711 Personal history of pulmonary embolism; Z79.82 Long term (current) use of aspirin; Z79.899 Other long term (current) drug therapy; Z86.73 Personal history of transient ischemic attack (TIA), and cerebral infarction without residual deficits
CPT/HCPCS: 71045; 80053; 84484; 85025; 96361; 96374; 99285; A9270; J2405; J3490; J7030

== ENCOUNTER 2023-04-22 14:49 | Emergency (ER) | payer MEDICARE, OTHER ==
[2023-04-22 15:23] LABS: BASOPHILS PERCENT AUTO 0.4 % (0.2-1.5); EOSINOPHILS ABSOLUTE AUTO 0.1 x10-3/uL (0.0-0.8); EOSINOPHILS PERCENT AUTO 1.3 % (0.6-8.1); HEMATOCRIT 34.2 % (34.2-48.2); HEMOGLOBIN 11.5 g/dL (11.4-15.5); LYMPHOCYTES ABSOLUTE AUTO 0.7 x10-3/uL (1.0-4.4); LYMPHOCYTES PERCENT AUTO 12.2 % (18.4-52.1); MEAN CORPUSCULAR HEMOGLOBIN 31.9 pg (23.9-33.9); MEAN CORPUSCULAR HGB CONC 33.7 g/dL (31.9-34.8); MEAN CORPUSCULAR VOLUME 94.7 fL (76.7-100.5); MEAN PLATELET VOLUME 7.4 fL (7.1-12.4); MONOCYTES ABSOLUTE AUTO 0.5 x10-3/uL (0.3-1.0); NEUTROPHILS ABSOLUTE AUTO 4.7 x10-3/uL (1.5-6.3); NEUTROPHILS PERCENT AUTO 78.2 % (30.8-76.2); PLATELET COUNT,PLT 245 x10(3)uL (151-488); RED BLOOD CELL COUNT 3.61 x10(6)uL (3.60-5.20); RED CELL DISTRIBUTION WIDTH 12.9 % (12.3-16.5)
[2023-04-22 15:25] LABS: BLOOD UREA NITROGEN,BUN 32 mg/dL (7-18); BUN/CREATININE RATIO 21.3 (9-20); CALCIUM 8.9 mg/dL (8.6-10.2); CARBON DIOXIDE,CO2 30 mmol/L (21-32); CHLORIDE,CL 103 mmol/L (100-110); CREATININE 1.5 mg/dL (0.55-1.02); ESTIMATED GFR 35 mL/min (>60); GLUCOSE RANDOM 97 mg/dL (80-116); SODIUM,NA 139 mmol/L (135-145)
[2023-04-22 15:31] LABS: A/G RATIO 1.1; ALANINE AMINOTRANSFERASE,ALT 13 U/L (12-36); ALBUMIN 3.7 g/dL (3.2-4.6); ALKALINE PHOSPHATASE 113 IU/L (56-112); ASPARTATE AMNIOTRANSFERASE,AST 23 IU/L (5-25); BILIRUBIN TOTAL 0.4 mg/dL (0.1-1.3); PROTEIN TOTAL,TP 7.1 g/dL (6.0-8.0)
[2023-04-22 15:34] LABS: BILIRUBIN,URINE NEGATIVE (NEGATIVE); GLUCOSE,URINE NORMAL (NORMAL); KETONES,URINE NEGATIVE (NEGATIVE); LEUKOCYTE ESTERASE,URINE LARGE (NEGATIVE); NITRITE,URINE NEGATIVE (NEGATIVE); OCCULT BLOOD,URINE NEGATIVE (NEGATIVE); PH,URINE 6.5 (5.0-6.5); PROTEIN,URINE TRACE mg/dL (NEGATIVE); UROBILINOGEN,URINE NORMAL (NEGATIVE)
[2023-04-22 15:36] LABS: APPEARANCE,URINE SLIGHTLY CLOUDY (CLEAR); BACTERIA,URINE MODERATE (NS); COLOR,URINE YELLOW (YELLOW); RBC,URINE 0-5 (0-5); SQUAMOUS EPITHELIAL CELLS,UR FEW (NS,R,O)
[2023-04-22 16:02] LABS: CORONAVIRUS COVID-19 NAA NEGATIVE (NEGATIVE); INFLUENZA A NAA NEGATIVE (NEGATIVE); INFLUENZA B NAA NEGATIVE (NEGATIVE); RESPIRATORY SYNCYTIAL VIR NAA NEGATIVE (NEGATIVE)
[2023-04-22] MEDS: cefTRIAXone 1 GM Vial IM ONE (17:45)
[2023-04-22 18:44] VITALS: BP 133/70; PULSE 80
== END 2023-04-22 17:45 | disposition home or self-care (01) ==
LOC: FB.ED 14:49
DX: E86.0 Dehydration (principal); N30.00 Acute cystitis without hematuria; R74.8 Abnormal levels of other serum enzymes; I12.9 Hypertensive chronic kidney disease with stage 1 through stage 4 chronic kidney disease, or unspecified chronic kidney disease; N18.9 Chronic kidney disease, unspecified; N17.9 Acute kidney failure, unspecified; E78.00 Pure hypercholesterolemia, unspecified; E03.9 Hypothyroidism, unspecified; Z79.82 Long term (current) use of aspirin; Z79.899 Other long term (current) drug therapy; Z20.822 Contact with and (suspected) exposure to COVID-19
CPT/HCPCS: 0241U; 36415; 80053; 81001; 85025; 86140; 87086; 87088; 87186; 96372; 99285; J0696

== ENCOUNTER 2024-04-06 18:30 | Observation (INO) | payer MEDICARE, OTHER ==
[2024-04-06 19:02] LABS: BLOOD UREA NITROGEN,BUN 35 mg/dL (7-18); BUN/CREATININE RATIO 23.3 (9-20); CALCIUM 8.7 mg/dL (8.6-10.2); CARBON DIOXIDE,CO2 28 mmol/L (21-32); CHLORIDE,CL 106 mmol/L (100-110); CREATININE 1.5 mg/dL (0.55-1.02); ESTIMATED GFR 35 mL/min (>60); GLUCOSE RANDOM 101 mg/dL (80-116); POTASSIUM,K 4.8 mmol/L (3.5-5.3); SODIUM,NA 144 mmol/L (135-145)
[2024-04-06 19:03] LABS: BASOPHILS PERCENT AUTO 0.6 % (0.2-1.5); EOSINOPHILS ABSOLUTE AUTO 0.2 x10-3/uL (0.0-0.8); EOSINOPHILS PERCENT AUTO 2.5 % (0.6-8.1); HEMATOCRIT 38.4 % (34.2-48.2); LYMPHOCYTES ABSOLUTE AUTO 1.3 x10-3/uL (1.0-4.4); LYMPHOCYTES PERCENT AUTO 17.3 % (18.4-52.1); MEAN CORPUSCULAR HEMOGLOBIN 32.8 pg (23.9-33.9); MEAN CORPUSCULAR HGB CONC 33.9 g/dL (31.9-34.8); MEAN CORPUSCULAR VOLUME 96.8 fL (76.7-100.5); MEAN PLATELET VOLUME 7.5 fL (7.1-12.4); MONOCYTES ABSOLUTE AUTO 0.6 x10-3/uL (0.3-1.0); MONOCYTES PERCENT AUTO 7.8 % (4.4-15.7); NEUTROPHILS ABSOLUTE AUTO 5.3 x10-3/uL (1.5-6.3); NEUTROPHILS PERCENT AUTO 71.8 % (30.8-76.2); PLATELET COUNT,PLT 207 x10(3)uL (151-488); RED BLOOD CELL COUNT 3.97 x10(6)uL (3.60-5.20); RED CELL DISTRIBUTION WIDTH 12.5 % (12.3-16.5); WHITE BLOOD CELL COUNT,WBC 7.4 x10-3/uL (3.0-10.3)
[2024-04-06 19:09] LABS: PROTHROMBIN TIME 10.4 sec (9.0-11.1); PTT,PARTIAL THROMBOPLSTIN TIME 22.2 SECONDS (24.4-33.2)
[2024-04-06 19:10] LABS: APPEARANCE,URINE CLEAR (CLEAR); BILIRUBIN,URINE NEGATIVE (NEGATIVE); COLOR,URINE YELLOW (YELLOW); GLUCOSE,URINE NORMAL (NORMAL); KETONES,URINE NEGATIVE (NEGATIVE); LEUKOCYTE ESTERASE,URINE NEGATIVE (NEGATIVE); NITRITE,URINE POSITIVE (NEGATIVE); OCCULT BLOOD,URINE TRACE (NEGATIVE); PROTEIN,URINE NEGATIVE (NEGATIVE); UROBILINOGEN,URINE NORMAL (NEGATIVE)
[2024-04-06 19:11] LABS: BACTERIA,URINE MANY (NS); RBC,URINE 0-5 (0-5); SQUAMOUS EPITHELIAL CELLS,UR NOT SEEN (NS,R,O)
[2024-04-06 19:13] LABS: ALANINE AMINOTRANSFERASE,ALT 17 U/L (12-36); ALBUMIN 3.7 g/dL (3.2-4.6); ALKALINE PHOSPHATASE 179 IU/L (56-112); ASPARTATE AMNIOTRANSFERASE,AST 28 IU/L (5-25); BILIRUBIN TOTAL 0.3 mg/dL (0.1-1.3); PROTEIN TOTAL,TP 7.3 g/dL (6.0-8.0)
[2024-04-06] MEDS: Sodium Chloride 0.9% 1,000 ML IV SCH ×2 (19:33→20:42)
[2024-04-06] MEDS: cefTRIAXone 1 GM Vial IVPUSH SCH (19:33)
[2024-04-06] MEDS ORDERED: Sennosides/Docusate Sodium 50-8.6 MG Tab PO PRN (20:22)
[2024-04-06] MEDS ORDERED: Ondansetron 4 MG/2 ML SDV IV PRN (20:22)
[2024-04-06] MEDS: Acetaminophen 325 MG Tab PO PRN (22:28)
[2024-04-06] MEDS: Enoxaparin 30 MG/0.3 ML Syringe SUBCUT SCH (22:29)
[2024-04-07] MEDS ORDERED: Bisacodyl 10 MG Supp RECTAL PRN (02:18)
[2024-04-07] MEDS ORDERED: guaiFENesin 100 MG/5 ML Soln 5 ML UD Cup PO PRN (02:18)
[2024-04-07] MEDS ORDERED: Dicyclomine 10 MG Cap PO PRN (02:18)
[2024-04-07] MEDS ORDERED: Loperamide 2 MG Cap PO PRN (02:18)
[2024-04-07] MEDS ORDERED: Carbamide Peroxide 6.5% Otic Soln 15 ML Bottle EARBOTH PRN (02:18)
[2024-04-07] MEDS ORDERED: Aluminum Hydroxide/Magnesium Hydroxide Susp 30 ML Cup PO PRN (02:40)
[2024-04-07 04:48] VITALS: PULSE 78
[2024-04-07 06:48] LABS: BASOPHILS PERCENT AUTO 0.5 % (0.2-1.5); EOSINOPHILS ABSOLUTE AUTO 0.2 x10-3/uL (0.0-0.8); EOSINOPHILS PERCENT AUTO 3.1 % (0.6-8.1); HEMATOCRIT 37.9 % (34.2-48.2); HEMOGLOBIN 12.7 g/dL (11.4-15.5); LYMPHOCYTES ABSOLUTE AUTO 0.7 x10-3/uL (1.0-4.4); LYMPHOCYTES PERCENT AUTO 11.4 % (18.4-52.1); MEAN CORPUSCULAR HEMOGLOBIN 32.2 pg (23.9-33.9); MEAN CORPUSCULAR HGB CONC 33.5 g/dL (31.9-34.8); MEAN CORPUSCULAR VOLUME 96.3 fL (76.7-100.5); MEAN PLATELET VOLUME 7.5 fL (7.1-12.4); MONOCYTES ABSOLUTE AUTO 0.4 x10-3/uL (0.3-1.0); MONOCYTES PERCENT AUTO 7.2 % (4.4-15.7); NEUTROPHILS ABSOLUTE AUTO 4.6 x10-3/uL (1.5-6.3); NEUTROPHILS PERCENT AUTO 77.8 % (30.8-76.2); PLATELET COUNT,PLT 166 x10(3)uL (151-488); RED BLOOD CELL COUNT 3.93 x10(6)uL (3.60-5.20); RED CELL DISTRIBUTION WIDTH 12.8 % (12.3-16.5); WHITE BLOOD CELL COUNT,WBC 5.9 x10-3/uL (3.0-10.3)
[2024-04-07 07:04] LABS: ALANINE AMINOTRANSFERASE,ALT 17 U/L (12-36); ALBUMIN 3.4 g/dL (3.2-4.6); ALKALINE PHOSPHATASE 147 IU/L (56-112); ASPARTATE AMNIOTRANSFERASE,AST 25 IU/L (5-25); BILIRUBIN TOTAL 0.5 mg/dL (0.1-1.3); BLOOD UREA NITROGEN,BUN 25 mg/dL (7-18); BUN/CREATININE RATIO 20.8 (9-20); CALCIUM 8.3 mg/dL (8.6-10.2); CARBON DIOXIDE,CO2 25 mmol/L (21-32); CHLORIDE,CL 109 mmol/L (100-110); CREATININE 1.2 mg/dL (0.55-1.02); EST CRCL DRUG DOSING (CG) 28.59 mL/min; ESTIMATED GFR 45 mL/min (>60); GLUCOSE RANDOM 99 mg/dL (80-116); POTASSIUM,K 4.1 mmol/L (3.5-5.3); PROTEIN TOTAL,TP 6.7 g/dL (6.0-8.0); SODIUM,NA 143 mmol/L (135-145)
[2024-04-07] MEDS: Levothyroxine 75 MCG Tab PO SCH (07:52)
[2024-04-07] MEDS: Sodium Chloride 0.9% 10 ML Syringe FLUSH PRN (07:53)
[2024-04-07] MEDS: Aspirin 81 MG Tab.Chew PO SCH (09:10)
[2024-04-07] MEDS: carBAMazepine 200 MG TAB.ER PO SCH (09:11)
[2024-04-07 11:17] VITALS: BP 148/77
[2024-04-07] MEDS ORDERED: Gabapentin 100 MG Cap PO SCH (21:00)
[2024-04-08] MEDS ORDERED: Levothyroxine 25 MCG Tab PO SCH (06:00)
== END 2024-04-07 10:44 | disposition home or self-care (01) ==
LOC: FB.ED 18:30 → FB.MS 20:41
PROVIDERS: ADMIT Emergency Medicine; ATTEND Family Medicine
DX: N17.9 Acute kidney failure, unspecified (principal); I12.9 Hypertensive chronic kidney disease with stage 1 through stage 4 chronic kidney disease, or unspecified chronic kidney disease; N18.9 Chronic kidney disease, unspecified; E86.0 Dehydration; N30.00 Acute cystitis without hematuria; I63.9 Cerebral infarction, unspecified; E03.9 Hypothyroidism, unspecified; Z87.898 Personal history of other specified conditions; W19.XXXA Unspecified fall, initial encounter; Z79.82 Long term (current) use of aspirin; Z79.899 Other long term (current) drug therapy; Z79.890 Hormone replacement therapy
CPT/HCPCS: 36415; 70450; 71045; 80053; 81001; 85025; 85610; 85730; 87086; 87088; 87186; 94150; 96361; 96372; 96374; 99285; A9270; G0378; J0696; J1650; J3490; J7030; 99222; 99238

== ENCOUNTER 2025-03-06 08:45 | Inpatient (IN) | payer MEDICARE, OTHER, MEDICAID ==
[2025-03-06 09:46] LABS: MEAN PLATELET VOLUME 8.1 fL (7.1-12.4); PLATELET COUNT,PLT 155 x10(3)uL (151-488); RED BLOOD CELL COUNT 3.58 x10(6)uL (3.60-5.20); RED CELL DISTRIBUTION WIDTH 14.3 % (12.3-16.5); WHITE BLOOD CELL COUNT,WBC 10.2 x10-3/uL (3.0-10.3)
[2025-03-06 09:56] LABS: A/G RATIO 0.6; ALANINE AMINOTRANSFERASE,ALT 17 U/L (12-36); ASPARTATE AMNIOTRANSFERASE,AST 87 IU/L (5-25); BILIRUBIN TOTAL 0.6 mg/dL (0.1-1.3); BLOOD UREA NITROGEN,BUN 68 mg/dL (7-18); CARBON DIOXIDE,CO2 26 mmol/L (21-32); CHLORIDE,CL 102 mmol/L (100-110); ESTIMATED GFR 22 mL/min (>60); GLUCOSE RANDOM 133 mg/dL (80-116); POTASSIUM,K 3.8 mmol/L (3.5-5.3); PROTEIN TOTAL,TP 7.4 g/dL (6.0-8.0); SODIUM,NA 138 mmol/L (135-145)
[2025-03-06 10:01] LABS: LACTIC ACID 1.1 mmol/L (0.4-2.0)
[2025-03-06 10:04] LABS: LYMPHOCYTES PERCENT MAN 3 % (13-37); MONOCYTES PERCENT MAN 7 % (4-12); SEG NEUTROPHILS PERCENT MAN 90 % (46-82)
[2025-03-06 10:09] LABS: CREATININE 2.2 mg/dL (0.55-1.02)
[2025-03-06 10:19] LABS: PRO B-TYPE NATRIUR PEPT,BNPPRO 1674.0 pg/mL (<=450)
[2025-03-06 11:35] LABS: GLUCOSE,URINE NORMAL (NORMAL); OCCULT BLOOD,URINE TRACE (NEGATIVE)
[2025-03-06 11:37] LABS: APPEARANCE,URINE CLOUDY (CLEAR)
[2025-03-06 11:41] LABS: EPITHELIAL CELLS,URINE RARE
[2025-03-06] MEDS ORDERED: Ondansetron 4 MG/2 ML SDV IV PRN (13:30)
[2025-03-06] MEDS ORDERED: Magnesium Hydroxide 400 MG/5 ML Susp 30 ML Cup PO PRN (13:35)
[2025-03-06] MEDS ORDERED: guaiFENesin 100 MG/5 ML Soln 5 ML UD Cup PO PRN (13:35)
[2025-03-06] MEDS ORDERED: Aluminum Hydroxide/Magnesium Hydroxide Susp 30 ML Cup PO PRN (13:35)
[2025-03-06] MEDS ORDERED: Sennosides/Docusate Sodium 50-8.6 MG Tab PO PRN (13:35)
[2025-03-06] MEDS: Sodium Chloride 0.9% 10 ML Syringe FLUSH PRN (15:05)
[2025-03-06 17:26] LABS: INFLUENZA A NAA NEGATIVE (NEGATIVE); INFLUENZA B NAA NEGATIVE (NEGATIVE); RESPIRATORY SYNCYTIAL VIR NAA NEGATIVE (NEGATIVE)
[2025-03-06 17:31] LABS: CORONAVIRUS COVID-19 NAA POSITIVE (NEGATIVE)
[2025-03-06] MEDS: carBAMazepine 200 MG TAB.ER PO SCH (21:22)
[2025-03-07 06:30] LABS: BASOPHILS ABSOLUTE AUTO 0.0 x10-3/uL (0.0-0.1); BASOPHILS PERCENT AUTO 0.4 % (0.2-1.5); EOSINOPHILS ABSOLUTE AUTO 0.0 x10-3/uL (0.0-0.8); EOSINOPHILS PERCENT AUTO 0.1 % (0.6-8.1); LYMPHOCYTES ABSOLUTE AUTO 0.7 x10-3/uL (1.0-4.4); LYMPHOCYTES PERCENT AUTO 12.9 % (18.4-52.1); MEAN PLATELET VOLUME 8.0 fL (7.1-12.4); MONOCYTES ABSOLUTE AUTO 0.5 x10-3/uL (0.3-1.0); MONOCYTES PERCENT AUTO 8.8 % (4.4-15.7); NEUTROPHILS ABSOLUTE AUTO 4.0 x10-3/uL (1.5-6.3); NEUTROPHILS PERCENT AUTO 77.8 % (30.8-76.2); PLATELET COUNT,PLT 139 x10(3)uL (151-488); RED BLOOD CELL COUNT 3.24 x10(6)uL (3.60-5.20); RED CELL DISTRIBUTION WIDTH 14.6 % (12.3-16.5); WHITE BLOOD CELL COUNT,WBC 5.1 x10-3/uL (3.0-10.3)
[2025-03-07 06:47] LABS: PRO B-TYPE NATRIUR PEPT,BNPPRO 934.0 pg/mL (<=450)
[2025-03-07 06:51] LABS: A/G RATIO 0.6; ALANINE AMINOTRANSFERASE,ALT 30 U/L (12-36); ASPARTATE AMNIOTRANSFERASE,AST 145 IU/L (5-25); BILIRUBIN TOTAL 0.4 mg/dL (0.1-1.3); BLOOD UREA NITROGEN,BUN 53 mg/dL (7-18); CARBON DIOXIDE,CO2 26 mmol/L (21-32); CHLORIDE,CL 107 mmol/L (100-110); CREATININE 1.7 mg/dL (0.55-1.02); EST CRCL DRUG DOSING (CG) 20.74 mL/min; ESTIMATED GFR 30 mL/min (>60); GLUCOSE RANDOM 126 mg/dL (80-116); POTASSIUM,K 3.5 mmol/L (3.5-5.3); PROTEIN TOTAL,TP 6.7 g/dL (6.0-8.0); SODIUM,NA 141 mmol/L (135-145)
[2025-03-09 07:04] LABS: BASOPHILS ABSOLUTE AUTO 0.0 x10-3/uL (0.0-0.1); EOSINOPHILS ABSOLUTE AUTO 0.1 x10-3/uL (0.0-0.8); LYMPHOCYTES ABSOLUTE AUTO 0.7 x10-3/uL (1.0-4.4); MONOCYTES ABSOLUTE AUTO 0.4 x10-3/uL (0.3-1.0)
[2025-03-09 07:07] LABS: BASOPHILS PERCENT AUTO 0.5 % (0.2-1.5); EOSINOPHILS PERCENT AUTO 1.9 % (0.6-8.1); LYMPHOCYTES PERCENT AUTO 16.6 % (18.4-52.1); MEAN PLATELET VOLUME 7.8 fL (7.1-12.4); MONOCYTES PERCENT AUTO 9.4 % (4.4-15.7); NEUTROPHILS ABSOLUTE AUTO 3.0 x10-3/uL (1.5-6.3); NEUTROPHILS PERCENT AUTO 71.6 % (30.8-76.2); PLATELET COUNT,PLT 176 x10(3)uL (151-488); RED BLOOD CELL COUNT 2.87 x10(6)uL (3.60-5.20); RED CELL DISTRIBUTION WIDTH 14.3 % (12.3-16.5); WHITE BLOOD CELL COUNT,WBC 4.2 x10-3/uL (3.0-10.3)
[2025-03-09 07:08] LABS: BLOOD UREA NITROGEN,BUN 33 mg/dL (7-18); CARBON DIOXIDE,CO2 26 mmol/L (21-32); CHLORIDE,CL 112 mmol/L (100-110); CREATININE 1.3 mg/dL (0.55-1.02); EST CRCL DRUG DOSING (CG) 27.12 mL/min; ESTIMATED GFR 41 mL/min (>60); GLUCOSE RANDOM 97 mg/dL (80-116); POTASSIUM,K 3.4 mmol/L (3.5-5.3); SODIUM,NA 145 mmol/L (135-145)
[2025-03-10 07:03] LABS: MEAN PLATELET VOLUME 7.7 fL (7.1-12.4); PLATELET COUNT,PLT 207 x10(3)uL (151-488); RED BLOOD CELL COUNT 2.92 x10(6)uL (3.60-5.20); RED CELL DISTRIBUTION WIDTH 14.4 % (12.3-16.5); WHITE BLOOD CELL COUNT,WBC 4.5 x10-3/uL (3.0-10.3)
[2025-03-10 07:08] LABS: BLOOD UREA NITROGEN,BUN 27 mg/dL (7-18); CARBON DIOXIDE,CO2 25 mmol/L (21-32); CHLORIDE,CL 111 mmol/L (100-110); CREATININE 1.2 mg/dL (0.55-1.02); EST CRCL DRUG DOSING (CG) 29.38 mL/min; ESTIMATED GFR 45 mL/min (>60); GLUCOSE RANDOM 98 mg/dL (80-116); POTASSIUM,K 3.5 mmol/L (3.5-5.3); SODIUM,NA 142 mmol/L (135-145)
[2025-03-10 07:17] LABS: LYMPHOCYTES PERCENT MAN 27 % (13-37); MONOCYTES PERCENT MAN 11 % (4-12); SEG NEUTROPHILS PERCENT MAN 62 % (46-82)
[2025-03-10 14:05] VITALS: BP 134/79; PULSE 88
== END 2025-03-10 14:05 | disposition home health service (06) | DRG 177 ==
LOC: FB.ED 08:45 → FB.MS 11:26
PROVIDERS: ADMIT Family Medicine; ATTEND Family Medicine
DX: U07.1 COVID-19 (principal); J18.9 Pneumonia, unspecified organism; N17.9 Acute kidney failure, unspecified; N39.0 Urinary tract infection, site not specified; N18.4 Chronic kidney disease, stage 4 (severe); B96.20 Unspecified Escherichia coli [E. coli] as the cause of diseases classified elsewhere; Z79.890 Hormone replacement therapy; H54.7 Unspecified visual loss; E78.00 Pure hypercholesterolemia, unspecified; K59.00 Constipation, unspecified; M54.9 Dorsalgia, unspecified; G89.29 Other chronic pain; R56.9 Unspecified convulsions; E03.9 Hypothyroidism, unspecified; E86.0 Dehydration; I12.9 Hypertensive chronic kidney disease with stage 1 through stage 4 chronic kidney disease, or unspecified chronic kidney disease; F03.90 Unspecified dementia, unspecified severity, without behavioral disturbance, psychotic disturbance, mood disturbance, and anxiety; S22.000D Wedge compression fracture of unspecified thoracic vertebra, subsequent encounter for fracture with routine healing; Z79.899 Other long term (current) drug therapy; Z79.82 Long term (current) use of aspirin; Z98.49 Cataract extraction status, unspecified eye; Z86.718 Personal history of other venous thrombosis and embolism; Z95.0 Presence of cardiac pacemaker; Z86.73 Personal history of transient ischemic attack (TIA), and cerebral infarction without residual deficits
CPT/HCPCS: 36415; 71250 ×2; 80053; 81001; 83605; 83880; 84484; 85025; 86140; 87086; 87088; 87186; 96360; 96361; 99285; J7030; 71046; 71046-26; 80048; 87040; 87637; 94150; 94640; 97116-GP; 97161-GP; 97165-GO; 97530-GO; 97530-GP; 97535-GO; 99223; 99232; 99238; A9270-GY; J0696; J1271; J1650